=== PATIENT | female | born 1945 | race Caucasian/White ===

== ENCOUNTER 2016-10-26 15:03 | Outpatient (CLI) | payer MEDICARE | END 2016-10-26 15:04 | disposition home or self-care (01) | DX: J44.9 Chronic obstructive pulmonary disease, unspecified (principal); R89.9 Unspecified abnormal finding in specimens from other organs, systems and tissues; R63.0 Anorexia; R63.4 Abnormal weight loss; R53.83 Other fatigue; Z79.899 Other long term (current) drug therapy ==

== ENCOUNTER 2016-11-17 13:46 | Outpatient (CLI) | payer MEDICARE | END 2016-11-17 13:47 | disposition home or self-care (01) | DX: F31.9 Bipolar disorder, unspecified (principal) ==

== ENCOUNTER 2016-12-21 16:57 | Outpatient (CLI) | payer MEDICARE | END 2016-12-21 16:58 | disposition home or self-care (01) | DX: R10.2 Pelvic and perineal pain (principal); Z90.710 Acquired absence of both cervix and uterus ==

== ENCOUNTER 2017-11-10 13:11 | Outpatient (CLI) | payer MEDICARE ==
[2017-11-10 18:24] LABS: BASOPHILS # (AUTO) 0.1 10^3/uL (0.0-0.1); BASOPHILS % (AUTO) 0.6 %; EOSINOPHILS % (AUTO) 0.1 %; HGB - HEMOGLOBIN 14.1 g/dL (12.0-16.0); LYMPHOCYTES # (AUTO) 1.1 10^3/uL (1.5-3.5); LYMPHOCYTES % (AUTO) 7.9 %; MEAN CORPUSCULAR HEMOGLOBIN 29.3 pg (27.0-31.0); MEAN CORPUSCULAR HGB CONC 33.3 g/dL (32.0-36.0); MEAN PLATELET VOLUME 10.9 fL (7.9-10.8); MONOCYTES # (AUTO) 0.4 10^3/uL (0.0-1.0); MONOCYTES % (AUTO) 3.1 %; NEUTROPHILS # (AUTO) 12.3 10^3/uL (1.5-6.6); NEUTROPHILS % (AUTO) 88.3 %; PLT - PLATELET COUNT 241 10^3/uL (130-450); RED BLOOD COUNT 4.82 10^6/uL (4.20-5.40); RED CELL DISTRIBUTION WIDTH 13.9 % (12.0-15.0)
[2017-11-10 18:27] LABS: ALBUMIN 4.4 g/dL (3.2-5.5); ALBUMIN/GLOBULIN RATIO 1.7 (1.0-2.2); ALKALINE PHOSPHATASE 50 IU/L (42-121); ALT ALANINE AMINOTRANSFERASE 18 IU/L (10-60); AST ASPARTATE AMINOTRANSFERASE 25 IU/L (10-42); BUN - BLOOD UREA NITROGEN 16 mg/dL (6-20); CALCIUM 9.6 mg/dL (8.5-10.3); CARBON DIOXIDE - CO2 27 mmol/L (21-32); CHLORIDE 100 mmol/L (101-111); CHOL/HDL RATIO 2.6 (<4.4); CHOLESTEROL 182 mg/dL; CREATININE 0.7 mg/dL (0.4-1.0); GFR - MDRD 83 (>89); GLUCOSE 109 mg/dL (70-100); HDL CHOLESTEROL 69 mg/dL; LDL CHOLESTEROL,CALCULATED 94 mg/dL; LDL/HDL RATIO 1.4 (<4.4); SODIUM 137 mmol/L (135-145); VLDL CHOLESTEROL 19 mg/dL
[2017-11-10 18:44] LABS: VALPROIC ACID (DEPAKOTE) < 10.0 ug/mL
== END 2017-11-10 13:12 | disposition home or self-care (01) ==
LOC: LAB.F 13:11
PROVIDERS: ATTEND Family Medicine
DX: F31.9 Bipolar disorder, unspecified (principal); J44.9 Chronic obstructive pulmonary disease, unspecified; R63.4 Abnormal weight loss; R10.13 Epigastric pain; Z51.81 Encounter for therapeutic drug level monitoring; Z79.899 Other long term (current) drug therapy
CPT/HCPCS: 36415; 80053; 80061; 80164; 82306; 83721; 84443; 85025

== ENCOUNTER 2018-08-10 16:46 | Outpatient (CLI) | payer MEDICARE | END 2018-08-10 16:47 | disposition home or self-care (01) | LOC: EMS 16:46 | PROVIDERS: ATTEND Surgery | DX: R06.02 Shortness of breath (principal); Z53.20 Procedure and treatment not carried out because of patient's decision for unspecified reasons ==

== ENCOUNTER 2018-12-18 08:54 | Outpatient (CLI) | payer MEDICARE ==
[2018-12-18 10:41] LABS: BASOPHILS # (AUTO) 0.1 10^3/uL (0.0-0.1); BASOPHILS % (AUTO) 0.6 %; EOSINOPHILS # (AUTO) 0.2 10^3/uL (0.0-0.7); EOSINOPHILS % (AUTO) 1.9 %; HGB - HEMOGLOBIN 13.5 g/dL (12.0-16.0); LYMPHOCYTES # (AUTO) 3.9 10^3/uL (1.5-3.5); LYMPHOCYTES % (AUTO) 35.8 %; MEAN CORPUSCULAR HEMOGLOBIN 29.4 pg (27.0-31.0); MEAN CORPUSCULAR HGB CONC 33.4 g/dL (32.0-36.0); MEAN PLATELET VOLUME 10.7 fL (7.9-10.8); MONOCYTES # (AUTO) 1.1 10^3/uL (0.0-1.0); MONOCYTES % (AUTO) 9.9 %; NEUTROPHILS # (AUTO) 5.7 10^3/uL (1.5-6.6); NEUTROPHILS % (AUTO) 51.8 %; PLT - PLATELET COUNT 233 10^3/uL (130-450); RED BLOOD COUNT 4.61 10^6/uL (4.20-5.40); RED CELL DISTRIBUTION WIDTH 13.8 % (12.0-15.0)
[2018-12-18 10:44] LABS: HB2 TOTAL 14.1 g/dL; HEMOGLOBIN A1C 0.49 g/dL; HEMOGLOBIN A1C % 5.3 % (4.6-6.2)
[2018-12-18 10:54] LABS: ALBUMIN 3.9 g/dL (3.2-5.5); ALBUMIN/GLOBULIN RATIO 1.7 (1.0-2.2); ALKALINE PHOSPHATASE 49 IU/L (42-121); ALT ALANINE AMINOTRANSFERASE 18 IU/L (10-60); AST ASPARTATE AMINOTRANSFERASE 23 IU/L (10-42); BILIRUBIN,TOTAL 0.6 mg/dL (0.2-1.0); BUN - BLOOD UREA NITROGEN 16 mg/dL (6-20); CALCIUM 9.1 mg/dL (8.5-10.3); CARBON DIOXIDE - CO2 28 mmol/L (21-32); CHLORIDE 100 mmol/L (101-111); CHOLESTEROL 179 mg/dL; CREATININE 0.8 mg/dL (0.4-1.0); GFR - MDRD 71 (>89); GLUCOSE 97 mg/dL (70-100); HDL CHOLESTEROL 60 mg/dL; LDL CHOLESTEROL,CALCULATED 103 mg/dL; LDL/HDL RATIO 1.7 (<4.4); SODIUM 136 mmol/L (135-145); TOTAL PROTEIN 6.2 g/dL (6.7-8.2); VALPROIC ACID (DEPAKOTE) 102.4 ug/mL; VLDL CHOLESTEROL 16 mg/dL
== END 2018-12-18 08:55 | disposition home or self-care (01) ==
LOC: LAB.F 08:54
PROVIDERS: ATTEND Registered Nurse
DX: Z00.00 Encounter for general adult medical examination without abnormal findings (principal); F31.9 Bipolar disorder, unspecified
CPT/HCPCS: 36415; 80053; 80061; 80164; 83036; 83721; 84443; 85025

== ENCOUNTER 2019-05-06 15:42 | Outpatient (CLI) | payer MEDICARE | END 2019-05-06 15:43 | disposition critical access hospital (66) | LOC: EMS 15:42 | PROVIDERS: ATTEND Surgery | DX: M54.5 Low back pain (principal); R06.02 Shortness of breath | CPT/HCPCS: A0425; A0427 ==

== ENCOUNTER 2019-05-06 16:15 | Emergency (ER) | payer MEDICARE ==
[2019-05-06] MEDS ORDERED: KETOROLAC 30 MG/ML VIAL IVP STA (16:38)
[2019-05-06] MEDS ORDERED: CYCLOBENZAPRINE 10 MG TABLET PO STA (16:38)
--- NOTE | 2019-05-06 16:43 | ED Physician Documentation ---
PD HPI BACK PAIN - Stated complaint Stated Complaint: BACK PX - Chief complaint Chief Complaint: Back Pain - History obtained from History obtained from: Patient, EMS - History of Present Illness Timing - onset: How many days ago (2) Timing - duration: Days (2) Timing - details: Gradual onset Pain level max: 7 Pain level now: 5 Location: Lower, Right, Left Quality: Pain, Spasm Associated symptoms: No: Fever, Weakness, Numbness, Incontinent of urine, Unable to urinate, Hematuria, Incontinent of stool Improves with: Rest Worsened by: Movement, Lifting Contributing factors: Other (cleaning the shower) Similar symptoms before: Has not had sx before Recently seen: Not recently seen Review of Systems Ten Systems: 10 systems reviewed and negative Constitutional: denies: Fever, Chills Respiratory: denies: Cough GI: denies: Nausea, Vomiting, Diarrhea : denies: Dysuria, Incontinent, Hematuria Skin: denies: Rash Musculoskeletal: denies: Neck pain Neurologic: denies: Focal weakness, Numbness, Headache PD PAST MEDICAL HISTORY - Past Medical History Past Medical History: Yes Respiratory: COPD Endocrine/Autoimmune: HyPOthyroidism - Present Medications Home Medications: Ambulatory Orders Medication Instructions Recorded Confirmed Albuterol Sulf [Ventolin Hfa 1 - 2 puffs INH Q4HR PRN 05/06/19 05/06/19 Inhaler] Ciclesonide [Alvesco] 6.1 gm IH 05/06/19 Cyclobenzaprine [Flexeril] 10 mg PO TID PRN #20 tablet 05/06/19 Hydrocodone/Acetaminophen 1 - 2 each PO Q6H PRN #14 tablet 05/06/19 [Hydrocodon-Acetaminophen 5-325] Ipratropium/Albuterol [Duoneb] 3 ml INH Q6H 05/06/19 05/06/19 Levothyroxine [Synthroid] 50 mcg PO QDAC 05/06/19 05/06/19 Tiotropium Br/Olodaterol HCl 4 gm IH 05/06/19 [Stiolto Respimat Inhal [place]] - Allergies Allergies/Adverse Reactions: Allergies Allergy/AdvReac Type Severity Reaction Status Date / Time Barbiturates Allergy Unknown Verified 05/06/19 16:31 - Living Situation Living Situation: reports: With family Living Arrangement: reports: At home - Social History Does the pt have substance abuse?: No - Family History Family history: reports: Non contributory PD ED PE NORMAL - Vitals Vital signs reviewed: Yes - General General: Alert and oriented X 3, No acute distress, Well developed/nourished - HEENT HEENT: PERRL, Moist mucous membranes - Neck Neck: Supple, no meningeal sign - Cardiac Cardiac: RRR, Strong equal pulses - Respiratory Respiratory: No respiratory distress, Clear bilaterally - Abdomen Abdomen: Soft, Non tender, Non distended - Back Back: Other (Mild low lumbar tenderness to palpation. Mostly paraspinal. No step-off or deformity. Spasm present.) - Derm Derm: Warm and dry - Extremities Extremities: Other (Normal bilateral lower extremity patellar and ankle jerk reflexes. Normal great toe extension bilaterally. no saddle anesthesia) - Neuro Neuro: Alert and oriented X 3, No motor deficit, No sensory deficit - Psych Psych: Normal mood, Normal affect Results - Vitals Vitals: Vital Signs - 24 hr 05/06/19 05/06/19 05/06/19 16:15 16:31 18:21 Temperature 36.6 C Heart Rate 79 71 73 Respiratory 20 18 16 Rate Blood Pressure 141/74 H 141/97 H 139/86 H O2 Saturation 92 97 98 05/06/19 18:48 Temperature 36.5 C Heart Rate Respiratory Rate Blood Pressure O2 Saturation Oxygen O2 Source Nasal cannula - Rads (name of study) lumbar spine xray Radiology: Prelim report reviewed, EMP read contemporaneously, See rad report (No acute abnormality) PD MEDICAL DECISION MAKING - ED course Complexity details: reviewed results, re-evaluated patient, considered differential (No cauda equina, no spinal epidural abscess, no fracture, no aortic dissection or evidence of aneursym rupture), d/w patient, d/w family ED course: 73-year-old female presents to the emergency department what appears to be back spasm. Pain well controlled. Feels better. No acute findings on x-ray. No evidence of cauda equina or epidural abscess. No fractures. We will continue pain medications and muscle relaxants for home. Patient will follow-up with her doctor. Patient counseled regarding signs and symptoms for which I believe and urgent re-evaluation would be necessary. Patient with good understanding of and agreement to plan and is comfortable going home at this time This document was made in part using voice recognition software. While efforts are made to proofread this document, sound alike and grammatical errors may occur. Ambulating well Departure - Departure Disposition: 01 Home, Self Care Clinical Impression: Back pain Qualifiers: Back pain location: low back pain Chronicity: acute Back pain laterality: bilateral Sciatica presence: without sciatica Qualified Code(s): M54.5 - Low back pain Condition: Good Instructions: ED Spasm Back No Trauma Follow-Up: Hernán Hebert MD [Primary Care Provider] - Within 3 Days Prescriptions: Cyclobenzaprine [Flexeril] 10 mg PO TID PRN #20 tablet PRN Reason: Spasms Hydrocodone/Acetaminophen [Hydrocodon-Acetaminophen 5-325] 1 - 2 each PO Q6H PRN #14 tablet PRN Reason: pain Comments: Use the medications as prescribed. This should improve over the next few days. Continue to gently stretch her back. Return if you worsen. Do not drink alcohol or drive while on narcotic pain medicine. Note that many narcotic pain relievers also contain tylenol/acetaminophen. Please ensure that your total dose of acetaminophen from all sources does not exceed 3 grams (3000mg) per day. You may constipated on this medication, take a stool softener such as "Colace" twice a day while you are on it. Also recommend a tudi-rut-kagenjh laxative such as senna or MiraLAX any day that you do not have a bowel movement. If you received narcotic pain medication in the emergency department, do not drive or operate machinery for the next 24 hours. Discharge Date/Time: 05/06/19 18:48
--- NOTE | 2019-05-06 17:49 | XRAY Report ---
Reason: low back pain Procedure Date: 05/06/2019 Accession Number: [id number] / [id number] Procedure: XR - Lumbar Spine 2 View CPT Code: FULL RESULT: EXAM: LUMBOSACRAL SPINE RADIOGRAPHY EXAM DATE: 05/06/2019 05:14 PM. CLINICAL HISTORY: Low back pain. COMPARISONS: None. TECHNIQUE: 3 views. FINDINGS: Alignment: Normal. No spondylolisthesis or scoliosis. Bones: Five bld-tkf-faggchh lumbar vertebral bodies are present. Vertebral bodies appeared normal in height. No acute fracture. Disks: There is moderate disk height loss at L4-L5. There is mild to moderate disk height loss at L1-L2 and L2-L3. Facets: Satisfactory alignment. Sacroiliac Joints: Unremarkable. Soft Tissues: Normal. The visualized bowel gas pattern is normal. IMPRESSION: 1. Moderate disk height loss at L4-L5 with multilevel chronic degenerative disk disease. No fracture or subluxation. RADIA
[2019-05-06] MEDS ORDERED: HYDROcod/ACET 5/325 Prepack 4 PO STA (18:02)
[2019-05-06 18:23] VITALS: BP 139/86
== END 2019-05-06 18:48 | disposition home or self-care (01) ==
LOC: EDBD → ED 16:15
DX: M54.5 Low back pain (principal)
CPT/HCPCS: 72100; 96374; 99283; 99284; A9270

== ENCOUNTER 2021-01-31 09:44 | Outpatient (CLI) | payer MEDICARE ==
[2021-01-31 15:23] LABS: BASOPHILS # (AUTO) 0.1 10^3/uL (0.0-0.1); BASOPHILS % (AUTO) 0.9 %; EOSINOPHILS # (AUTO) 0.2 10^3/uL (0.0-0.7); EOSINOPHILS % (AUTO) 2.3 %; HCT - HEMATOCRIT 41.6 % (37.0-47.0); HGB - HEMOGLOBIN 13.7 g/dL (12.0-16.0); LYMPHOCYTES % (AUTO) 39.9 %; MEAN CORPUSCULAR HEMOGLOBIN 29.5 pg (27.0-31.0); MEAN CORPUSCULAR HGB CONC 32.9 g/dL (32.0-36.0); MEAN CORPUSCULAR VOLUME 89.5 fL (81.0-99.0); MEAN PLATELET VOLUME 12.9 fL (7.9-10.8); MONOCYTES # (AUTO) 0.8 10^3/uL (0.0-1.0); MONOCYTES % (AUTO) 10.1 %; NEUTROPHILS # (AUTO) 3.5 10^3/uL (1.5-6.6); NEUTROPHILS % (AUTO) 46.5 %; PLT - PLATELET COUNT 238 10^3/uL (130-450); RED BLOOD COUNT 4.65 10^6/uL (4.20-5.40); RED CELL DISTRIBUTION WIDTH 13.3 % (12.0-15.0); WHITE BLOOD COUNT 7.5 x10^3/uL (4.8-10.8)
[2021-01-31 15:56] LABS: ALBUMIN/GLOBULIN RATIO 1.6 (1.0-2.2); ALKALINE PHOSPHATASE 53 IU/L (42-121); ALT ALANINE AMINOTRANSFERASE 12 IU/L (10-60); AST ASPARTATE AMINOTRANSFERASE 18 IU/L (10-42); BILIRUBIN,TOTAL 0.9 mg/dL (0.2-1.0); BUN - BLOOD UREA NITROGEN 8 mg/dL (6-20); CALCIUM 9.4 mg/dL (8.5-10.3); CARBON DIOXIDE - CO2 24 mmol/L (21-32); CHLORIDE 98 mmol/L (101-111); CHOL/HDL RATIO 3.5 (<4.4); CHOLESTEROL 177 mg/dL; CREATININE 0.6 mg/dL (0.4-1.0); GFR - MDRD 98 (>89); GLUCOSE 98 mg/dL (70-100); HDL CHOLESTEROL 50 mg/dL; LDL CHOLESTEROL,CALCULATED 105 mg/dL; LDL/HDL RATIO 2.1 (<4.4); POTASSIUM 3.8 mmol/L (3.5-5.0); SODIUM 132 mmol/L (135-145); TOTAL PROTEIN 6.5 g/dL (6.7-8.2); TRIGLYCERIDES 108 mg/dL; VLDL CHOLESTEROL 22 mg/dL
[2021-01-31 16:06] LABS: THYROID STIMULATING HORMONE 4.03 uIU/mL (0.34-5.60)
== END 2021-01-31 09:45 | disposition home or self-care (01) ==
LOC: LAB.S 09:44
PROVIDERS: ATTEND Internal Medicine
DX: Z00.00 Encounter for general adult medical examination without abnormal findings (principal); J44.9 Chronic obstructive pulmonary disease, unspecified; E03.9 Hypothyroidism, unspecified
CPT/HCPCS: 36415; 80053; 80061; 83721; 84443; 85025

== ENCOUNTER 2022-08-04 07:00 | Outpatient (CLI) | payer MEDICARE ==
--- NOTE | 2022-08-04 17:27 | XRAY Report ---
PROCEDURE: Chest 2 View X-Ray INDICATIONS: COPD TECHNIQUE: 2 views of the chest were acquired. COMPARISON: None FINDINGS: Surgical changes and devices: None. Lungs and pleura: No pleural effusions or pneumothorax. The lungs are hyperinflated. There is a 2 cm irregular nodular opacity in the lateral right upper lobe. Lungs are otherwise clear. Minor bronchia l wall thickening in the perihilar regions. Mediastinum: Mediastinal contours are normal. Heart size is normal. Bones and chest wall: No suspicious bony abnormalities. Soft tissues appear unremarkable. IMPRESSION: 1. Changes of emphysema and COPD. 2. 2 cm right upper lobe nodule. Chest CT with contrast is recommended for further evaluation. Reviewed by: Gogo Rosado MD on 08/04/2022 5:26 PM PST Approved by: Gogo Rosado MD on 08/04/2022 5:26 PM PST Station ID: [id number]
== END 2022-08-04 07:01 | disposition home or self-care (01) ==
LOC: DI.S 07:00
PROVIDERS: ATTEND Emergency Medicine
DX: J43.9 Emphysema, unspecified (principal)

== ENCOUNTER 2022-08-25 14:22 | Outpatient (CLI) | payer MEDICARE ==
[2022-08-25 14:57] LABS: CREATININE 0.6 mg/dL (0.4-1.0)
[2022-08-25] MEDS ORDERED: iohexoL-300 100 ML VIAL IVP ONE (16:25)
--- NOTE | 2022-08-25 17:52 | CT Report ---
PROCEDURE: CHEST W INDICATIONS: LUNG NODULE CONTRAST:100mL Omni 300 TECHNIQUE: After the administration of intravenous contrast, 1 mm axial images were acquired from the pulmonary apices through the posterior costophrenic angles. Axial 5 mm soft tissue kernel reconstructions were performed as well as 8 mm axial MIP and coronal and sagittal 5 mm reformations. For radiation dose reduction, the following was used: automated exposure control, adjustment of mA and/or kV according to patient size. COMPARISON: Chest 2 views dated 08/04/2022. FINDINGS: Image quality: Excellent. Lungs and pleura: Large spiculated right upper lobe mass consistent with primary bronchogenic carcin leonila measuring 2.9 x 2.5 cm on image 68/4. There is retraction of the subjacent pleura to the mass, li bobby representing pleural surface involvement by neoplasm. No other pulmonary masses. At least modera te centrilobular emphysema. No acute air space opacities. No pleural effusions or pneumothorax. J Luis tral and peripheral airways are patent and normal in caliber. Mediastinum: Heart size is normal. No pericardial effusion. No mediastinal or hilar adenopathy by size criteria. There is a small right hilar lymph node which is not suspicious by size criteria. Tho racic aorta and central pulmonary arteries are normal in size. Esophagus is normal in caliber. No h iatal hernia. Bones and chest wall: No suspicious bony lesions. No vertebral body compression fractures. No axil kervin or supraclavicular adenopathy by size criteria. Thyroid is unremarkable.. Abdomen: Visualized upper abdominal solid organs appear normal. Upper abdominal bowel loops are nor mal in caliber. IMPRESSION: 1. 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 2. No evidence of metastatic disease in the chest. Comment: The lung mass would be amenable to CT-guided biopsy for diagnosis, with a relatively large r isk of pneumothorax. Also, would recommend PET/CT for staging of presence or absence of metastatic di sease. CLINICAL RECOMMENDATION STATEMENTS: In patients <35 years with an ITN detected on CT, MRI, or extrathyroidal ultrasound, the Committee re commends further evaluation with dedicated thyroid ultrasound if the nodule is "e1 cm and has no susp icious imaging features, and if the patient has normal life expectancy. In patients "e35 years with an ITN detected on CT, MRI, or extrathyroidal ultrasound, the Committee r ecommends further evaluation with dedicated thyroid ultrasound if the nodule is "e1.5 cm and has no s uspicious imaging features, and if the patient has normal life expectancy. (ACR, 2014) Reviewed by: Flo Hall MD on 08/25/2022 5:51 PM PST Approved by: Flo Hall MD on 08/25/2022 5:51 PM PST Station ID: [id number]
== END 2022-08-25 14:23 | disposition home or self-care (01) ==
LOC: LAB 14:22
PROVIDERS: ATTEND Nurse Practitioner
DX: C34.11 Malignant neoplasm of upper lobe, right bronchus or lung (principal); J43.2 Centrilobular emphysema
CPT/HCPCS: 36415; 82565

== ENCOUNTER 2022-11-04 08:48 | Outpatient (CLI) | payer MEDICARE | END 2022-11-04 23:59 | disposition left against medical advice (07) | LOC: EMS 08:48 | DX: R06.03 Acute respiratory distress (principal); R32 Unspecified urinary incontinence ==

== ENCOUNTER 2022-11-04 18:19 | Outpatient (CLI) | payer MEDICARE | END 2022-11-04 23:59 | disposition critical access hospital (66) | LOC: EMS 18:19 | DX: R06.03 Acute respiratory distress (principal) | CPT/HCPCS: A0425; A0427 ==

== ENCOUNTER 2022-11-04 18:49 | Inpatient (IN) | payer MEDICARE ==
--- NOTE | 2022-11-04 19:27 | ED Physician Documentation ---
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 She reportedly called EMS this morning and received a neb treatment but did not want transport at that time. Her breathing has become worse throughout the day which is unrelieved by her home breathing treatments or the fact that she is already on prednisone 20 mg. EMS was again called this evening and patient was given 1 g of IV magnesium as well as numerous DuoNeb treatments and 125 of IV Solu-Medrol. Per RN and RT at the bedside, her breathing has started to improve since she arrived to the emergency department. She reports having a productive cough of yellow sputum. Denies blood in her sputum. She denies known fevers. She does continue to smoke cigarettes.She is scheduled for her first radiation appointment in the upcoming weeks. She is not currently on chemotherapy. Review of Systems Constitutional: denies: Fever Cardiac: denies: Chest pain / pressure Respiratory: reports: Dyspnea, Cough GI: denies: Abdominal Pain, Vomiting Neurologic: denies: Headache PD PAST MEDICAL HISTORY - Past Medical History Respiratory: COPD Endocrine/Autoimmune: HyPOthyroidism - Past Surgical History General: Appendectomy - Present Medications Home Medications: Ambulatory Orders Medication Instructions Recorded Confirmed Albuterol Sulf [Ventolin Hfa 1 - 2 puffs INH Q4HR PRN 05/06/19 05/06/19 Inhaler] Ciclesonide [Alvesco] 6.1 gm IH BID 05/06/19 Cyclobenzaprine [Flexeril] 10 mg PO TID PRN #20 tablet 05/06/19 Hydrocodone/Acetaminophen 1 - 2 each PO Q6H PRN #14 tablet 05/06/19 [Hydrocodon-Acetaminophen 5-325] Ipratropium/Albuterol [Duoneb] 3 ml INH Q6H 05/06/19 05/06/19 Levothyroxine [Synthroid] 5 mcg PO QDAC 05/06/19 05/06/19 Tiotropium Br/Olodaterol HCl 4 gm IH 05/06/19 [Stiolto Respimat Inhal [place]] Alprazolam [Xanax] 0.25 mg PO ONCE 09/13/22 09/13/22 Clotrimazole Umer [Clotrimazole] 10 mg MM PRN PRN 09/13/22 09/13/22 Divalproex Sodium [Depakote] 500 mg PO BID 09/13/22 09/13/22 Fluticasone 44 Mcg [Flovent] 120 puffs INH PRN PRN 09/13/22 09/13/22 Tiotropium Br/Olodaterol HCl 2.5 gm IH BID 09/13/22 09/13/22 [Stiolto Respimat Inhal [place]] predniSONE [Prednisone 21-TAB dose 20 mg PO DAILY 7 Days #14 tab 11/01/22 pack] - Allergies Allergies/Adverse Reactions: Allergies Allergy/AdvReac Type Severity Reaction Status Date / Time Barbiturates Allergy Unknown Verified 05/06/19 16:31 - Social History Smoking Status: Current every day smoker Does the pt have substance abuse?: No PD ED PE NORMAL - General General: Alert and oriented X 3, Other (Tachypneic; frail appearing) - HEENT HEENT: Atraumatic - Neck Neck: Supple, no meningeal sign - Cardiac Cardiac: RRR - Respiratory Respiratory: Other (Tachypneic; diminished breath sounds/wheezing). No: No respiratory distress, Clear bilaterally - Abdomen Abdomen: Soft, Non tender - Extremities Extremities: No edema, No calf tenderness / cord - Neuro Neuro: Normal speech Results - Vitals Vitals: Vital Signs - 24 hr 11/04/22 11/04/22 11/04/22 18:58 19:24 19:30 Temperature 36.4 C L Heart Rate 104 H 105 H 105 H Respiratory 30 H 32 H 27 H Rate Blood Pressure 131/95 H 148/83 H 125/73 O2 Saturation 97 96 91 L If not protocol : Oxygen Flow, liters/minute 11/04/22 11/04/22 11/04/22 20:00 20:02 20:27 Temperature Heart Rate 104 H 107 H Respiratory 22 23 Rate Blood Pressure 125/78 111/73 O2 Saturation 88 L 90 L 92 If not protocol 2 : Oxygen Flow, liters/minute 11/04/22 11/04/22 11/04/22 20:30 20:35 21:00 Temperature Heart Rate 104 H 97 107 H Respiratory 28 H 26 H 32 H Rate Blood Pressure 123/64 130/83 H O2 Saturation 92 94 If not protocol 2 1 2 : Oxygen Flow, liters/minute 11/04/22 11/04/22 11/04/22 21:30 21:40 22:00 Temperature Heart Rate 103 H 100 106 H Respiratory 31 H 30 H 38 H Rate Blood Pressure 118/79 127/78 O2 Saturation 95 97 If not protocol 2 1 2 : Oxygen Flow, liters/minute 11/04/22 11/04/22 22:30 23:00 Temperature Heart Rate 109 H 104 H Respiratory 32 H 25 H Rate Blood Pressure 140/87 H 124/78 O2 Saturation 95 95 If not protocol 2 2 : Oxygen Flow, liters/minute Oxygen O2 Source Room air Oxygen Flow Rate 2 - Labs Labs: Laboratory Tests 11/04/22 11/04/22 11/04/22 19:40 19:40 19:40 WBC 16.0 H RBC 4.88 Hgb 14.8 Hct 44.1 MCV 90.4 MCH 30.3 MCHC 33.6 RDW 14.5 Plt Count 252 MPV 10.9 H Neut # (Auto) 12.5 H Lymph # (Auto) 2.0 Smith # (Auto) 1.0 Eos # (Auto) 0.2 Baso # (Auto) 0.1 Absolute Nucleated RBC 0.00 Nucleated RBC % 0.0 VBG pH VBG pCO2 VBG pO2 VBG HCO3 VBG Total CO2 VBG O2 Saturation VBG Base Excess Sodium 135 Potassium 3.6 Chloride 99 L Carbon Dioxide 28 Anion Gap 8.0 BUN 11 Creatinine 0.5 Estimated GFR (MDRD) 120 Glucose 132 H Calcium 8.5 Total Bilirubin 1.1 H AST 19 ALT 18 Alkaline Phosphatase 53 B-Natriuretic Peptide 97 Total Protein 6.3 L Albumin 3.6 Globulin 2.7 Albumin/Globulin Ratio 1.3 Nasal Adenovirus (PCR) Nasal B. parapertussis DNA (PCR) Nasal Coronavir 229E PCR Nasal Coronavir HKU1 PCR Nasal Coronavir NL63 PCR Nasal Coronavir OC43 PCR Nasal Enterovir/Rhinovir PCR Nasal Influenza B PCR Nasal Influenza A PCR Nasal Parainfluen 1 PCR Nasal Parainfluen 2 PCR Nasal Parainfluen 3 PCR Nasal Parainfluen 4 PCR Nasal RSV (PCR) Nasal B.pertussis DNA PCR Nasal C.pneumoniae (PCR) Tab Human Metapneumo PCR Nasal M.pneumoniae (PCR) Nasal SARS-CoV-2 (PCR) 11/04/22 11/04/22 19:40 20:25 WBC RBC Hgb Hct MCV MCH MCHC RDW Plt Count MPV Neut # (Auto) Lymph # (Auto) Smith # (Auto) Eos # (Auto) Baso # (Auto) Absolute Nucleated RBC Nucleated RBC % VBG pH 7.481 H VBG pCO2 38.4 L VBG pO2 73.0 H VBG HCO3 28.0 VBG Total CO2 29.2 H VBG O2 Saturation 95.5 H VBG Base Excess 4.4 H Sodium Potassium Chloride Carbon Dioxide Anion Gap BUN Creatinine Estimated GFR (MDRD) Glucose Calcium Total Bilirubin AST ALT Alkaline Phosphatase B-Natriuretic Peptide Total Protein Albumin Globulin Albumin/Globulin Ratio Nasal Adenovirus (PCR) NOT DETECTED Nasal B. parapertussis DNA (PCR) NOT DETECTED Nasal Coronavir 229E PCR NOT DETECTED Nasal Coronavir HKU1 PCR NOT DETECTED Nasal Coronavir NL63 PCR NOT DETECTED Nasal Coronavir OC43 PCR NOT DETECTED Nasal Enterovir/Rhinovir PCR NOT DETECTED Nasal Influenza B PCR NOT DETECTED Nasal Influenza A PCR NOT DETECTED Nasal Parainfluen 1 PCR NOT DETECTED Nasal Parainfluen 2 PCR NOT DETECTED Nasal Parainfluen 3 PCR NOT DETECTED Nasal Parainfluen 4 PCR NOT DETECTED Nasal RSV (PCR) NOT DETECTED Nasal B.pertussis DNA PCR NOT DETECTED Nasal C.pneumoniae (PCR) NOT DETECTED Tab Human Metapneumo PCR NOT DETECTED Nasal M.pneumoniae (PCR) NOT DETECTED Nasal SARS-CoV-2 (PCR) NOT DETECTED PD Medical Decision Making - ED course Complexity details: reviewed results, re-evaluated patient, d/w patient ED course: Patient is a 76-year-old female with a history of emphysema and lung cancer presenting for evaluation of shortness of breath. On Initial evaluation she is tachypneic with wheezing.She already received several nebs from EMS along with IV magnesium and IV Solu-Medrol. Labs were obtained including CBC, chemistry, respiratory panel And a chest x-ray. VBG was ordered to see if patient was acidotic and pH appears relatively normal.Patient was given 1 dose of IV Ativan to see if this would help with her increased work of breathing and it did appear to make her more calm.Labs are significant for leukocytosis of 16,000. Patient has been on prednisone which could account for this.EKG is a sinus rhythm. Chest x-ray is negative for consolidation or effusion. Patient was given additional neb treatments. She Did require supplemental oxygen to keep her levels above 88%.She remained quite tachypneic with minimal exertion.She has had recent URI symptoms her respiratory panel was obtained which is negative. She has had change in sputum production so was given a dose of azithromycin.Patient is not yet appropriate for discharge and tele hospitalist was consulted for admission. Departure - Departure Disposition: [address] [facility] DC/Xfer Clinical Impression: COPD with exacerbation, Hypoxia Condition: Fair Discharge Date/Time: 11/04/22 23:59
[2022-11-04] MEDS ORDERED: LORazepam 2 MG/ML VIAL IVP STA (19:29)
[2022-11-04 19:47] LABS: BASOPHILS # (AUTO) 0.1 10^3/uL (0.0-0.1); BASOPHILS % (AUTO) 0.5 %; EOSINOPHILS # (AUTO) 0.2 10^3/uL (0.0-0.7); EOSINOPHILS % (AUTO) 0.9 %; HCT - HEMATOCRIT 44.1 % (37.0-47.0); HGB - HEMOGLOBIN 14.8 g/dL (12.0-16.0); LYMPHOCYTES % (AUTO) 12.2 %; MEAN CORPUSCULAR HEMOGLOBIN 30.3 pg (27.0-31.0); MEAN CORPUSCULAR HGB CONC 33.6 g/dL (32.0-36.0); MEAN CORPUSCULAR VOLUME 90.4 fL (81.0-99.0); MEAN PLATELET VOLUME 10.9 fL (7.9-10.8); NEUTROPHILS # (AUTO) 12.5 10^3/uL (1.5-6.6); NEUTROPHILS % (AUTO) 77.8 %; PLT - PLATELET COUNT 252 10^3/uL (130-450); RED BLOOD COUNT 4.88 10^6/uL (4.20-5.40); RED CELL DISTRIBUTION WIDTH 14.5 % (12.0-15.0)
[2022-11-04 19:48] LABS: VBG PH 7.481 (7.31-7.41)
[2022-11-04 19:49] LABS: VBG BASE EXCESS 4.4 mmol/L (-2 - +2); VBG OXYGEN SATURATION 95.5 % (60-80); VBG PCO2 38.4 mmHg (41-51); VBG TOTAL CO2 29.2 mmol/L (24-29)
--- NOTE | 2022-11-04 19:58 | XRAY Report ---
PROCEDURE: Chest 1 View X-Ray INDICATIONS: SOA TECHNIQUE: One view of the chest was acquired. COMPARISON: 08/25/[address] FINDINGS: Surgical changes and devices: None. Lungs and pleura: Right upper lung nodule is better assessed on CT. No airspace consolidation or ple ural effusion. Emphysema. Mediastinum: Mediastinal contours appear normal. Heart size is normal. Bones and chest wall: No suspicious bony lesions. Overlying soft tissues appear unremarkable. IMPRESSION: No acute radiographic abnormality. Right upper lung nodule, better assessed on CT. Emphysema. Reviewed by: Romario Gutierrez MD on 11/04/2022 7:56 PM PDT Approved by: Romario Gutierrez MD on 11/04/2022 7:56 PM PDT Station ID: [id number]
[2022-11-04 19:59] LABS: ALBUMIN 3.6 g/dL (3.2-5.5); ALBUMIN/GLOBULIN RATIO 1.3 (1.0-2.2); BILIRUBIN,TOTAL 1.1 mg/dL (0.2-1.0); CALCIUM 8.5 mg/dL (8.5-10.3); CREATININE 0.5 mg/dL (0.4-1.0); POTASSIUM 3.6 mmol/L (3.5-5.0); TOTAL PROTEIN 6.3 g/dL (6.7-8.2)
[2022-11-04] MEDS ORDERED: IPRATROPIUM/ALBUTEROL 3 ML NEB INH STA (20:11)
[2022-11-04] MEDS ORDERED: ALBUTEROL NEB 2.5 MG/3 ML INH STA ×2 (20:19→21:01)
[2022-11-04] MEDS ORDERED: AZITHROMYCIN INJ 500 MG in SODIUM CHLORIDE 0.9% 250 ML IV STA (21:01)
[2022-11-04 21:46] LABS: B. PARAPERTUSSIS- RESP PCR PAN NOT DETECTED; B. PERTUSSIS- RESP PCR PANEL NOT DETECTED; C. PNEUMONIAE- RESP PCR PANEL NOT DETECTED; CORONAVIRUS 229E-RESP PCR NOT DETECTED; CORONAVIRUS HKU1-RESP PCR NOT DETECTED; CORONAVIRUS NL63-RESP PCR NOT DETECTED; CORONAVIRUS OC43-RESP PCR NOT DETECTED; HUMAN METAPNEUMOVIRUS NOT DETECTED; INFLUENZA A- RESP PCR PANEL NOT DETECTED; INFLUENZA B - RESP PCR PANEL NOT DETECTED; M. PNEUMONIAE- RESP PCR PANEL NOT DETECTED; PARAINFLUENZA VIRUS 1 NOT DETECTED; PARAINFLUENZA VIRUS 2 NOT DETECTED; PARAINFLUENZA VIRUS 3 NOT DETECTED; PARAINFLUENZA VIRUS 4 NOT DETECTED; RHINOVIRUS/ENTEROVIRUS NOT DETECTED; RSV- RESP PCR PANEL NOT DETECTED; SARS-CoV-2 -RESP PCR PANEL NOT DETECTED
--- NOTE | 2022-11-04 23:00 | HISTORY & PHYSICAL EXAMINATION ---
Chief Complaint - Chief Complaint Chief Complaint: Shortness of breath History of Present Illness - Admitted From Admitted From:: ER - History Obtained From Records Reviewed: Yes History obtained from: Patient, ER staff, records Exam Limitations: H&P was conducted via video remotely, using Access Cart. 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 Pt does not have a PCP or a Plodding Machine Operator. In September, she had increased shortness of breath and went to a walk-in clinic, where she was put on Prednisone and antibiotics. They found a nodule on CXR and she was referred to an Oncologist. She does not have enough lung capacity to handle surgery, so her treatment will be only radiation, starting next week. Pt has continued to have shortness of breath since September and has been continued on Prednisone 20 mg daily via the walk-in clinic and her Oncologist. She has also had a cough x 1 month with occasional white sputum. Today, she had a sudden onset of increased shortness of breath and work of breathing. No CP, F/C, N/V, swelling of ankles. Her steroid MDI and rescue MDI were not helping much. She is living in an out-dated manufactured home in the [facility] that she has not been well enough to take care of and it needs a lot of work. She thinks the dust from her home + spending time outside in the cold has contributed towards her symptoms. Pt called EMS this AM, received a neb treatment, but thought she could manage at home. She had increased shortness of breath throughout the day, as well as urinary and stool incontinence with cough, so called EMS back. EMS gave her 1 g of IV Magnesium, DuoNeb treatments and 125 of IV Solu-Medrol. Pt does continue to smoke cigarettes, about 10 cigarettes/day. In the ER, SpO2 88% RA, 96% 2L NC O2, 131/95, HR 104, RR 30, T 36.4C, WBC 16. CXR: RUL Nodule, COPD, NAD Pt was given Duonebs, Ativan, and Azithromycin in the ER. History - Past Medical History Respiratory: reports: COPD Endocrine/Autoimmune: reports: HyPOthyroidism MRSA Hx?: No Other Past Medical History: lung cancer - Past Surgical History General: reports: Appendectomy - POLST Patient has POLST: No Meds/Allgy - Home Medications Home Medications: Ambulatory Orders Medication Instructions Recorded Confirmed Albuterol Sulf [Ventolin Hfa 1 - 2 puffs INH Q4HR PRN 05/06/19 05/06/19 Inhaler] Ciclesonide [Alvesco] 6.1 gm IH BID 05/06/19 Cyclobenzaprine [Flexeril] 10 mg PO TID PRN #20 tablet 05/06/19 Hydrocodone/Acetaminophen 1 - 2 each PO Q6H PRN #14 tablet 05/06/19 [Hydrocodon-Acetaminophen 5-325] Ipratropium/Albuterol [Duoneb] 3 ml INH Q6H 05/06/19 05/06/19 Levothyroxine [Synthroid] 5 mcg PO QDAC 05/06/19 05/06/19 Tiotropium Br/Olodaterol HCl 4 gm IH 05/06/19 [Stiolto Respimat Inhal [place]] Alprazolam [Xanax] 0.25 mg PO ONCE 09/13/22 09/13/22 Clotrimazole Umer [Clotrimazole] 10 mg MM PRN PRN 09/13/22 09/13/22 Divalproex Sodium [Depakote] 500 mg PO BID 09/13/22 09/13/22 Fluticasone 44 Mcg [Flovent] 120 puffs INH PRN PRN 09/13/22 09/13/22 Tiotropium Br/Olodaterol HCl 2.5 gm IH BID 09/13/22 09/13/22 [Stiolto Respimat Inhal [place]] predniSONE [Prednisone 21-TAB dose 20 mg PO DAILY 7 Days #14 tab 11/01/22 pack] - Allergies Allergies/Adverse Reactions: Allergies Allergy/AdvReac Type Severity Reaction Status Date / Time Barbiturates Allergy Unknown Verified 05/06/19 16:31 Review of Systems - All Other Systems All Other Systems: reports: Reviewed and negative Exam - Vital Signs Reviewed Vital Signs: Yes Vital Signs: Vital Signs x48h Temp Pulse Resp BP Pulse Ox O2 Flow Rate 11/04/22 22:00 106 H 38 H 127/78 97 2 11/04/22 21:40 100 30 H 1 11/04/22 21:30 103 H 31 H 118/79 95 2 11/04/22 21:00 107 H 32 H 130/83 H 94 2 11/04/22 20:35 97 26 H 1 11/04/22 20:30 104 H 28 H 123/64 92 2 11/04/22 20:27 107 H 23 111/73 92 2 11/04/22 20:02 104 H 22 125/78 90 L 11/04/22 20:00 88 L 11/04/22 19:30 105 H 27 H 125/73 91 L 11/04/22 19:24 105 H 32 H 148/83 H 96 11/04/22 18:58 36.4 C L 104 H 30 H 131/95 H 97 - Physical Exam General Appearance: positive: Mild distress Eyes Bilateral: positive: EOMI, No scleral icterus Respiratory: positive: Other (Access cart stethoscope not working; per ER Provider: decreased BS throughout) Cardiovascular: positive: Other (Access cart stethoscope not working; per ER Provider: RRR, no murmurs) Abdomen: positive: Other (per ER Provider: non-distended, NT, Soft) Extremities: positive: Other (moves all extrem, no edema) Neurologic/Psychiatric: positive: Oriented x3, CN's nml (2-12), Mood/affect nml Conclusion/Plan - Problem List (1) COPD with exacerbation Conclusion/Plan: Acute Respiratory Failure with Hypoxia COPD Exacerbation Severe COPD, on Prednisone 20 mg PO daily x 1 month, not on home O2 Tobacco use Shortness of Breath, acute on chronic Tachypnea Leukocytosis -EMS gave 1 g of IV Magnesium, DuoNeb treatments and 125 of IV Solu-Medrol -SpO2 88% RA, 96% 2L NC O2, HR 104, RR 30, T 36.4C, WBC 16. -CXR: RUL Nodule, COPD, NAD -Pt was given Duonebs, Ativan, and Azithromycin in the ER. -continue O2 support -continue SoluMedrol, Duonebs, Azithromycin; add Rocephin -continue home medications: Stiolto -tobacco cessation counseling. -suspect that pt needs Home O2 -SW consult to help pt; she needs PCP, Plodding Machine Operator and possibly home O2 on discharge Stage I [T1 N0 MX] right upper lobe Squamous Cell lung cancer -mgmt per Oncologist and Radiation Oncologist -pt's lung capacity is too low for surgery -radiatiotx scheduled to start soon. Hypothyroidism -continue home medications: Levothyroxine VTE Prophylaxis: Lovenox Code Status: D/W pt. She wants CPR, but to be DNI. I cannot find an order for partial code status in EMR. Set it for Full Code with RN communication order that she does not want intubation. Not sure how to make this more clear in orders. (I know this is not preferable, but it is what pt wants). ~Faith Gsos MD Hospitalist - Lab Results Fish Bones: 11/04/22 19:40 11/04/22 19:40
[2022-11-04] MEDS ORDERED: CYCLOBENZAPRINE 10 MG TABLET PO PRN (23:20)
[2022-11-04] MEDS ORDERED: HYDROcod/ACET 5/325 Prepack 4 PO PRN (23:20)
[2022-11-04] MEDS ORDERED: CLOTRIMAZOLE 10 MG LOZENGE MM PRN (23:20)
[2022-11-04] MEDS ORDERED: ONDANSETRON ODT 4 MG TABLET TL PRN (23:23)
[2022-11-04] MEDS ORDERED: ACETAMINOPHEN 325 MG TABLET PO PRN (23:23)
[2022-11-04] MEDS ORDERED: ONDANSETRON 4 MG/2 ML VIAL IVP PRN (23:23)
[2022-11-04] MEDS ORDERED: SODIUM CHLORIDE FLUSH 0.9% 10 ML SYRINGE IVP PRN (23:23)
[2022-11-04] MEDS ORDERED: cefTRIAXone 2 GM in SODIUM CHLORIDE 0.9% MINIBAG 100 ML IV SCH (23:28)
[2022-11-04] MEDS ORDERED: ALBUTEROL NEB 2.5 MG/3 ML INH PRN (23:29)
[2022-11-04] MEDS ORDERED: hydrOXYzine PAMOATE 25 MG CAPSULE PO PRN (23:30)
[2022-11-05] MEDS: IPRATROPIUM/ALBUTEROL 3 ML NEB INH SCH ×3 (00:48→12:24)
[2022-11-05] MEDS ORDERED: HYDROcod/ACETAM 5/325 MG TABLET PO PRN (01:03)
[2022-11-05] MEDS ORDERED: cefTRIAXone 2 GM in SODIUM CHLORIDE 0.9% MINIBAG 100 ML IV SCH (01:30)
[2022-11-05] MEDS: SODIUM CHLORIDE FLUSH 0.9% 10 ML SYRINGE IVP SCH ×2 (01:35→09:01)
[2022-11-05] MEDS ORDERED: FORMOTEROL FUMARATE NEB 20 MCG/2 ML INH SCH (08:00)
[2022-11-05] MEDS ORDERED: LEVOTHYROXINE 25 MCG TABLET PO SCH (08:00)
[2022-11-05 08:43] VITALS: BP 111/68
[2022-11-05] MEDS ORDERED: DIVALPROEX DR 250 MG TABLET PO SCH (09:00)
[2022-11-05] MEDS ORDERED: FLUTICASONE NASAL SPRAY NAS SCH (09:00)
[2022-11-05] MEDS ORDERED: ENOXAPARIN 40 MG/0.4 ML SYRINGE SUBQ SCH (09:00)
[2022-11-05] MEDS ORDERED: AZITHROMYCIN INJ 500 MG in SODIUM CHLORIDE 0.9% 250 ML IV SCH (09:00)
--- NOTE | 2022-11-05 11:34 | PHARMACY PROGRESS NOTE ---
- Best Possible Medication History Admit Date and Time: 11/04/22 9971 Processed by: Pharmacy Medication History completed: Yes Patient Interview: Completed Secondary Source(s): Pharmacy records, Insurance records As the person ultimately responsible for medication therapy, providers are able to order a medication from an existing home medication list in [facility] via the "Reconcile Routine" prior to Confirmation of that medication by decision support analyst. Such practice is discouraged except when the physician, in their clinical judgment, deems that a medical need exists for a medication without regard to previous use.
[2022-11-05] MEDS ORDERED: CLOTRIMAZOLE 10 MG LOZENGE MM PRN (11:44)
[2022-11-05] MEDS ORDERED: predniSONE 20 MG TABLET PO SCH (12:00)
[2022-11-05] MEDS ORDERED: NICOTINE 14 MG PATCH TOP SCH (12:00)
[2022-11-05] MEDS: IPRATROPIUM 0.2 MG/ML NEB INH SCH ×2 (12:24→13:24)
[2022-11-05] MEDS ORDERED: LORATADINE 10 MG TABLET PO SCH (21:00)
--- NOTE | 2022-11-07 07:44 | DISCHARGE SUMMARY ---
Discharge Summary Admit Date: 11/04/22 Discharge Date: 11/05/22 Discharging Provider: Kaycee Hadley MD Primary Care Provider: KEVAN Jj Code Status: Do Not Attempt Resuscitation Condition at Discharge: Fair Discharge Disposition: 07 Against Medical Advice - DIAGNOSES Discharge Diagnoses with Status of Each Condition: 1. Acute respiratory failure with hypoxia 2. COPD with exacerbation 3. Tobacco user 4. Squamous cell carcinoma of the lung - HPI History of Present Illness: 76 yo F with h/o severe COPD on Prednisone not on home O2, tobacco use, stage I [T1 N0 MX] right upper lobe Squamous Cell lung cancer, and Hypothyroidism presented to the ER with c/o 1 day h/o increased shortness of breath. Pt does not have a PCP or a Dielectric Testing Machine Operator. In September, she had increased shortness of breath and went to a walk-in clinic, where she was put on Prednisone and antibiotics. They found a nodule on CXR and she was referred to an Oncologist. She does not have enough lung capacity to handle surgery, so her treatment will be only radiation, starting next week. Pt has continued to have shortness of breath since September and has been continued on Prednisone 20 mg daily via the walk-in clinic and her Oncologist. She has also had a cough x 1 month with occasional white sputum. Today, she had a sudden onset of increased shortness of breath and work of breathing. No CP, F/C, N/V, swelling of ankles. Her steroid MDI and rescue MDI were not helping much. She is living in an out-dated manufactured home in the [facility] that she has not been well enough to take care of and it needs a lot of work. She thinks the dust from her home + spending time outside in the cold has contributed towards her symptoms. Pt called EMS this AM, received a neb treatment, but thought she could manage at home. She had increase d shortness of breath throughout the day, as well as urinary and stool incontinence with cough, so called EMS back. EMS gave her 1 g of IV Magnesium, DuoNeb treatments and 125 of IV Solu-Medrol. Pt does continue to smoke cigarettes, about 10 cigarettes/day. In the ER, SpO2 88% RA, 96% 2L NC O2, 131/95, HR 104, RR 30, T 36.4C, WBC 16. CXR: RUL Nodule, COPD, NAD Pt was given Duonebs, Ativan, and Azithromycin in the ER. - Past Medical History Respiratory: reports: COPD Endocrine/Autoimmune: reports: HyPOthyroidism MRSA Hx?: No Other Past Medical History: lung cancer - Past Surgical History General: reports: Appendectomy - HOSPITAL COURSE Hospital Course: The patient stayed for less than 18 hours. She was admitted a COPD exacerbation in the face of a current diagnosis for lung cancer. She is about to start treatment. But she abruptly decided she did not want to stay anymore. It had to do with finances, foster dogs, and nicotine withdrawal. Even though I offered her nicotine patches, Ativan, and try to coax her to stay at least 1 more day, she just would not have any of it. At discharge she was tachypneic, short of breath. Sometimes tripoding and pursed lip breathing. Sometimes able to sit up and walk in the room. Temperature was 36.6. Heart rate 91. Blood pressure 111/68. She is requiring 2 L nasal cannula to saturate at 96%. Respiration 19. I did send her home on her usual medications. I did offer antibiotics but she just wanted to leave. - ALLERGIES Allergies/Adverse Reactions: Allergies Allergy/AdvReac Type Severity Reaction Status Date / Time Barbiturates Allergy Unknown Verified 05/06/19 16:31 - MEDICATIONS Home Medications: Ambulatory Orders Medication Instructions Recorded Confirmed Albuterol Sulf [Ventolin Hfa 1 - 2 puffs INH Q4HR PRN 05/06/19 11/05/22 Inhaler] Ciclesonide [Alvesco] 1 puffs IH BID 05/06/19 11/05/22 Ipratropium/Albuterol [Duoneb] 3 ml INH TID 05/06/19 11/05/22 Levothyroxine [Synthroid] 50 mcg PO QDAC 05/06/19 11/05/22 Divalproex Sodium [Depakote] 500 mg PO BID 09/13/22 11/05/22 Tiotropium Br/Olodaterol HCl 1 puffs IH BID 09/13/22 11/05/22 [Stiolto Respimat Inhal [place]] predniSONE [Prednisone 21-TAB dose 20 mg PO DAILY 7 Days #14 tab 11/01/22 11/05/22 pack] Clotrimazole Umer [Clotrimazole] 10 mg MM 5XD PRN 11/05/22 11/05/22 Fexofenadine HCl 180 mg PO QPM 11/05/22 11/05/22 - LABS Result Diagrams: 11/04/22 19:40 11/04/22 19:40
--- NOTE | 2022-11-07 08:00 | ADVANCE CARE PLANNING NOTE ---
Advance Care Planning - Planning Encounter Date: 11/05/22 Time: 09:00 Purpose: esstablish care goals Parties in Attendance: , patient, hospitalist Decisional Capacity of the Patient: She is alert, oriented. is at the bedside and states that she does make her own decisions - Diagnosis for Encounter (1) COPD with exacerbation Summary: Admitted for COPD with exacerbation. Has bipolar disorder. - Encounter Subjective/Patient's Story: She says that she lives with her . And she still smokes. She is very defensive about that and says "are you going to tell me to stop too?". She does not have a doctor because she really does not like doctors. So when she needs when she just goes to the walk-in clinic. She has been getting more more short of breath. And she went to the walk-in clinic in September where a chest x-ray showed her to have a lung nodule. The lung nodule is cancer. She continues to have shortness of breath, continues to have cough, with gradually decreasing ability to ambulate because of the shortness of breath. But she is not on home oxygen yet. She finally came back in again to the emergency room when she just could not breathe anymore. But she wants to make clear that she has issues that make it difficult for her to come to the hospital. 1 is financial. She has a share of cost and she quotes that at $350 a month. She just cannot afford that. So anything that clinic come out of this hospitalization she is worried about. She also has 2 foster dogs that she loves and thinks that they are more important than any of this stuff. And she wants to make sure she can take care of them. She is also going through tobacco withdrawal and really just needs to get home so she can smoke. I took all that into account but I wanted to ask her to make sure what her goals of care were in view of the fact that she is saying she wants to leave AMA for the above issues. As such I spent 30 minutes with her and her going over a POLST form. I wanted to make sure that her goals of care were being met. She does want treatment for lung cancer, she does want the options of coming back to the hospital when she needs it. She just knows that she does not want to be on life support. Does not want to be intubated. But she also does not want to stay here right now. She was very suspicious about signing the POLST form. She felt that in signing the POLST form she was signing away her rights for "something". I reassured her and her that this is strictly a goals of care conversation for me to document what she wants out of us and not to make her stay or leave. The decision to stay or leave was up to her. Objective/Medical Story: 76 yo F with h/o severe COPD on Prednisone not on home O2, tobacco use, stage I [T1 N0 MX] right upper lobe Squamous Cell lung cancer, and Hypothyroidism presented to the ER with c/o 1 day h/o increased shortness of breath. Pt does not have a PCP or a [employer] Consultant. In September, she had increased shortness of breath and went to a walk-in clinic, where she was put on Prednisone and antibiotics. They found a nodule on CXR and she was referred to an Oncologist. She does not have enough lung capacity to handle surgery, so her treatment will be only radiation, starting next week. Pt has continued to have shortness of breath since September and has been continued on Prednisone 20 mg daily via the walk-in clinic and her Oncologist. She has also had a cough x 1 month with occasional white sputum. Today, she had a sudden onset of increased shortness of breath and work of breathing. No CP, F/C, N/V, swelling of ankles. Her steroid MDI and rescue MDI were not helping much. She is living in an out-dated manufactured home in the [facility] that she has not been well enough to take care of and it needs a lot of work. She thinks the dust from her home + spending time outside in the cold has contributed towards her symptoms. Pt called EMS this AM, received a neb treatment, but thought she could manage at home. She had increased shortness of breath throughout the day, as well as urinary and stool incontinence with cough, so called EMS back. EMS gave her 1 g of IV Magnesium, DuoNeb treatments and 125 of IV Solu-Medrol. Pt does continue to smoke cigarettes, about 10 cigarettes/day. In the ER, SpO2 88% RA, 96% 2L NC O2, 131/95, HR 104, RR 30, T 36.4C, WBC 16. CXR: RUL Nodule, COPD, NAD Pt was given Duonebs, Ativan, and Azithromycin in the ER. History - Past Medical History Respiratory: reports: COPD Endocrine/Autoimmune: reports: HyPOthyroidism MRSA Hx?: No Other Past Medical History: lung cancer - Past Surgical History General: reports: Appendectomy Goals of Care: While she still wants treatment for her cancer, she just does not want to be in the hospital even if it is with COPD exacerbation and pneumonia. Plan: POLST form delineated. Filled out. Original given to her and a copy given to [facility] for scanning Code Status: Do Not Attempt Resuscitation Time spent on advance care plannin minutes
== END 2022-11-05 13:40 | disposition left against medical advice (07) | DRG 189 ==
LOC: EDUNIT# → ED 18:49 → MS3 23:23
PROVIDERS: ADMIT Internal Medicine; ATTEND Specialist
DX: J96.01 Acute respiratory failure with hypoxia (principal); R09.02 Hypoxemia; Z20.822 Contact with and (suspected) exposure to COVID-19; C34.90 Malignant neoplasm of unspecified part of unspecified bronchus or lung; F17.213 Nicotine dependence, cigarettes, with withdrawal; R00.0 Tachycardia, unspecified; C34.11 Malignant neoplasm of upper lobe, right bronchus or lung; F17.210 Nicotine dependence, cigarettes, uncomplicated; J43.9 Emphysema, unspecified; E03.9 Hypothyroidism, unspecified; Z53.29 Procedure and treatment not carried out because of patient's decision for other reasons; R15.9 Full incontinence of feces; R32 Unspecified urinary incontinence; Z79.52 Long term (current) use of systemic steroids; D72.829 Elevated white blood cell count, unspecified; F31.9 Bipolar disorder, unspecified
CPT/HCPCS: 36415; 71045; 80053; 82803; 83880; 85025; 85379; 87633; 93005; 94640; 96365; 96375; 99285; A9270; J1650; J2060; J7512

== ENCOUNTER 2023-04-13 13:21 | Outpatient (CLI) | payer MEDICARE ==
--- NOTE | 2023-04-13 15:02 | CT Report ---
PROCEDURE: CHEST WO INDICATIONS: LUNG CA TECHNIQUE: Noncontrast 1mm axial images were acquired from the pulmonary apices to the posterior costophrenic an gles. Axial 5 mm soft tissue kernel reconstructions were performed as well as 8 mm axial MIP and cor onal and sagittal 5 mm reformations. For radiation dose reduction, the following was used: automate d exposure control, adjustment of mA and/or kV according to patient size. COMPARISON: 08/25/2022 FINDINGS: Image quality: Good Lungs and pleura:Emphysema. Right upper lobe spiculated nodule is slightly decreased, measuring 1.9 x 1.8 cm, previously 2.9 x 2.5 cm. There is adjacent pleural tenting and thickening again seen. No new or enlarging nodules elsewhere. Scattered scarring and atelectasis. Micronodules/granulomas ag ain seen. Mediastinum, heart, and esophagus: Patulous nonspecific appearance of the esophagus. There are love ry and annular calcification of the heart. Overall normal heart size. No pathologic lymph nodes by si ze criteria on this limited noncontrast study. Chest wall and thyroid: Unremarkable Upper abdomen: Suspected renal cysts are present. No gross abnormality on these noncontrast images. T here are atherosclerotic calcifications. Bones: Degenerative changes, no acute or suspicious finding. IMPRESSION: Slightly decreased size of the spiculated right upper lobe lung nodule. Adjacent pleural thickening a gain seen. Reviewed by: Romario Gutierrez MD on 04/13/2023 3:01 PM PDT Approved by: Romario Gutierrez MD on 04/13/2023 3:01 PM PDT Station ID: [id number]
== END 2023-04-13 13:22 | disposition home or self-care (01) ==
LOC: DI 13:21
PROVIDERS: ATTEND Radiology Radiation Oncology
DX: C34.11 Malignant neoplasm of upper lobe, right bronchus or lung (principal)

== ENCOUNTER → 2023-08-15 | Outpatient (CLI) | payer MEDICARE | LOC: LAB.S 08:00 | PROVIDERS: ATTEND Emergency Medicine | DX: R06.02 Shortness of breath (principal) ==

== ENCOUNTER 2023-09-28 06:54 | Outpatient (CLI) | payer MEDICARE | END 2023-09-28 23:59 | disposition left against medical advice (07) | LOC: EMS 06:54 | DX: R06.02 Shortness of breath (principal) ==

== ENCOUNTER 2023-09-28 08:48 | Outpatient (CLI) | payer MEDICARE | END 2023-09-28 08:49 | disposition EMS.NT | LOC: EMS 08:48 | DX: Z03.89 Encounter for observation for other suspected diseases and conditions ruled out (principal) ==

== ENCOUNTER 2024-11-22 22:06 | Inpatient (IN) ==
[2024-11-22] MEDS ORDERED: ETOMIDATE 40 MG/20 ML VIAL IVP ONE (22:11)
[2024-11-22] MEDS ORDERED: SUCCINYLCHOLINE 200 MG/10 ML VIAL ONE (22:12)
[2024-11-22] MEDS: ETOMIDATE 40 MG/20 ML VIAL IVP STA (22:16)
[2024-11-22] MEDS: SUCCINYLCHOLINE 200 MG/10 ML VIAL IVP STA (22:17)
[2024-11-22] MEDS ORDERED: PROPOFOL 1000 MG/100 ML 1,000 MG/100 ML BOTTLE IV ONE (22:22)
[2024-11-22] MEDS: PROPOFOL 1000 MG/100 ML 1,000 MG/100 ML BOTTLE IV STA (22:28)
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
[2024-11-22 22:41] LABS: BASOPHILS # (AUTO) 0.1 10^3/uL (0.0-0.1); BASOPHILS % (AUTO) 0.4 %; EOSINOPHILS % (AUTO) 0.1 %; HCT - HEMATOCRIT 44.3 % (37.0-47.0); HGB - HEMOGLOBIN 14.5 g/dL (12.0-16.0); LYMPHOCYTES # (AUTO) 1.7 10^3/uL (1.5-3.5); LYMPHOCYTES % (AUTO) 9.2 %; MEAN CORPUSCULAR HEMOGLOBIN 29.8 pg (27.0-31.0); MEAN CORPUSCULAR HGB CONC 32.7 g/dL (32.0-36.0); MEAN CORPUSCULAR VOLUME 91.2 fL (81.0-99.0); MEAN PLATELET VOLUME 11.7 fL (7.9-10.8); MONOCYTES # (AUTO) 0.8 10^3/uL (0.0-1.0); MONOCYTES % (AUTO) 4.5 %; NEUTROPHILS # (AUTO) 15.4 10^3/uL (1.5-6.6); NEUTROPHILS % (AUTO) 84.7 %; PLT - PLATELET COUNT 230 10^3/uL (130-450); RED BLOOD COUNT 4.86 10^6/uL (4.20-5.40); RED CELL DISTRIBUTION WIDTH 13.2 % (12.0-15.0); WHITE BLOOD COUNT 18.2 x10^3/uL (4.8-10.8)
[2024-11-22 22:43] LABS: VBG BASE EXCESS 10.6 mmol/L (-2 - +2); VBG PO2 60.3 mmHg (25-47); VBG TOTAL CO2 36.5 mmol/L (24-29)
--- NOTE | 2024-11-22 22:51 | XRAY Report ---
PROCEDURE: XR Chest 1V INDICATIONS: soa resp destress TECHNIQUE: One view of the chest was acquired. COMPARISON: CT chest dated 07/16/2024 and 04/13/2023. FINDINGS: Surgical changes and devices: ET tube tip is approximately 3.2 cm above the candelario. NG tube tip is b elow the left hemidiaphragm and is in the expected location of stomach lumen.. Lungs and pleura: Ill-defined airspace opacity in right upper lung field is seen grossly unchanged fr om prior studies and is consistent with patient's clinical diagnosis of right upper lobe mass. No new area of airspace consolidations. No pleural effusion or pneumothorax. Mediastinum: Mediastinal contours appear normal. Heart size is normal. Bones and chest wall: No suspicious bony lesions. Overlying soft tissues appear unremarkable. IMPRESSION: 1. Ill-defined airspace opacity in right upper lung field consistent with patient's known right upper lobe mass. No definite focal infiltrate. No pleural effusion or pneumothorax. 2. ET tube and NG tube are in satisfactory position. Reviewed by: Hugo Wiley MD on 11/22/2024 10:50 PM PDT Approved by: Hugo Wiley MD on 11/22/2024 10:50 PM PDT Station ID: [id number]
[2024-11-22 22:52] LABS: ALBUMIN 3.6 g/dL (3.2-5.5); BILIRUBIN,TOTAL 0.5 mg/dL (0.2-1.0); CALCIUM 8.8 mg/dL (8.5-10.3); MAGNESIUM 1.9 mg/dL (1.7-2.3); POTASSIUM 3.7 mmol/L (3.5-4.5)
[2024-11-22] MEDS: fentaNYL 100 MCG/2 ML VIAL IVP STA (22:55)
[2024-11-22 22:58] LABS: ALBUMIN/GLOBULIN RATIO 1.5 (1.0-2.2); CREATININE 0.6 mg/dL (0.6-1.3)
[2024-11-22] MEDS: SODIUM CHLORIDE 0.9% 1,000 ML IV STA (23:03)
[2024-11-22 23:16] LABS: ABG BASE EXCESS 8.4 mmol/L (-2.0-3.0); ABG HCO3 32.3 mmol/L (22.0-26.0); ABG OXYGEN SATURATION 100 % (95-98); ABG PCO2 44 mmHg (34-45); ABG PH 7.47 (7.35-7.45); ABG PO2 497 mmHg (83-108); ABG TCO2 33.6 mmol/L (21.0-29.0); ALLEN TEST POSITIVE
[2024-11-22 23:17] LABS: ABG MODE OF VENTILATION ASSIST/CONTROL; ABG RESPIRATORY RATE 16 b/min
--- OUTSIDE RECORDS SUMMARY | 2024-11-22 23:17 | EXTERNAL MEDICAL SUMMARY RPT | Continuity of Care Document ---
Author Organization [facility] Address [address] [place] [id number] Phone Problems date description facility 2024-08-14 13:56 Malignant neoplasm o f upper lobe, right bronchus or lung [facility] 2024-08-14 13:56 Nicotine dependence, unspecifie d, uncomplicated [facility] 2024-08-14 13:56 Centrilobular emphysema [facility] 2024-08-14 13:56 Chronic obstructive pulmonary d isease, unspecified [facility] 2024-09-05 07:05 Hypothyroidism, unspecified i [employer] [facility] 2024-09-05 07:05 Chronic obstructive pulmonary d isease, unspecified [facility] 2024-09-05 07:14 Hypothyroidism, unspecified [facility] 2024-09-05 07:14 Chronic obstructive pulmonary d isease, unspecified [facility] 2024-09-24 09:59 Hypothyroidism, unspecified [facility] [employer] ([facility] 2024-09-24 09:59 Chronic obstructive pulmonary d isease, unspecified [facility] 2024-09-24 10:12 Hypothyroidism, unspecified i [employer] ([facility] 2024-09-24 10:12 Chronic obstructive pulmonary d isease, unspecified [facility] 2024-10-15 09:46 Hypothyroidism, unspecified i [employer] ([facility] 2024-10-15 09:46 Chronic obstructive pulmonary d isease, unspecified [facility] 2024-10-15 10:49 Malignant neoplasm o f upper lobe, right bronchus or lung [facility] 2024-10-15 10:49 Nicotine dependence, unspecifie d, uncomplicated [facility] 2024-10-15 10:49 Centrilobular emphysema [facility] 2024-10-15 10:49 Chronic obstructive pulmonary d isease, unspecified [facility] 2024-10-15 12:08 Hypothyroidism, unspecified i [employer] ([facility] 2024-10-15 12:08 Chronic obstructive pulmonary d isease, unspecified [employer] 2024-10-26 02:54 Malignant neoplasm o f upper lobe, right bronchus or lung [facility] 2024-10-26 02:54 Nicotine dependence, unspecifie d, uncomplicated [facility] 2024-10-26 02:54 Centrilobular emphysema [facility] 2024-10-26 02:54 Chronic obstructive pulmonary d isease, unspecified [employer] 2024-11-19 08:41 Hypothyroidism, unspecified [facility] 2024-11-19 08:41 Chronic obstructive pulmonary d isease, unspecified [employer] 2024-11-20 06:25 Hypothyroidism, unspecified i [employer] ([facility]) 2024-11-20 06:25 Chronic obstructive pulmonary d isease, unspecified [facility] Results/Labs test date facility value unit notes Result panel 1 NUCLEATED RED BLOOD CELLS AUTO 2024-11-22 22:33 [facility] 0.0 /100wbc (missing) EOSINOPHILS # (AUTO) 2024-11-22 22:33 [facility] 0.0 10 3/ul (missing) NRBC ABSOLUTE COUNT (AUTO) 2024-11-22 22:33 [facility] 0.00 x10 3/ul (missing) BASOPHILS # (AUTO) 2024-11-22 22:33 [facility] 0.1 10 3/ul (missing) BILIRUBIN,TOTAL 2024-11-22 22:33 [facility] 0.5 mg /dl As of February 2023 testing method has changed, this may include reference ranges. CREATININE 2024-11-22 22:33 [facility] 0.6 mg/dl As of February 2023 testing method has changed, this may include reference ranges. MONOCYTES # (AUTO) 2024-11-22 22:33 [facility] 0.8 10 3/ul (missing) ALBUMIN/GLOBULIN RATIO 2024-11-22 22:33 [facility] 1.5 (missing) (missing) LYMPHOCYTES # (AUTO) 2024-11-22 22:33 [facility] 1.7 10 3/ul (missing) MAGNESIUM 2024-11-22 22:33 [facility] 1.9 mg/dl Slightly Hemolyzed: Results may be affected. As of February 2023 testing method has changed, this may include reference ranges. VBG BASE EXCESS 2024-11-22 22:33 [facility] 10.6 mm ol/l (missing) GLUCOSE 2024-11-22 22:33 [facility] 106 mg/dl As of February 2023 testing method has changed, this may include reference ranges. MEAN PLATELET VOLUME 2024-11-22 22:33 [facility] 11.7 fl (missing) BUN - BLOOD UREA NITROGEN 2024-11-22 22:33 [facility] 12 mg/dl As of Feb testing method has changed, this may include reference ranges. RED CELL DISTRIBUTION WIDTH 2024-11-22 22:33 [facility] 13.2 % (missing) SODIUM 2024-11-22:33 [facility] 134 mmol/l As of February 2023 testing method has changed, this may include reference ranges. HGB - HEMOGLOBIN 2024-11-22 22:33 [facility] 14.5 g /dl (missing) NEUTROPHILS # (AUTO) 2024-11-22 22:33 [facility] 15.4 10 3/ul (missing) WHITE BLOOD COUNT 2024-11-22 22:33 [facility] 18.2 x10 3/ul (missing) AST ASPARTATE AMINOTRANSFERASE 2024-11-22 22:33 [facility] 19 iu/l Sligh tly Hemolyzed: Results may be affected. As of February 2023 testing method has changed, this may include reference ranges. GLOBULIN 2024-11-22 22:33 [facility] 2.4 g/dl (missing) PLT - PLATELET COUNT 2024-11-22 22:33 [facility] 230 10 3/ul (missing) MEAN CORPUSCULAR HEMOGLOBIN 2024-11-22 22:33 [facility] 29.8 pg (missing) ALBUMIN 2024-11-22 22:33 [facility] 3.6 g/dl As of February 2023 testing method has changed, this may include reference ranges. POTASSIUM 2024-11-22:33 [facility] 3.7 mmol/l Slightly Hemolyzed: Results may be affected. As of February 2023 testing method has changed, this may include reference ranges. CARBON DIOXIDE - CO2 2024-11-22 22:33 [facility] 31 mmol/l As of February 2023 testing method has changed, this may include reference ranges. MEAN CORPUSCULAR HGB CONC 2024-11-22 22:33 [facility] 32.7 g/dl (missing) VBG HCO3 2024-11-22 22:33 [facility] 34.9 mmol/l (missing) VBG TOTAL CO2 2024-11-22 22:33 [facility] 36.5 mmol /l (missing) RED BLOOD COUNT 2024-11-22 22:33 [facility] 4.86 10 6/ul (missing) HCT - HEMATOCRIT 2024-11-22 22:33 [facility] 44.3 % (missing) ALKALINE PHOSPHATASE 2024-11-22 22:33 [facility] 46 iu/l As of February 2023 testing method has changed, this may include reference ranges. VBG PCO2 2024-11-22 22:33 [facility] 51.0 mmhg (missing) TOTAL PROTEIN 2024-11-22 22:33 [facility] 6.0 g/dl As of February 2023 testing method has changed, this may include reference ranges. VBG PO2 2024-11-22 22:33 [facility] 60.3 mmhg (missing) ANION GAP 2024-11-22 22:33 [facility] 7.0 (missing ) (missing) VBG PH 2024-11-22 22:33 [facility] 7.440 (missing ) (missing) ALT ALANINE AMINOTRANSFERASE 2024-11-22 22:33 [facility] 8 iu/l As of February 2023 testing method has changed, this may include reference ranges. CALCIUM 2024-11-22 22:33 [facility] 8.8 mg/dl As of February 2023 testing method has changed, this may include reference ranges. VBG OXYGEN SATURATION 2024-11-22 22:33 [facility] 88.0 % (missing) MEAN CORPUSCULAR VOLUME 2024-11-22 22:33 [facility] 91.2 fl (missing) CHLORIDE 2024-11-22 22:33 [facility] 96 mmol/l As of February 2023 testing method has changed, this may include reference ranges. GFR - MDRD 2024-11-22 22:33 [facility] 97 (gurwinder lopez) Social History date description facility
[2024-11-22 23:36] LABS: TROPONIN I HIGH SENSITIVITY 17.1 ng/L (2.3-14.8)
[2024-11-22] MEDS ORDERED: iohexoL-300 100 ML VIAL ONE (23:41)
[2024-11-22] MEDS: MIDAZOLAM DRIP 50 MG/50 ML 50 MG/50 ML BAG IV SCH (23:48)
[2024-11-23] MEDS: iohexoL-300 100 ML VIAL IVP ONE (00:34)
[2024-11-23] MEDS: cefTRIAXone 1 GM VIAL IVP STA (00:38)
[2024-11-23] MEDS: AZITHROMYCIN INJ 500 MG in SODIUM CHLORIDE 0.9% 250 ML IV STA (00:39)
--- NOTE | 2024-11-23 00:53 | CT Report ---
PROCEDURE: CT Head WO INDICATIONS: AMS TECHNIQUE: Noncontrast 4.5 mm thick angled axial sections acquired from the foramen magnum to the vertex. For r adiation dose reduction, the following was used: automated exposure control, adjustment of mA and/or kV according to patient size. COMPARISON: None FINDINGS: Image quality: Excellent. CSF spaces: Basal cisterns are patent. No extra-axial fluid collections. The ventricles are symmet alan in size and shape. Brain: No intracranial bleeds or masses. There is cerebral volume loss for age, with resultant vent ricular and sulcal prominence. There are periventricular and deep white matter chronic small vessel ischemic changes. There is intracranial internal carotid artery atherosclerosis. Skull and face: Calvarium and visualized facial bones appear intact, without suspicious lesions. Sinuses: Visualized sinuses and mastoids are clear. IMPRESSION: No acute intracranial pathology. Reviewed by: Hugo Wiley MD on 11/23/2024 12:51 AM PDT Approved by: Hugo Wiley MD on 11/23/2024 12:51 AM PDT Station ID: [id number]
--- NOTE | 2024-11-23 01:00 | CT Report ---
PROCEDURE: CT Angio Chest INDICATIONS: Rule out PE CONTRAST: 100cc [id number] TECHNIQUE: After the administration of intravenous contrast, 2 mm axial images were acquired from the pulmonary apices to the posterior costophrenic angles during the arterial phase. In addition, 1 mm lung kernel and 5 mm soft tissue kernel reconstructions were performed. 3-dimensional coronal oblique maximum int ensity projection (MIP) reformats, 8 mm axial MIP, and 5 mm coronal and sagittal MPR reformats were t hen performed through the thorax. For radiation dose reduction, the following was used: automated exp osure control, adjustment of mA and/or kV according to patient size. COMPARISON: At bedtime dated 07/16/2024 and 04/13/2023.. FINDINGS: Image quality: Excellent. Large vessels: No filling defects within the opacified pulmonary arteries, accounting for motion and contrast timing. No evidence of acute aortic syndrome or aortic aneurysm. Lungs and pleura: Moderate centrilobular emphysema. Masslike consolidation with spiculated margin in right upper lobe is seen now measures up to 1.9 x 1.7 cm in size series 11 image 71, previously measu res 1.8 x 1.6 cm in size. Associated adjacent airspace consolidation in right upper lobe is also seen . No new suspicious pulmonary nodule or mass is noted. Dependent atelectasis in posterior aspect of b ilateral lower lobes are seen. Mediastinum: Heart size is normal. No pericardial effusion. No large vessel abnormality. No mediastin al adenopathy by size criteria. Patient is intubated, ET tube tip is above the candelario. NG tube tip i s in the stomach. Chest wall and lower neck: Thyroid is unremarkable. No axillary or supraclavicular adenopathy by size . Bones: No aggressive osseous abnormality. Upper Abdomen: Please correlate with CT of abdomen and pelvis study from the same day. IMPRESSION: 1. No pulmonary embolus. No thoracic aortic aneurysm or gross dissection. 2. Masslike consolidation with spiculated margin seen in right upper lobe with a central solid compon ent not significantly changed in size compared to previous study. No new suspicious pulmonary nodule. Moderate centrilobular emphysema. No pleural effusion or pneumothorax. 3. No gross mediastinal or hilar lymphadenopathy. Reviewed by: Hugo Wiley MD on 11/23/2024 12:59 AM PDT Approved by: Hugo Wiley MD on 11/23/2024 12:59 AM PDT Station ID: [id number]
--- NOTE | 2024-11-23 01:03 | CT Report ---
PROCEDURE: CT Abdomen/Pelvis W INDICATIONS: AMS CONTRAST: 100cc [id number] TECHNIQUE: After the administration of intravenous contrast, a CT scan of the abdomen and pelvis was performed. Images were recorded and evaluated at appropriate window settings. Reformats: coronal and sagittal. F or radiation dose reduction, the following was used: automated exposure control, adjustment of mA and /or kV according to patient size. COMPARISON: None. FINDINGS: Image quality: Diagnostic. Lower chest: Please refer to CT angiogram of chest findings. Liver: No solid mass. Gallbladder: No radiopaque stones or wall thickening. Biliary tree: No intrahepatic or extrahepatic dilation, accounting for age. Spleen: No splenomegaly. Pancreas: No pancreatic ductal dilation. Adrenals: No adrenal nodule. Kidneys and ureters: No hydronephrosis. Right renal cortical thinning is seen suggestive of scarring secondary to prior injury/infection. No renal cystic lesion which requires follow up. No solid mass. Stomach, bowel and peritoneum: No gastric or small bowel dilation. No abnormal wall thickening. No pa thologic free fluid. Colonic diverticulosis without CT evidence of acute diverticulitis. No peritonea l free air. No abscess collection. Lymph nodes: No central or retroperitoneal adenopathy. Vessels: No infrarenal aortic aneurysm. Patent portal vein. PELVIS Reproductive organs: Unremarkable. Bladder: No abnormal wall thickening. Pelvic lymph nodes: No pelvic adenopathy by size criteria. Bones: No aggressive osseous abnormality. Other: No significant ventral or inguinal hernia. IMPRESSION: 1. No acute inflammatory process is seen in abdomen or pelvis. No free fluid of free air. Colonic div erticulosis without CT evidence of acute diverticulitis. 2. Nonobstructing renal stones or hydronephrosis. Right renal cortical thinning suggestive of prior i nfection/injury. Reviewed by: Hugo Wiley MD on 11/23/2024 1:01 AM PDT Approved by: Hugo Wiley MD on 11/23/2024 1:01 AM PDT Station ID: [id number]
[2024-11-23] MEDS ORDERED: ALBUTEROL NEB 2.5 MG/3 ML INH ONE (01:39)
[2024-11-23] MEDS: ALBUTEROL NEB 2.5 MG/3 ML INH STA (01:45)
[2024-11-23 02:21] LABS: B. PARAPERTUSSIS- RESP PCR PAN NOT DETECTED; B. PERTUSSIS- RESP PCR PANEL NOT DETECTED; C. PNEUMONIAE- RESP PCR PANEL NOT DETECTED; CORONAVIRUS 229E-RESP PCR NOT DETECTED; CORONAVIRUS HKU1-RESP PCR NOT DETECTED; CORONAVIRUS NL63-RESP PCR NOT DETECTED; CORONAVIRUS OC43-RESP PCR NOT DETECTED; HUMAN METAPNEUMOVIRUS NOT DETECTED; INFLUENZA A- RESP PCR PANEL NOT DETECTED; INFLUENZA B - RESP PCR PANEL NOT DETECTED; M. PNEUMONIAE- RESP PCR PANEL NOT DETECTED; PARAINFLUENZA VIRUS 1 DETECTED; PARAINFLUENZA VIRUS 2 NOT DETECTED; PARAINFLUENZA VIRUS 4 NOT DETECTED; RHINOVIRUS/ENTEROVIRUS NOT DETECTED; RSV- RESP PCR PANEL NOT DETECTED; SARS-CoV-2 -RESP PCR PANEL NOT DETECTED
[2024-11-23] MEDS ORDERED: ONDANSETRON 4 MG/2 ML VIAL IVP PRN (03:14)
--- OUTSIDE RECORDS SUMMARY | 2024-11-23 03:24 | EXTERNAL MEDICAL SUMMARY RPT | Continuity of Care Document ---
Author Organization [facility] Address [address] [place] [id number] Phone Problems date description facility 2024-08-14 13:56 Malignant neoplasm o f upper lobe, right bronchus or lung [facility] 2024-08-14 13:56 Nicotine dependence, unspecifie d, uncomplicated [facility] 2024-08-14 13:56 Centrilobular emphysema [facility] 2024-08-14 13:56 Chronic obstructive pulmonary d isease, unspecified [facility] 2024-09-05 07:05 Hypothyroidism, unspecified i [facility] 2024-09-05 07:05 Chronic obstructive pulmonary d isease, unspecified [facility] 2024-09-05 07:14 Hypothyroidism, unspecified [facility] 2024-09-05 07:14 Chronic obstructive pulmonary d isease, unspecified [facility] 2024-09-24 09:59 Hypothyroidism, unspecified [facility] 2024-09-24 09:59 Chronic obstructive pulmonary d isease, unspecified [facility] 2024-09-24 10:12 Hypothyroidism, unspecified [facility] 2024-09-24 10:12 Chronic obstructive pulmonary d isease, unspecified [facility] 2024-10-15 09:46 Hypothyroidism, unspecified [facility] [employer] 2024-10-15 09:46 Chronic obstructive pulmonary d isease, unspecified [facility] 2024-10-15 10:49 Malignant neoplasm o f upper lobe, right bronchus or lung [facility] 2024-10-15 10:49 Nicotine dependence, unspecifie d, uncomplicated [facility] 2024-10-15 10:49 Centrilobular emphysema [facility] 2024-10-15 10:49 Chronic obstructive pulmonary d isease, unspecified [facility] 2024-10-15 12:08 Hypothyroidism, unspecified i [facility] 2024-10-15 12:08 Chronic obstructive pulmonary d isease, unspecified [facility] 2024-10-26 02:54 Malignant neoplasm o f upper lobe, [facility] bronchus [facility] 2024-10-26 02:54 Nicotine dependence, unspecifie d, uncomplicated [facility] 2024-10-26 02:54 [facility]rilobular emphysema [facility] 2024-10-26 02:54 Chronic obstructive pulmonary d isease, unspecified [employer] 2024-11-19 08:41 Hypothyroidism, unspecified [facility] 2024-11-19 08:41 Chronic obstructive pulmonary d isease, unspecified [employer] 2024-11-20 06:25 Hypothyroidism, unspecified [facility] [employer] 2024-11-20 06:25 Chronic obstructive pulmonary d isease, unspecified [facility] Results/Labs test date facility value unit notes Result panel 1 NUCLEATED RED BLOOD CELLS AUTO 2024-11-22 22:33 [facility] 0.0 /100wbc (missing) EOSINOPHILS # (AUTO) 2024-11-22 22:33 [facility] 0.0 10 3/ul (missing) NRBC ABSOLUTE COUNT (AUTO) 2024-11-22 22:33 [facility] 0.00 x10 3/ul (missing) BASOPHILS # (AUTO) 2024-11-22 22:33 [facility] 0.1 10 3/ul (missing) BILIRUBIN,TOTAL 2024-11-22 22:33 [facility] 0.5 mg/dl As of February 2023 testing method has changed, this may include reference ranges. CREATININE 2024-11-22 22:33 [facility] 0.6 mg/dl As of February 2023 testing method has changed, this may include reference ranges. MONOCYTES # (AUTO) 2024-11-22 22:33 [facility] 0.8 10 3/ul (missing) ALBUMIN/GLOBULIN RATIO 2024-11-22 22:33 [facility] 1.5 (missing) (missing) LYMPHOCYTES # (AUTO) 2024-11-22 22:33 [facility] 1.7 10 3/ul (missing) MAGNESIUM 2024-11-22 22:33 [facility] 1.9 mg/dl Slightly Hemolyzed: Results may be affected. As of February 2023 testing method has changed, this may include reference ranges. VBG BASE EXCESS 2024-11-22 22:33 [facility] 10.6 mmol/l (missing) GLUCOSE 2024-11-22 22:33 [facility] 106 mg/dl As of February 2023 testing method has changed, this may include reference ranges. MEAN PLATELET VOLUME 2024-11-22 22:33 [facility] 11.7 fl (missing) BNP - B-NATRIURETIC PEPTIDE 2024-11-22 22:33 [facility] 113 pg/ml (missing) BUN - BLOOD UREA NITROGEN 2024-11-22 22:33 [facility] 12 mg/dl As of February 2023 testing method has changed, this may include reference ranges. RED CELL DISTRIBUTION WIDTH 2024-11-22 22:33 [facility] 13.2 % (missing) SODIUM 2024-11-22 22:33 [facility] 134 mmol/l As of February 2023 testing method has changed, this may include reference ranges. HGB - HEMOGLOBIN 2024-11-22 22:33 [facility] 14.5 g/dl (missing) NEUTROPHILS # (AUTO) 2024-11-22 22:33 [facility] 15.4 10 3/ul (missing) TROPONIN I HIGH SENSITIVITY 2024-11-22 22:33 [facility] 17.1 ng/l Critical result [facility] 17.1 pg/mL called to and read back by EBEN SwansonVISION TEACHER) at 22-Nov-2024 23:36 by amaris. A HIGH SENSITIVITY TROPONIN result of >= 14.9 ng/L for females is considered POSITIVE. A HIGH SENSITIVITY TROPONIN result of >= 19.8 ng/L for males is considered POSITIVE. A HIGH SENSITIVITY TROPONIN result of >= 17.9 ng/L for unspecified is considered POSITIVE. WHITE BLOOD COUNT 2024-11-22 22:33 [facility] 18.2 x10 3/ul (missing) AST ASPARTATE AMINOTRANSFERASE 2024-11-22 22:33 [facility] 19 iu/l Slightly Hemolyzed: Results may be affected. As of February 2023 testing method has changed, this may include reference ranges. GLOBULIN 2024-11-22 22:33 [facility] 2.4 g/dl (missing) PLT - PLATELET COUNT 2024-11-22 22:33 [facility] 230 10 3/ul (missing) MEAN CORPUSCULAR HEMOGLOBIN 2024-11-22 22:33 [facility] 29.8 pg (missing) ALBUMIN 2024-11-22 22:33 [facility] 3.6 g/dl As of February 2023 testing method has changed, this may include reference ranges. POTASSIUM 2024-11-22:33 [facility] 3.7 mmol/l Slightly Hemolyzed: Results may be affected. As of February 2023 testing method has changed, this may include reference ranges. CARBON DIOXIDE - CO2 2024-11-22 22:33 [facility] 31 mmol/l As of February 2023 testing method has changed, this may include reference ranges. MEAN CORPUSCULAR HGB CONC 2024-11-22 22:33 [facility] 32.7 g/dl (missing) VBG HCO3 2024-11-22 22:33 [facility] 34.9 mmol/l (missing) VBG TOTAL CO2 2024-11-22 22:33 [facility] 36.5 mmol/l (missing) RED BLOOD COUNT 2024-11-22 22:33 [facility] 4.86 10 6/ul (missing) HCT - HEMATOCRIT 2024-11-22 22:33 [facility] 44.3 % (missing) ALKALINE PHOSPHATASE 2024-11-22 22:33 [facility] 46 iu/l As of February 2023 testing method has changed, this may include reference ranges. VBG PCO2 2024-11-22 22:33 [facility] 51.0 mmhg (missing) TOTAL PROTEIN 2024-11-22 22:33 [facility] 6.0 g/dl As of February 2023 testing method has changed, this may include reference ranges. VBG PO2 2024-11-22 22:33 [facility] 60.3 mmhg (missing) ANION GAP 2024-11-22 22:33 [facility] 7.0 (missing) (missing) VBG PH 2024-11-22 22:33 [facility] 7.440 (missing) (missing) ALT ALANINE AMINOTRANSFERASE 2024-11-22 22:33 [facility] 8 iu/l As of February 2023 testing method has changed, this may include reference ranges. CALCIUM 2024-11-22 22:33 [facility] 8.8 mg/dl As of February 2023 testing method has changed, this may include reference ranges. VBG OXYGEN SATURATION 2024-11-22 22:33 [facility] 88.0 % (missing) MEAN CORPUSCULAR VOLUME 2024-11-22 22:33 [facility] 91.2 fl (missing) CHLORIDE 2024-11-22 22:33 [facility] 96 mmol/l As of February 2023 testing method has changed, this may include reference ranges. GFR - MDRD 2024-11-22 22:33 [facility] 97 (missing) Social History date description facility
[2024-11-23 04:30] LABS: BASOPHILS % (AUTO) 0.2 %; EOSINOPHILS % (AUTO) 0.2 %; HCT - HEMATOCRIT 44.3 % (37.0-47.0); LYMPHOCYTES # (AUTO) 0.3 10^3/uL (1.5-3.5); LYMPHOCYTES % (AUTO) 2.9 %; MEAN CORPUSCULAR HEMOGLOBIN 29.3 pg (27.0-31.0); MEAN CORPUSCULAR HGB CONC 31.6 g/dL (32.0-36.0); MEAN CORPUSCULAR VOLUME 92.7 fL (81.0-99.0); MEAN PLATELET VOLUME 11.8 fL (7.9-10.8); MONOCYTES # (AUTO) 0.5 10^3/uL (0.0-1.0); MONOCYTES % (AUTO) 4.6 %; NEUTROPHILS # (AUTO) 10.2 10^3/uL (1.5-6.6); NEUTROPHILS % (AUTO) 89.8 %; PLT - PLATELET COUNT 229 10^3/uL (130-450); RED BLOOD COUNT 4.78 10^6/uL (4.20-5.40); RED CELL DISTRIBUTION WIDTH 13.2 % (12.0-15.0); WHITE BLOOD COUNT 11.3 x10^3/uL (4.8-10.8)
[2024-11-23 04:40] LABS: CALCIUM, IONIZED 1.13 mmol/L (1.09-1.30); VBG PH 7.341 (7.31-7.41)
[2024-11-23 04:47] LABS: MAGNESIUM 1.8 mg/dL (1.7-2.3); PHOSPHORUS 2.1 mg/dL (2.5-5.0)
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
[2024-11-23 04:48] LABS: CALCIUM 8.7 mg/dL (8.5-10.3); CREATININE 0.7 mg/dL (0.6-1.3); POTASSIUM 3.5 mmol/L (3.5-4.5)
[2024-11-23] MEDS: methylPREDNISolone SUCCINATE 40 MG/ML VIAL IVP SCH ×2 (05:22→23:43)
[2024-11-23] MEDS: MAGNESIUM SULFATE 2 GRAM 2 GM/50 ML BAG IV ONE (06:18)
[2024-11-23] MEDS: LEVOTHYROXINE 25 MCG TABLET PO SCH (06:39)
[2024-11-23] MEDS: ALBUTEROL NEB 2.5 MG/3 ML INH SCH (07:09)
[2024-11-23] MEDS: IPRATROPIUM 0.2 MG/ML NEB INH SCH (07:09)
[2024-11-23] MEDS: POTASSIUM PHOSPHATE 15 MMOL in SODIUM CHLORIDE 0.9% 250 ML IV ONE (07:51)
[2024-11-23] MEDS: DIVALPROEX DR 250 MG TABLET PO SCH (08:20)
[2024-11-23] MEDS: HEPARIN 5,000 UNIT/ML VIAL SUBQ SCH (08:20)
[2024-11-23] MEDS: SODIUM CHLORIDE FLUSH 0.9% 10 ML SYRINGE IVP SCH (08:22)
[2024-11-23] MEDS ORDERED: NEUTRA-PHOS 250 MG TABLET FT SCH (10:00)
[2024-11-23] MEDS: DEXMEDETOMIDINE 400 MCG/100 ML 100 ML IV SCH (10:05)
--- NOTE | 2024-11-23 14:30 | PROVIDER PROGRESS NOTE ---
Current Medications Current Medications Current Medications: Current Medications Generic Name Dose Route Start Last Admin Trade Name Nathanq PRN Reason Stop Dose Admin Albuterol 2.5 mg 11/23/24 06:00 11/23/24 13:50 Albuterol Neb 2.5 Mg/3 Ml INH 2.5 mg Q6H LORRAINE Administration Divalproex Sodium 500 mg 11/23/24 09:00 11/23/24 08:[address] 250 Mg Tablet PO 500 mg BID LORRAINE Administration Heparin Sodium (Porcine) 5,000 unit 11/23/24 09:00 11/23/24 08:20 Heparin 5,000 Unit/Ml Vial SUBQ 5,000 unit BID LORRAINE Administration Propofol 1,000 mg in 100 mls @ 3.432 mls/hr 11/22/24 22:49 11/23/24 06:23 Diprivan IV 11/24/24 03:57 0 mcg/kg/min TITR STA 0 mls/hr Titration Protocol 10 MCG/KG/MIN Midazolam HCl 50 mg in 50 mls @ 2.288 mls/hr 11/22/24 23:45 11/23/24 09:31 Versed Drip 50 Mg/50 Ml IV 0 mg/kg/hr .[id number] LORRAINE 0 mls/hr Titration Protocol 0.04 MG/KG/HR Azithromycin 500 mg/ Sodium 250 mls @ 250 mls/hr 11/24/24 09:00 Chloride IV 11/25/24 09:59 DAILY LORRAINE Dexmedetomidine/Sodium Chloride 100 mls @ 2.875 mls/hr 11/23/24 10:00 11/23/24 11:36 Precedex Premix IV 0 mcg/kg/hr .[id number] LORRAINE 0 mls/hr Titration Protocol 0.2 MCG/KG/HR Ipratropium [place] 0.5 mg 11/23/24 06:00 11/23/24 13:50 Ipratropium 0.2 Mg/Ml Neb INH 0.5 mg Q6HR LORRAINE Administration Levothyroxine Sodium 50 mcg 11/23/24 07:30 11/23/24 06:39 Levothyroxine 25 Mcg Tablet PO 50 mcg 0730 LORRAINE Administration Methylprednisolone 40 mg 11/23/24 06:00 11/23/24 12:27 Methylprednisolone Succinate 40 Mg/Ml Vial IVP 40 mg Q6HR LORRAINE Administration Ondansetron HCl 4 mg 11/23/24 03:14 Ondansetron 4 Mg/2 Ml Vial IVP Q6HR PRN Nausea / Vomiting Sodium Chloride 10 ml 11/23/24 09:00 11/23/24 12:27 Sodium Chloride Flush 0.9% 10 Ml Syringe IVP 10 ml 0100,0900,1700 LORRAINE Administration Sodium Chloride 10 ml 11/23/24 03:09 Sodium Chloride Flush 0.9% 10 Ml Syringe IVP PRN PRN NEEDED PER PROVIDER ORDERS Objective Vital Signs/Intake & Output Vital Signs: Vital Signs Temp Pulse Pulse Resp BP Pulse Ox 11/23/24 14:00 85 10 L 151/79 H 100 11/23/24 13:52 94 11/23/24 13:00 86 12 145/85 H 98 11/23/24 12:00 36.6 C 88 14 120/73 99 11/23/24 11:00 94 16 128/81 97 Intake & Output: Intake & Output 11/20/24 11/21/24 11/22/24 11/23/24 23:59 23:59 23:59 23:59 Intake Total 1007 / 1007 639 / 639 Output Total 264 / 264 Balance 1007 / 1007 375 / 375 Weight (kg) 57.2 kg 57.5 kg Lab Results 11/23/24 04:15 11/23/24 04:15 Other Labs: Lab Results x24hrs 11/23/24 11/23/24 11/23/24 Range/Units 04:15 03:45 01:22 WBC 11.3 H (4.8-10.8) x10^3/uL RBC 4.78 (4.20-5.40) 10^6/uL Hgb 14.0 (12.0-16.0) g/dL Hct 44.3 (37.0-47.0) % MCV 92.7 (81.0-99.0) fL MCH 29.3 (27.0-31.0) pg MCHC 31.6 L (32.0-36.0) g/dL RDW 13.2 (12.0-15.0) % Plt Count 229 (130-450) 10^3/uL MPV 11.8 H (7.9-10.8) fL Neut # (Auto) 10.2 H (1.5-6.6) 10^3/uL Lymph # (Auto) 0.3 L (1.5-3.5) 10^3/uL Hubbard # (Auto) 0.5 (0.0-1.0) 10^3/uL Eos # (Auto) 0.0 (0.0-0.7) 10^3/uL Baso # (Auto) 0.0 (0.0-0.1) 10^3/uL Absolute Nucleated RBC 0.00 x10^3/uL Nucleated RBC % 0.0 /100WBC Bld Gas Analysis Time Sample Site ABG pH (7.35-7.45) ABG pCO2 (34-45) mmHg ABG pO2 (83-108) mmHg ABG HCO3 (22.0-26.0) mmol/L ABG Total CO2 (21.0-29.0) mmol/L ABG O2 Saturation (95-98) % ABG Base Excess (-2.0-3.0) mmol/L Dilip Test VBG pH 7.341 (7.31-7.41) VBG pCO2 (41-51) mmHg VBG pO2 (25-47) mmHg VBG HCO3 (23-28) mmol/L VBG Total CO2 (24-29) mmol/L VBG O2 Saturation (60-80) % VBG Base Excess (-2 - +2) mmol/L Ionized Calcium 1.13 (1.09-1.30) mmol/L Respiration Rate b/min O2 Delivery Device Vent Mode FiO2 Tidal Volume mL PEEP cmH2O Sodium 138 (135-145) mmol/L Potassium 3.5 (3.5-4.5) mmol/L Chloride 98 L (101-111) mmol/L Carbon Dioxide 28 (21-32) mmol/L Anion Gap 12.0 (6-13) BUN 14 (6-20) mg/dL Creatinine 0.7 (0.6-1.3) mg/dL Estimated GFR (MDRD) 81 L (>89) Glucose 158 H (74-104) mg/dL Lactic Acid (0.5-2.2) mmol/L Calcium 8.7 (8.5-10.3) mg/dL Phosphorus 2.1 L (2.5-5.0) mg/dL Magnesium 1.8 (1.7-2.3) mg/dL Total Bilirubin (0.2-1.0) mg/dL AST (10-42) IU/L ALT (10-60) IU/L Alkaline Phosphatase (42-121) IU/L Troponin I High Sens (2.3-14.8) ng/L B-Natriuretic Peptide (5-100) pg/mL Total Protein (6.4-8.9) g/dL Albumin (3.2-5.5) g/dL Globulin (2.1-4.2) g/dL Albumin/Globulin Ratio (1.0-2.2) Nasal Adenovirus (PCR) NOT DETECTED Nasal B. parapertussis DNA (PCR) NOT DETECTED Nasal Coronavir 229E PCR NOT DETECTED Nasal Coronavir HKU1 PCR NOT DETECTED Nasal Coronavir NL63 PCR NOT DETECTED Nasal Coronavir OC43 PCR NOT DETECTED Nasal Enterovir/Rhinovir PCR NOT DETECTED Nasal Influenza B PCR NOT DETECTED Nasal Influenza A PCR NOT DETECTED Nasal Parainfluen 1 PCR DETECTED A Nasal Parainfluen 2 PCR NOT DETECTED Nasal Parainfluen 3 PCR NOT DETECTED Nasal Parainfluen 4 PCR NOT DETECTED Nasal RSV (PCR) NOT DETECTED Nasal Screen MRSA (PCR) NEGATIVE (NEGATIVE) Nasal B.pertussis DNA PCR NOT DETECTED Nasal C.pneumoniae (PCR) NOT DETECTED Tab Human Metapneumo PCR NOT DETECTED Nasal M.pneumoniae (PCR) NOT DETECTED Nasal SARS-CoV-2 (PCR) NOT DETECTED 11/23/24 11/22/24 11/22/24 Range/Units 00:40 23:25 23:00 WBC (4.8-10.8) x10^3/uL RBC (4.20-5.40) 10^6/uL Hgb (12.0-16.0) g/dL Hct (37.0-47.0) % MCV (81.0-99.0) fL MCH (27.0-31.0) pg MCHC (32.0-36.0) g/dL RDW (12.0-15.0) % Plt Count (130-450) 10^3/uL MPV (7.9-10.8) fL Neut # (Auto) (1.5-6.6) 10^3/uL Lymph # (Auto) (1.5-3.5) 10^3/uL Hubbard # (Auto) (0.0-1.0) 10^3/uL Eos # (Auto) (0.0-0.7) 10^3/uL Baso # (Auto) (0.0-0.1) 10^3/uL Absolute Nucleated RBC x10^3/uL Nucleated RBC % /100WBC Bld Gas Analysis Time 2305 Sample Site RIGHT RADIAL ABG pH 7.47 H (7.35-7.45) ABG pCO2 44 (34-45) mmHg ABG pO2 497 H (83-108) mmHg ABG HCO3 32.3 H (22.0-26.0) mmol/L ABG Total CO2 33.6 H (21.0-29.0) mmol/L ABG O2 Saturation 100 H (95-98) % ABG Base Excess 8.4 H (-2.0-3.0) mmol/L Dilip Test POSITIVE VBG pH (7.31-7.41) VBG pCO2 (41-51) mmHg VBG pO2 (25-47) mmHg VBG HCO3 (23-28) mmol/L VBG Total CO2 (24-29) mmol/L VBG O2 Saturation (60-80) % VBG Base Excess (-2 - +2) mmol/L Ionized Calcium (1.09-1.30) mmol/L Respiration Rate 16 b/min O2 Delivery Device VENTILATOR Vent Mode ASSIST/CONTROL FiO2 100.00 Tidal Volume 400 mL PEEP 5 cmH2O Sodium (135-145) mmol/L Potassium (3.5-4.5) mmol/L Chloride (101-111) mmol/L Carbon Dioxide (21-32) mmol/L Anion Gap (6-13) BUN (6-20) mg/dL Creatinine (0.6-1.3) mg/dL Estimated GFR (MDRD) (>89) Glucose (74-104) mg/dL Lactic Acid 1.9 (0.5-2.2) mmol/L Calcium (8.5-10.3) mg/dL Phosphorus (2.5-5.0) mg/dL Magnesium (1.7-2.3) mg/dL Total Bilirubin (0.2-1.0) mg/dL AST (10-42) IU/L ALT (10-60) IU/L Alkaline Phosphatase (42-121) IU/L Troponin I High Sens 24.8 H* (2.3-14.8) ng/L B-Natriuretic Peptide (5-100) pg/mL Total Protein (6.4-8.9) g/dL Albumin (3.2-5.5) g/dL Globulin (2.1-4.2) g/dL Albumin/Globulin Ratio (1.0-2.2) Nasal Adenovirus (PCR) Nasal B. parapertussis DNA (PCR) Nasal Coronavir 229E PCR Nasal Coronavir HKU1 PCR Nasal Coronavir NL63 PCR Nasal Coronavir OC43 PCR Nasal Enterovir/Rhinovir PCR Nasal Influenza B PCR Nasal Influenza A PCR Nasal Parainfluen 1 PCR Nasal Parainfluen 2 PCR Nasal Parainfluen 3 PCR Nasal Parainfluen 4 PCR Nasal RSV (PCR) Nasal Screen MRSA (PCR) (NEGATIVE) Nasal B.pertussis DNA PCR Nasal C.pneumoniae (PCR) Tab Human Metapneumo PCR Nasal M.pneumoniae (PCR) Nasal SARS-CoV-2 (PCR) 11/22/24 Range/Units 22:33 WBC 18.2 H (4.8-10.8) x10^3/uL RBC 4.86 (4.20-5.40) 10^6/uL Hgb 14.5 (12.0-16.0) g/dL Hct 44.3 (37.0-47.0) % MCV 91.2 (81.0-99.0) fL MCH 29.8 (27.0-31.0) pg MCHC 32.7 (32.0-36.0) g/dL RDW 13.2 (12.0-15.0) % Plt Count 230 (130-450) 10^3/uL MPV 11.7 H (7.9-10.8) fL Neut # (Auto) 15.4 H (1.5-6.6) 10^3/uL Lymph # (Auto) 1.7 (1.5-3.5) 10^3/uL Hubbard # (Auto) 0.8 (0.0-1.0) 10^3/uL Eos # (Auto) 0.0 (0.0-0.7) 10^3/uL Baso # (Auto) 0.1 (0.0-0.1) 10^3/uL Absolute Nucleated RBC 0.00 x10^3/uL Nucleated RBC % 0.0 /100WBC Bld Gas Analysis Time Sample Site ABG pH (7.35-7.45) ABG pCO2 (34-45) mmHg ABG pO2 (83-108) mmHg ABG HCO3 (22.0-26.0) mmol/L ABG Total CO2 (21.0-29.0) mmol/L ABG O2 Saturation (95-98) % ABG Base Excess (-2.0-3.0) mmol/L Dilip Test VBG pH 7.440 H (7.31-7.41) VBG pCO2 51.0 (41-51) mmHg VBG pO2 60.3 H (25-47) mmHg VBG HCO3 34.9 H (23-28) mmol/L VBG Total CO2 36.5 H (24-29) mmol/L VBG O2 Saturation 88.0 H (60-80) % VBG Base Excess 10.6 H (-2 - +2) mmol/L Ionized Calcium (1.09-1.30) mmol/L Respiration Rate b/min O2 Delivery Device Vent Mode FiO2 Tidal Volume mL PEEP cmH2O Sodium 134 L (135-145) mmol/L Potassium 3.7 (3.5-4.5) mmol/L Chloride 96 L (101-111) mmol/L Carbon Dioxide 31 (21-32) mmol/L Anion Gap 7.0 (6-13) BUN 12 (6-20) mg/dL Creatinine 0.6 (0.6-1.3) mg/dL Estimated GFR (MDRD) 97 (>89) Glucose 106 H (74-104) mg/dL Lactic Acid (0.5-2.2) mmol/L Calcium 8.8 (8.5-10.3) mg/dL Phosphorus (2.5-5.0) mg/dL Magnesium 1.9 (1.7-2.3) mg/dL Total Bilirubin 0.5 (0.2-1.0) mg/dL AST 19 (10-42) IU/L ALT 8 L (10-60) IU/L Alkaline Phosphatase 46 (42-121) IU/L Troponin I High Sens 17.1 H* (2.3-14.8) ng/L B-Natriuretic Peptide 113 H (5-100) pg/mL Total Protein 6.0 L (6.4-8.9) g/dL Albumin 3.6 (3.2-5.5) g/dL Globulin 2.4 (2.1-4.2) g/dL Albumin/Globulin Ratio 1.5 (1.0-2.2) Nasal Adenovirus (PCR) Nasal B. parapertussis DNA (PCR) Nasal Coronavir 229E PCR Nasal Coronavir HKU1 PCR Nasal Coronavir NL63 PCR Nasal Coronavir OC43 PCR Nasal Enterovir/Rhinovir PCR Nasal Influenza B PCR Nasal Influenza A PCR Nasal Parainfluen 1 PCR Nasal Parainfluen 2 PCR Nasal Parainfluen 3 PCR Nasal Parainfluen 4 PCR Nasal RSV (PCR) Nasal Screen MRSA (PCR) (NEGATIVE) Nasal B.pertussis DNA PCR Nasal C.pneumoniae (PCR) Tab Human Metapneumo PCR Nasal M.pneumoniae (PCR) Nasal SARS-CoV-2 (PCR) Sepsis Event Note (H) Evaluation Current Stage of Sepsis: Sepsis Possible source of Sepsis: positive Pulmonary Sepsis Criteria Sepsis Criteria: Suspected or Documented, Recorded Heart Rate greater than 90 bpm, Recorded Respiratory Rate greater than 20 and WBC count greater than 12,000 or less than 4000 Assessment/Plan Problem List (1) COPD (chronic obstructive pulmonary disease): Impression: Pt seen and examined today. Chart reviewed. 78 yo F with pmhx of COPD, RUL small cell lung Ca (dx approx 1 yr ago, s/p 5 doses of radiation), GERD, bipolar d/o presenting with SOB, hypoxia to 80s, agitation, confusion. Intubated for airway protection in the ED. Today she remains intubated and sedated. Minimal vent settings- FiO2 30% and sat high 90s. Lungs CTAB, RRR, S1S2, no edema. Labs and imaging reviewed. Na 138, wbc 18-> 13.3. phos 2.1 resp viral panel- paraflu - treat COPD exacerbation caused by paraflu- scheduled nebs, solumedrol 40 iv q 6, azithromycin x 3 d - weaning sedatives- give precedex prn during sedative wean if needed given agitation - mivf - suspect AMS due to infection/sepsis, hypoxia, bipolar. Obtain utox. - updated Dillan Richey by phone today and he agrees with plan. He notes he has also had URI symptoms in recent days and is improving. He cannot provide much history regarding pt's recent condition. Pt is not on home O2. He states she is sometimes agitated due to frustration with medical problems. He states she is compliant with psych meds and does not use etoh or other drugs. remainder per H&P Full code
[2024-11-23 14:51] LABS: MAGNESIUM 2.2 mg/dL (1.7-2.3); PHOSPHORUS 3.9 mg/dL (2.5-5.0); POTASSIUM 4.2 mmol/L (3.5-4.5)
[2024-11-23] MEDS: DEXTROSE 5%-LACTATED RINGERS 1,000 ML IV SCH (15:31)
--- NOTE | 2024-11-23 15:37 | PHARMACY PROGRESS NOTE ---
Best Possible Medication History Admit Date and Time: 11/23/24 0309 Home Medications Medication Instructions Recorded Confirmed Type ciclesonide 160 mcg/actuation 1 puff IH BID 05/06/19 11/23/24 History aerosol inhaler (Alvesco) divalproex 500 mg tablet,delayed 500 mg PO BID 09/13/22 11/23/24 History release (Depakote) ipratropium 0.5 mg-albuterol 3 mg See Rx Instructions .Route 06/18/24 11/23/24 Rx (2.5 mg base)/3 mL nebulization .COMPLEX #270 mL soln cyanocobalamin (vitamin B-12) 1,000 mcg PO QDAY 06/26/24 11/23/24 History 1,000 mcg capsule cyclobenzaprine 10 mg tablet 10 mg PO TID PRN muscle spasm 06/26/24 11/23/24 History levothyroxine 50 mcg tablet 50 mcg PO QDAY 06/26/24 11/23/24 History nebulizer and compressor 06/26/24 06/26/24 History omeprazole 20 mg capsule,delayed 20 mg PO QDAY 06/26/24 11/23/24 History release tiotropium 2.5 mcg-olodaterol 2.5 2 puff inhalation QDAY 06/26/24 11/23/24 History mcg/actuation mist for inhalation (Stiolto Respimat) albuterol sulfate 90 mcg/actuation See Rx Instructions .Route 07/20/24 11/23/24 Rx aerosol inhaler .COMPLEX #13.4 grams fluticasone propionate 50 1 spray intranasal BID PRN nasal 09/03/24 11/23/24 Rx mcg/actuation nasal congestion #48 grams spray,suspension fexofenadine PO DIRECTED 10/26/24 History sodium chloride [Saline Solution] 10/26/24 History duloxetine 30 mg capsule,delayed 30 mg PO QDAY 11/23/24 11/23/24 History release prednisone 5 mg tablet 15 mg PO DAILY 11/23/24 11/23/24 History Processed by: Pharmacy Medications reviewed in ED?: No Medication History completed: Yes Patient Interview: Pt unable to participate Secondary Source(s): Insurance records and Previous admit records [facility] Statement: As the person ultimately responsible for medication therapy, providers are able to order a medication from an existing home medication list in [facility] via the "Reconcile Routine" prior to Confirmation of that medication by high school learning support teacher. Such practice is discouraged except when the physician, in their clinical judgment, deems that a medical need exists for a medication without regard to previous use.
[2024-11-23 16:46] LABS: ABG BASE EXCESS 8.5 mmol/L (-2.0-3.0); ABG HCO3 32.1 mmol/L (22.0-26.0); ABG OXYGEN SATURATION 97 % (95-98); ABG PCO2 42 mmHg (34-45); ABG PH 7.49 (7.35-7.45); ABG PO2 82 mmHg (83-108); ABG TCO2 33.4 mmol/L (21.0-29.0)
[2024-11-23 16:47] LABS: ALLEN TEST POSITIVE
[2024-11-23] MEDS: SODIUM CHLORIDE FLUSH 0.9% 10 ML SYRINGE IVP PRN (18:24)
[2024-11-23] MEDS: ALBUTEROL NEB 2.5 MG/3 ML INH ONE (20:22)
[2024-11-23 20:31] LABS: ABG HCO3 31.2 mmol/L (22.0-26.0); ABG OXYGEN SATURATION 99 % (95-98); ABG PCO2 44 mmHg (34-45); ABG PH 7.45 (7.35-7.45); ABG PO2 161 mmHg (83-108); ABG TCO2 32.5 mmol/L (21.0-29.0); ALLEN TEST POSITIVE
[2024-11-23 20:32] LABS: ABG RESPIRATORY RATE 18 b/min
--- NOTE | 2024-11-23 20:53 | XRAY Report ---
PROCEDURE: XR Chest 1V INDICATIONS: hypoxia TECHNIQUE: One view of the chest was acquired. COMPARISON: 11/22/2024 FINDINGS AND IMPRESSION: Right upper lobe mass again seen. Increased left lung base opacity and possible small effusion, possi kaylen infectious. Surveillance imaging is recommended for these findings. Normal heart size. Degenerative osseous changes. Reviewed by: Romario Gutierrez MD on 11/23/2024 8:51 PM PDT Approved by: Romario Gutierrez MD on 11/23/2024 8:51 PM PDT Station ID: [id number]
[2024-11-23] MEDS: cefTRIAXone 1 GM in SODIUM CHLORIDE 0.9% MINIBAG 100 ML IV SCH (21:05)
[2024-11-23] MEDS: DEXMEDETOMIDINE 400 MCG/100 ML 100 ML IV PRN (21:06)
[2024-11-23] MEDS: guaiFENesin 600 MG TABLET PO SCH (21:18)
[2024-11-23] MEDS: IPRATROPIUM/ALBUTEROL 3 ML NEB INH SCH (22:42)
[2024-11-24 04:31] LABS: BASOPHILS % (AUTO) 0.1 %; HCT - HEMATOCRIT 37.2 % (37.0-47.0); HGB - HEMOGLOBIN 12.1 g/dL (12.0-16.0); LYMPHOCYTES # (AUTO) 0.5 10^3/uL (1.5-3.5); LYMPHOCYTES % (AUTO) 3.1 %; MEAN CORPUSCULAR HEMOGLOBIN 29.7 pg (27.0-31.0); MEAN CORPUSCULAR HGB CONC 32.5 g/dL (32.0-36.0); MEAN CORPUSCULAR VOLUME 91.4 fL (81.0-99.0); MEAN PLATELET VOLUME 12.3 fL (7.9-10.8); MONOCYTES # (AUTO) 0.6 10^3/uL (0.0-1.0); MONOCYTES % (AUTO) 3.8 %; NEUTROPHILS % (AUTO) 92.1 %; PLT - PLATELET COUNT 211 10^3/uL (130-450); RED BLOOD COUNT 4.07 10^6/uL (4.20-5.40); RED CELL DISTRIBUTION WIDTH 13.3 % (12.0-15.0); WHITE BLOOD COUNT 16.2 x10^3/uL (4.8-10.8)
[2024-11-24 04:46] LABS: CALCIUM 8.3 mg/dL (8.5-10.3); CREATININE 0.5 mg/dL (0.6-1.3); MAGNESIUM 2.1 mg/dL (1.7-2.3); PHOSPHORUS 3.1 mg/dL (2.5-5.0); POTASSIUM 3.9 mmol/L (3.5-4.5)
[2024-11-24 04:50] LABS: VBG PH 7.559 (7.31-7.41)
[2024-11-24 04:51] LABS: CALCIUM, IONIZED 1.17 mmol/L (1.09-1.30)
[2024-11-24 04:52] LABS: VBG BASE EXCESS 9.6 mmol/L (-2 - +2); VBG PCO2 39.6 mmHg (41-51); VBG PO2 131.8 mmHg (25-47); VBG TOTAL CO2 33.9 mmol/L (24-29)
[2024-11-24 04:58] LABS: THYROID STIMULATING HORMONE 0.5 uIU/mL (0.34-5.60)
[2024-11-24] MEDS: POTASSIUM CHLORIDE 20 MEQ TABLET PO ONE (09:19)
[2024-11-24] MEDS: AZITHROMYCIN INJ 500 MG in SODIUM CHLORIDE 0.9% 250 ML IV SCH (09:20)
[2024-11-24] MEDS: DULoxetine 30 MG CAPSULE PO SCH (09:24)
[2024-11-24] MEDS: IPRATROPIUM/ALBUTEROL 3 ML NEB INH SCH (10:28)
[2024-11-24] MEDS: FLUTICASONE NASAL SPRAY NAS SCH (12:31)
[2024-11-24 17:23] LABS: VBG BASE EXCESS 8.7 mmol/L (-2 - +2); VBG PCO2 46.2 mmHg (41-51); VBG PH 7.455 (7.31-7.41); VBG PO2 74.4 mmHg (25-47); VBG TOTAL CO2 34.2 mmol/L (24-29)
--- NOTE | 2024-11-24 19:26 | PROVIDER PROGRESS NOTE ---
Subjective Prog Note Date Prog Note Date: 11/24/24 Prog Note Time: 15:00 Subjective Pt reports feeling: Improved Subjective: Pt remained on BiPAP overnight. This am weaned to NC. She is awake and communicative. Reports severe SOB, cough, not able to cough up much sputum. No CP. Tolerating some po intake. Current Medications Current Medications Current Medications: Current Medications Generic Name Dose Route Start Last Admin Trade Name Freq PRN Reason Stop Dose Admin Acetaminophen 650 mg 11/24/24 09:15 Acetaminophen 325 Mg Tablet PO Q4HR PRN Pain or Fever > 38C (100.4F) Albuterol 2.5 mg 11/23/24 21:23 Albuterol Neb 2.5 Mg/3 Ml INH RTQ4H PRN Wheezing Albuterol/Ipratropium 3 ml 11/24/24 11:00 11/24/24 19:11 Ipratropium/Albuterol 3 Ml Neb INH 3 ml RTQ4H LORRAINE Administration Divalproex Sodium 500 mg 11/23/24 09:00 11/24/24 09:[address] 250 Mg Tablet PO 500 mg BID LORRAINE Administration Duloxetine HCl 30 mg 11/24/24 09:00 11/24/24 09:24 Duloxetine 30 Mg Capsule PO 30 mg DAILY LORRAINE Administration Fluticasone Propionate 1 sprays 11/24/24 12:00 11/24/24 12:31 Fluticasone Nasal [place] CHRISTIANA 1 sprays DAILY LORRAINE Administration Guaifenesin 1,200 mg 11/23/24 21:00 11/24/24 09:19 Guaifenesin 600 Mg Tablet PO 1,200 mg BID LORRAINE Administration Heparin Sodium (Porcine) 5,000 unit 11/23/24 09:00 11/24/24 09:36 Heparin 5,000 Unit/Ml Vial SUBQ 5,000 unit BID LORRAINE Administration Midazolam HCl 50 mg in 50 mls @ 2.288 mls/hr 11/22/24 23:45 11/24/24 17:52 Versed Drip 50 Mg/50 Ml IV Not Given .[id number] LORRAINE Protocol 0.04 MG/KG/HR Azithromycin 500 mg/ Sodium 250 mls @ 250 mls/hr 11/24/24 09:00 11/24/24 11:18 Chloride IV 11/25/24 09:59 Infused DAILY LORRAINE Infusion Dextrose/Lactated Ringer's 1,000 mls @ 75 mls/hr 11/23/24 15:00 11/24/24 17:49 D5lr IV 75 mls/hr .[id number] LORRAINE Administration Ceftriaxone Sodium 1 gm/ 100 mls @ 200 mls/hr 11/23/24 20:30 11/24/24 09:45 Sodium Chloride IV Infused DAILY LORRAINE Infusion Dexmedetomidine/Sodium Chloride 100 mls @ 2.875 mls/hr 11/23/24 20:38 11/24/24 13:55 Precedex Premix IV 0.2 mcg/kg/hr .[id number] PRN 2.88 mls/hr Agitation Titration Protocol 0.2 MCG/KG/HR Ipratropium Simpson 0.5 mg 11/23/24 21:23 Ipratropium 0.2 Mg/Ml Neb INH RTQ6H PRN Shortness of Air/Wheezing Levothyroxine Sodium 50 mcg 11/23/24 07:30 11/24/24 06:32 Levothyroxine 25 Mcg Tablet PO 50 mcg 0730 LORRAINE Administration Methylprednisolone 60 mg 11/24/24 00:00 11/24/24 17:51 Methylprednisolone Succinate 40 Mg/Ml Vial IVP 60 mg Q6H LORRAINE Administration Ondansetron HCl 4 mg 11/23/24 03:14 Ondansetron 4 Mg/2 Ml Vial IVP Q6HR PRN Nausea / Vomiting Sodium Chloride 10 ml 11/23/24 09:00 11/24/24 16:54 Sodium Chloride Flush 0.9% 10 Ml Syringe IVP 10 ml 0100,0900,1700 LORRAINE Administration Sodium Chloride 10 ml 11/23/24 03:09 11/23/24 18:24 Sodium Chloride Flush 0.9% 10 Ml Syringe IVP 10 ml PRN PRN Administration NEEDED PER PROVIDER ORDERS Tramadol HCl 25 mg 11/24/24 09:15 Tramadol 50 Mg Tablet PO Q6HR PRN Moderate Pain (Level 4-6) Objective Vital Signs/Intake & Output Reviewed Vital Signs: Yes Vital Signs: Vital Signs x48h Temp Pulse Pulse Resp BP Pulse Ox O2 Flow Rate 11/24/24 19:00 85 26 H 156/89 H 92 11/24/24 18:00 85 28 H 168/94 H 92 11/24/24 17:00 88 27 H 158/91 H 90 L 11/24/24 16:05 164/98 H 11/24/24 16:00 36.9 C 90 21 166/98 H 99 50 11/24/24 15:00 93 29 H 148/85 H 98 50 11/24/24 14:55 45 11/24/24 14:31 91 26 H 11/24/24 14:00 45 11/24/24 14:00 36.6 C 88 29 H 157/91 H 98 50 11/24/24 13:00 90 29 H 142/91 H 98 50 11/24/24 12:00 36.7 C 89 29 H 123/77 100 50 Intake & Output: Intake & Output 11/21/24 11/22/24 11/23/24 11/24/24 23:59 23:59 23:59 23:59 Intake Total 1007 / 1007 1118 / 1118 2625 / 2625 Output Total 423 / 423 863 / 863 Balance 1007 / 1007 695 / 695 1762 / 1762 Weight (kg) 57.2 kg 57.5 kg 58.5 kg Objective Comments/Other: elderly woman lying in bed, NAD, sclera anicteric, MMM Lungs: very poor air entry, scattered bilateral crackles and wheezes, weak cough. Tachypnea high 20, faster after coughing fits. Episodes of increased WOB, improved with HFNC. RRR, S1S2, no edema abd soft, NT, ND, BS+ alert, oriented x 3, follows commands, strength 5/5 UE and LE justice Lab Results 11/24/24 04:22 11/24/24 04:22 Other Labs: Lab Results x24hrs 11/24/24 11/24/24 11/23/24 Range/Units 17:16 04:22 20:15 WBC 16.2 H (4.8-10.8) x10^3/uL RBC 4.07 L (4.20-5.40) 10^6/uL Hgb 12.1 (12.0-16.0) g/dL Hct 37.2 (37.0-47.0) % MCV 91.4 (81.0-99.0) fL MCH 29.7 (27.0-31.0) pg MCHC 32.5 (32.0-36.0) g/dL RDW 13.3 (12.0-15.0) % Plt Count 211 (130-450) 10^3/uL MPV 12.3 H (7.9-10.8) fL Neut # (Auto) 15.0 H (1.5-6.6) 10^3/uL Lymph # (Auto) 0.5 L (1.5-3.5) 10^3/uL [place] # (Auto) 0.6 (0.0-1.0) 10^3/uL Eos # (Auto) 0.0 (0.0-0.7) 10^3/uL Baso # (Auto) 0.0 (0.0-0.1) 10^3/uL Absolute Nucleated RBC 0.00 x10^3/uL Nucleated RBC % 0.0 /100WBC Bld Gas Analysis Time 2019 Sample Site RIGHT RADIAL ABG pH 7.45 (7.35-7.45) ABG pCO2 44 (34-45) mmHg ABG pO2 161 H (83-108) mmHg ABG HCO3 31.2 H (22.0-26.0) mmol/L ABG Total CO2 32.5 H (21.0-29.0) mmol/L ABG O2 Saturation 99 H (95-98) % ABG Base Excess 7.0 H (-2.0-3.0) mmol/L Dilip Test POSITIVE VBG pH 7.455 H 7.559 H (7.31-7.41) VBG pCO2 46.2 39.6 L (41-51) mmHg VBG pO2 74.4 H 131.8 H (25-47) mmHg VBG HCO3 32.8 H 32.6 H (23-28) mmol/L VBG Total CO2 34.2 H 33.9 H (24-29) mmol/L VBG O2 Saturation 94.0 H 100.0 H (60-80) % VBG Base Excess 8.7 H 9.6 H (-2 - +2) mmol/L Ionized Calcium 1.17 (1.09-1.30) mmol/L Respiration Rate 18 b/min O2 Delivery Device BiPAP FiO2 40.00 Tidal Volume 450 mL EPAP 5 cmH2O IPAP 16 cmH2O Sodium 134 L (135-145) mmol/L Potassium 3.9 (3.5-4.5) mmol/L Chloride 99 L (101-111) mmol/L Carbon Dioxide 30 (21-32) mmol/L Anion Gap 5.0 L (6-13) BUN 16 (6-20) mg/dL Creatinine 0.5 L (0.6-1.3) mg/dL Estimated GFR (MDRD) 120 (>89) Glucose 161 H (74-104) mg/dL Calcium 8.3 L (8.5-10.3) mg/dL Phosphorus 3.1 (2.5-5.0) mg/dL Magnesium 2.1 (1.7-2.3) mg/dL TSH 0.50 (0.34-5.60) uIU/mL Sepsis Event Note (H) Evaluation Current Stage of Sepsis: Sepsis Possible source of Sepsis: positive Pulmonary Sepsis Criteria Sepsis Criteria: Suspected or Documented, Recorded Heart Rate greater than 90 bpm, Recorded Respiratory Rate greater than 20 and WBC count greater than 12,000 or less than 4000 Assessment/Plan Problem List (1) COPD (chronic obstructive pulmonary disease): Impression: 78 yo F with pmhx of COPD, RUL small cell lung Ca (dx approx 1 yr ago, s/p 5 doses of radiation), GERD, bipolar d/o presenting with SOB, hypoxia to 80s, agitation, confusion. Intubated for airway protection in the ED. 1. COPD exacerbation, acute hypoxic respiratory failure, parainfluenza infection, bacterial pneumonia: s/p extubation in afternoon 11/23/24. O2 sat is good- high 90s on 1-2 L NC, drops to 90% on RA. Lung remain very tight and intermittent increased WOB, tachypnea. CXR with increased L basilar opacity- will treat for CAP. Weaned to RA this afternoon no change in respiratory status. Oxygenation is good. Her problem is ventilation. - scheduled nebs q 4 hr, solumedrol 40 iv q 6, - CTX, azithro - goal sat 88-94%, not higher - if increased WOB, try BiPAP. Will place on BiPAP overnight if tolerates - continue low dose precedex for anxiety until respiratory status improves 2. toxic/metabolic encephalopathy: due to hypoxia, infection, bipolar d/o. Improved. Calm now. - f/u utox - monitor 3. myocardial injury: mild trop elevation on arrival likely demand ischemia from respiratory failure. No CP. - monitor 4. hypophosphatemia: - replete prn 5. RUL small cell lung Ca: s/p radiation treatment 1 yr ago. - monitor dvt ppx: [facility] Dispo plan and GOC: Lives at home with . Pulm: Dr. Zaldivar in [place] Rad-onc: Williams RODAS? Leela Jay in [place] Continue GOC and Code status discussion. Updated at bedside.
[2024-11-24] MEDS: traMADol 50 MG TABLET PO PRN (19:39)
[2024-11-25] MEDS: ALBUTEROL NEB 2.5 MG/3 ML INH PRN (00:08)
[2024-11-25] MEDS: IPRATROPIUM 0.2 MG/ML NEB INH PRN (00:08)
[2024-11-25] MEDS: MORPHINE 2 MG/ML CARPUJECT IVP ONE (01:13)
[2024-11-25 04:33] LABS: BASOPHILS % (AUTO) 0.1 %; EOSINOPHILS % (AUTO) 0.1 %; HCT - HEMATOCRIT 38.8 % (37.0-47.0); HGB - HEMOGLOBIN 12.6 g/dL (12.0-16.0); LYMPHOCYTES # (AUTO) 0.3 10^3/uL (1.5-3.5); LYMPHOCYTES % (AUTO) 2.3 %; MEAN CORPUSCULAR HEMOGLOBIN 29.3 pg (27.0-31.0); MEAN CORPUSCULAR HGB CONC 32.5 g/dL (32.0-36.0); MEAN CORPUSCULAR VOLUME 90.2 fL (81.0-99.0); MEAN PLATELET VOLUME 12.1 fL (7.9-10.8); MONOCYTES # (AUTO) 0.4 10^3/uL (0.0-1.0); MONOCYTES % (AUTO) 2.8 %; NEUTROPHILS # (AUTO) 13.7 10^3/uL (1.5-6.6); PLT - PLATELET COUNT 223 10^3/uL (130-450); WHITE BLOOD COUNT 14.6 x10^3/uL (4.8-10.8)
[2024-11-25 04:35] LABS: VBG BASE EXCESS 7.9 mmol/L (-2 - +2); VBG PCO2 42.4 mmHg (41-51); VBG PH 7.477 (7.31-7.41); VBG PO2 127.6 mmHg (25-47); VBG TOTAL CO2 32.9 mmol/L (24-29)
[2024-11-25 04:48] LABS: CALCIUM 8.3 mg/dL (8.5-10.3); CREATININE 0.4 mg/dL (0.6-1.3); PHOSPHORUS 3.1 mg/dL (2.5-5.0); POTASSIUM 4.4 mmol/L (3.5-4.5)
[2024-11-25] MEDS: PANTOPRAZOLE 40 MG TABLET PO SCH (08:24)
[2024-11-25] MEDS: MORPHINE 10 MG/ML VIAL IVP ONE (10:53)
[2024-11-25] MEDS ORDERED: ROCURONIUM 50 MG/5 ML VIAL ONE (12:00)
[2024-11-25] MEDS ORDERED: MIDAZOLAM 2 MG/2 ML VIAL ONE (12:00)
[2024-11-25] MEDS ORDERED: PROPOFOL 200 MG/20 ML VIAL IVP ONE (12:01)
[2024-11-25] MEDS: ROCURONIUM 50 MG/5 ML VIAL IVP ONE (12:05)
[2024-11-25] MEDS: MIDAZOLAM 2 MG/2 ML VIAL IVP ONE (12:05)
--- NOTE | 2024-11-25 12:11 | XRAY Report ---
PROCEDURE: XR Post ET Tube 1V CXR INDICATIONS: SOA, tachypneic, wheezing TECHNIQUE: One view of the chest was acquired. COMPARISON: 11/23/2024 FINDINGS: Surgical changes and devices: None. Lungs and pleura: No pleural effusions or pneumothorax. No consolidation. Right apical scarring wit h associated mass, unchanged. Mediastinum: Mediastinal contours appear normal. Heart size is normal. Bones and chest wall: No suspicious bony lesions. Overlying soft tissues appear unremarkable. IMPRESSION: No enteric tube is present. No acute cardiopulmonary process. Right apical mass. Reviewed by: Dillan Goldstein MD on 11/25/2024 11:10 AM SKY Approved by: Dillan Goldstein MD on 11/25/2024 11:10 AM SKY Station ID: [id number]
[2024-11-25] MEDS ORDERED: iohexoL-300 100 ML VIAL ONE (12:24)
[2024-11-25] MEDS: PROPOFOL 1000 MG/100 ML 1,000 MG/100 ML BOTTLE IV SCH (12:25)
[2024-11-25] MEDS ORDERED: NOREPINEPHRINE/0.9 % NS 8 MG/250 ML BAG IV ONE (12:26)
--- NOTE | 2024-11-25 12:27 | XRAY Report ---
PROCEDURE: XR Chest for Line Placement INDICATIONS: Intubation placement TECHNIQUE: One view of the chest was acquired. COMPARISON: None. FINDINGS: Surgical changes and devices: Enteric tube with side port projecting over the gastric bubble. ET tub e lies 3.9 cm from the candelario. Lungs and pleura: Unchanged appearance of the lungs with right apical mass and scarring. Mediastinum: Mediastinal contours appear normal. Heart size is normal. Bones and chest wall: No suspicious bony lesions. Overlying soft tissues appear unremarkable. IMPRESSION: Appropriate positioning of support devices. Stable right apical mass. Reviewed by: Dillan Goldstein MD on 11/25/2024 11:25 AM SKY Approved by: Dillan Goldstein MD on 11/25/2024 11:25 AM SKY Station ID: [id number]
[2024-11-25] MEDS: LACTATED RINGERS 500 ML IV ONE (12:33)
[2024-11-25] MEDS: NOREPINEPHRINE/0.9 % NS 8 MG/250 ML BAG IV SCH (12:34)
--- NOTE | 2024-11-25 12:36 | ANESTHESIA PROCEDURE NOTE ---
Anesthesia Intubation Template Intubation Blade: positive Glidescope Tube: Size-enter number (7.0) and Cuffed Route: Oral Placement Confirmation: End tidal CO2, Direct visualization, Bilateral breath sounds and Other (pcxr) Complications: No complications
[2024-11-25 13:45] LABS: VBG BASE EXCESS 4.9 mmol/L (-2 - +2); VBG PCO2 43.5 mmHg (41-51); VBG PH 7.433 (7.31-7.41); VBG PO2 126.5 mmHg (25-47); VBG TOTAL CO2 30.7 mmol/L (24-29)
[2024-11-25] MEDS ORDERED: ATROPINE ABBOJECT 1 MG/10 ML SYRINGE IVP PRN ×2 (13:47→14:20)
[2024-11-25] MEDS: HYDROmorphone 0.5 MG/0.5 ML SYRINGE IVP PRN (13:53)
--- NOTE | 2024-11-25 14:00 | CT Report ---
PROCEDURE: CT Angio Chest INDICATIONS: COPD, intubated, hypoxia, r/o PE CONTRAST: omni 300, 80 TECHNIQUE: After the administration of intravenous contrast, 2 mm axial images were acquired from the pulmonary apices to the posterior costophrenic angles during the arterial phase. In addition, 1 mm lung kernel and 5 mm soft tissue kernel reconstructions were performed. 3-dimensional coronal oblique maximum int ensity projection (MIP) reformats, 8 mm axial MIP, and 5 mm coronal and sagittal MPR reformats were t hen performed through the thorax. For radiation dose reduction, the following was used: automated exp osure control, adjustment of mA and/or kV according to patient size. COMPARISON: Radiograph November 25, 2024, CT chest July 16, 2024 FINDINGS: Image quality: Excellent. Enteric tube is appropriately positioned from the thoracic inlet. Enteric tube with side-port within the gastric bubble Large vessels: No filling defects within the opacified pulmonary arteries, accounting for motion and contrast timing. No evidence of acute aortic syndrome or aortic aneurysm. Lungs and pleura: Spiculated nodule within the right upper lobe extending to the pleura similar to co mparison measuring 2 x 1.5 cm with adjacent satellite spiculated nodules. The thyroid nodules along t he inferior margin have slightly more substance and increased conspicuity from comparison. There is v olume loss and retraction. No pleural effusions. No pneumothorax. Mediastinum: Heart size is normal. No pericardial effusion. No large vessel abnormality. No mediastin al adenopathy by size criteria. Coronary artery calcifications. Chest wall and lower neck: Thyroid is unremarkable. No axillary or supraclavicular adenopathy by size . Bones: No aggressive osseous abnormality. Upper Abdomen: Unremarkable. IMPRESSION: No pulmonary embolus. Stable appearance of right upper lobe spiculated nodule. Slight increased prominence of the satellite nodules along the inferior margin. Support devices as above Reviewed by: Dillan Goldstein MD on 11/25/2024 12:59 PM SKY Approved by: Dillan Goldstein MD on 11/25/2024 12:59 PM [email or web address] Station ID: [id number]
[2024-11-25] MEDS: MIDAZOLAM DRIP 50 MG/50 ML 50 MG/50 ML BAG IV SCH (14:11)
--- NOTE | 2024-11-25 14:44 | PROVIDER PROGRESS NOTE ---
Subjective Prog Note Date Prog Note Date: 11/25/24 Prog Note Time: 14:24 Subjective Subjective: Pt used bipap overnight. Anxious this am when bipap was removed. She then remained calm on RA for approx 3 hrs without significant respiratory distress- RR < 30, no increased WOB. Precedex drip was weaned off. Around 45 min later, pt developed acute on set respiratory distress with use of accessory muscles, hypoxia to mid 80s, SOB. Denied CP. She was reintubated by anesthesia for work of breathing. at bedside provided consent for intubation. 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 Upon speaking with this afternoon, he stated pt had made wishes knows to other family members she would not want to be on life support for an extended period of time, and she would not want aggressive or invasive measures in the event of a cardiac arrest. He changed her code status to DNR (ok to intubate). Current Medications Current Medications Current Medications: Current Medications Generic Name Dose Route Start Last Admin Trade Name Freq PRN Reason Stop Dose Admin Acetaminophen 650 mg 11/24/24 09:15 Acetaminophen 325 Mg Tablet PO Q4HR PRN Pain or Fever > 38C (100.4F) Albuterol 2.5 mg 11/23/24 21:23 11/25/24 13:29 Albuterol Neb 2.5 Mg/3 Ml INH 2.5 mg RTQ4H PRN Administration Wheezing Albuterol/Ipratropium 3 ml 11/24/24 11:00 11/25/24 11:36 Ipratropium/Albuterol 3 Ml Neb INH 3 ml RTQ4H LORRAINE Administration Atropine Sulfate 1 mg 11/25/24 14:20 Atropine Abboject 1 Mg/10 Ml Syringe IVP 11/27/24 14:19 ONCE PRN bradycardia Divalproex Sodium 500 mg 11/23/24 09:00 11/25/24 08:[address] 250 Mg Tablet PO 500 mg BID LORRAINE Administration Fluticasone Propionate 1 sprays 11/24/24 12:00 11/25/24 08:24 Fluticasone Nasal [place] CHRISTIANA 1 sprays DAILY LORRAINE Administration Guaifenesin 1,200 mg 11/23/24 21:00 11/25/24 08:24 Guaifenesin 600 Mg Tablet PO 1,200 mg BID LORRAINE Administration Heparin Sodium (Porcine) 5,000 unit 11/23/24 09:00 11/25/24 08:24 Heparin 5,000 Unit/Ml Vial SUBQ 5,000 unit BID LORRAINE Administration Hydromorphone HCl 0.5 mg 11/25/24 12:58 11/25/24 13:53 Hydromorphone 0.5 Mg/0.5 Ml Syringe IVP 0.5 mg Q4H PRN Administration Severe Pain (Level 7-10) Dextrose/Lactated Ringer's 1,000 mls @ 75 mls/hr 11/23/24 15:00 11/25/24 13:10 D5lr IV 75 mls/hr .[id number] LORRAINE Infusion Ceftriaxone Sodium 1 gm/ 100 mls @ 200 mls/hr 11/23/24 20:30 11/25/24 08:46 Sodium Chloride IV Infused DAILY LORRAINE Infusion Dexmedetomidine/Sodium Chloride 100 mls @ 2.875 mls/hr 11/23/24 20:38 11/25/24 13:54 Precedex Premix IV 0.03 mcg/kg/hr .[id number] PRN 0.4 mls/hr Agitation Administration Protocol 0.2 MCG/KG/HR Midazolam HCl 50 mg in 50 mls @ 2.44 mls/hr 11/25/24 13:00 11/25/24 14:11 Versed Drip 50 Mg/50 Ml IV Not Given .[id number] LORRAINE Protocol 0.04 MG/KG/HR Propofol 1,000 mg in 100 mls @ 3.66 mls/hr 11/25/24 13:00 11/25/24 12:25 Diprivan IV 10 mcg/kg/min .[id number] LORRAINE 3.66 mls/hr Administration Protocol 10 MCG/KG/MIN Norepinephrine/Sodium Chloride 8 mg in 250 mls @ 15 mls/hr 11/25/24 13:00 11/25/24 12:50 Levophed 8 Mg/250-0.9% Nacl IV 0 mcg/min .[id number] LORRAINE 0 mls/hr Titration Protocol 8 MCG/MIN Ipratropium [place] 0.5 mg 11/23/24 21:23 11/25/24 00:08 Ipratropium 0.2 Mg/Ml Neb INH 0.5 mg RTQ6H PRN Administration Shortness of Air/Wheezing Levothyroxine Sodium 50 mcg 11/23/24 07:30 11/25/24 06:41 Levothyroxine 25 Mcg Tablet PO 50 mcg 0730 LORRAINE Administration Lorazepam 0.5 mg 11/25/24 15:00 Lorazepam 2 Mg/Ml Vial IVP Q4H LORRAINE Methylprednisolone 60 mg 11/24/24 00:00 11/25/24 11:33 Methylprednisolone Succinate 40 Mg/Ml Vial IVP 60 mg Q6H LORRAINE Administration Ondansetron HCl 4 mg 11/23/24 03:14 Ondansetron 4 Mg/2 Ml Vial IVP Q6HR PRN Nausea / Vomiting Pantoprazole Sodium 40 mg 11/26/24 07:00 Pantoprazole 40 Mg Vial IVP QDAC LORRAINE Sodium Chloride 10 ml 11/23/24 09:00 11/25/24 08:25 Sodium Chloride Flush 0.9% 10 Ml Syringe IVP 10 ml 0100,0900,1700 LORRAINE Administration Sodium Chloride 10 ml 11/23/24 03:09 11/23/24 18:24 Sodium Chloride Flush 0.9% 10 Ml Syringe IVP 10 ml PRN PRN Administration NEEDED PER PROVIDER ORDERS Tramadol HCl 25 mg 11/24/24 09:15 11/25/24 10:10 Tramadol 50 Mg Tablet PO 25 mg Q6HR PRN Administration Moderate Pain (Level 4-6) Objective Vital Signs/Intake & Output Reviewed Vital Signs: Yes Vital Signs: Vital Signs x48h Temp Pulse Pulse Resp BP Pulse Ox O2 Flow Rate 11/25/24 14:00 84 18 137/71 H 97 11/25/24 13:29 88 16 11/25/24 13:01 100 11/25/24 13:00 94 16 100/59 L 98 11/25/24 12:00 36.9 C 136 H 34 H 208/130 H 92 4 11/25/24 11:37 92 28 H 11/25/24 11:00 88 21 113/69 94 11/25/24 10:00 91 23 108/64 94 11/25/24 09:00 77 23 137/83 H 96 11/25/24 08:47 1 11/25/24 08:00 35.9 C L 71 22 127/76 95 11/25/24 07:07 64 20 11/25/24 07:07 66 11/25/24 07:00 1 11/25/24 07:00 64 21 156/90 H 96 Intake & Output: Intake & Output 11/22/24 11/23/24 11/24/24 11/25/24 23:59 23:59 23:59 23:59 Intake Total 1007 / 1007 1118 / 1118 2741 / 2741 2447 / 2447 Output Total 423 / 423 1031 / 1031 411 / 411 Balance 1007 / 1007 695 / 695 1710 / 1710 2035 / 2035 Weight (kg) 57.2 kg 57.5 kg 58.5 kg 61 kg Objective Comments/Other: elderly woman lying in bed, NAD, sclera anicteric, MMM Lungs: poor air entry, scattered bilateral crackles and wheezes, weak cough. re-exam prior to intubation: severe wheeze bilat, very poor air entry, accessory muscle use, RRR, S1S2, no edema abd soft, NT, ND, BS+ alert, follows commands, strength 5/5 UE and LE justice Lab Results 11/25/24 04:22 11/25/24 04:22 Other Labs: Lab Results x24hrs 11/25/24 11/25/24 11/24/24 Range/Units 13:06 04:22 17:16 WBC 14.6 H (4.8-10.8) x10^3/uL RBC 4.30 (4.20-5.40) 10^6/uL Hgb 12.6 (12.0-16.0) g/dL Hct 38.8 (37.0-47.0) % MCV 90.2 (81.0-99.0) fL MCH 29.3 (27.0-31.0) pg MCHC 32.5 (32.0-36.0) g/dL RDW 13.0 (12.0-15.0) % Plt Count 223 (130-450) 10^3/uL MPV 12.1 H (7.9-10.8) fL Neut # (Auto) 13.7 H (1.5-6.6) 10^3/uL Lymph # (Auto) 0.3 L (1.5-3.5) 10^3/uL Hand # (Auto) 0.4 (0.0-1.0) 10^3/uL Eos # (Auto) 0.0 (0.0-0.7) 10^3/uL Baso # (Auto) 0.0 (0.0-0.1) 10^3/uL Absolute Nucleated RBC 0.00 x10^3/uL Nucleated RBC % 0.0 /100WBC VBG pH 7.433 H 7.477 H 7.455 H (7.31-7.41) VBG pCO2 43.5 42.4 46.2 (41-51) mmHg VBG pO2 126.5 H 127.6 H 74.4 H (25-47) mmHg VBG HCO3 29.4 H 31.6 H 32.8 H (23-28) mmol/L VBG Total CO2 30.7 H 32.9 H 34.2 H (24-29) mmol/L VBG O2 Saturation 100.0 H 99.0 H 94.0 H (60-80) % VBG Base Excess 4.9 H 7.9 H 8.7 H (-2 - +2) mmol/L Sodium 134 L (135-145) mmol/L Potassium 4.4 (3.5-4.5) mmol/L Chloride 99 L (101-111) mmol/L Carbon Dioxide 31 (21-32) mmol/L Anion Gap 4.0 L (6-13) BUN 15 (6-20) mg/dL Creatinine 0.4 L (0.6-1.3) mg/dL Estimated GFR (MDRD) 155 (>89) Glucose 163 H (74-104) mg/dL Calcium 8.3 L (8.5-10.3) mg/dL Phosphorus 3.1 (2.5-5.0) mg/dL Magnesium 2.0 (1.7-2.3) mg/dL Troponin I High Sens 13.3 (2.3-14.8) ng/L Sepsis Event Note (H) Evaluation Current Stage of Sepsis: Sepsis Possible source of Sepsis: positive Pulmonary Sepsis Criteria Sepsis Criteria: Suspected or Documented, Recorded Heart Rate greater than 90 bpm, Recorded Respiratory Rate greater than 20 and WBC count greater than 12,000 or less than 4000 Assessment/Plan Problem List (1) COPD (chronic obstructive pulmonary disease): Impression: 78 yo F with pmhx of COPD, RUL small cell lung Ca (dx approx 1 yr ago, s/p 5 doses of radiation), GERD, bipolar d/o presenting with SOB, hypoxia to 80s, agitation, confusion. Intubated for airway protection in the ED. 1. COPD exacerbation, acute hypoxic respiratory failure, parainfluenza infection, r/o bacterial pneumonia: Pt was intubated on admission 11/22/24, extubated in afternoon 11/23/24. Remained on intermittent BiPAP, HFNC, several hours on RA yesterday. Episode of acutely worse respiratory distress today- ddx includes severe bronchospasm in setting of paraflu infection and cancer, PE (ruled out on CTA). No evidence for cardiac event. Trop 13. She is getting high dose iv steroids, antibiotics, scheduled nebs q 4 hrs. No signs of bacterial pneumonia on CT. Comfortable now on vent with low FiO2 requirement (25%). - scheduled nebs q 4 hr, solumedrol 40 iv q 6, - CTX, azithro - goal sat 88-94%, - propofol, lorazepam 0.5 mg iv q 4 hrs, precedex for sedation - dilaudid prn pain - pt does not have advanced COPD- not on home O2, CT without severe emphysema. 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 2. hypotension, bradycardia: pt hypotensive for short time after intubation, likely due to sedatives. She required norepinephrine for a short time and then BP stabilized. She had episode of bradycardia to 40 which also recovered with norepinephrine. She was partially awake and fighting the vent a bit during this period, so suspect it was a vasovagal event. Discussed sedatives with anesthesiology. - atropine prn for HR < 40 - norepinephrine drip prn to keep MAP > 65 3. toxic/metabolic encephalopathy: due to hypoxia, infection, bipolar d/o. - monitor - attempt to limit benzos and opioids 4. hypophosphatemia: normalized after supplements. - monitor, replete prn 5. RUL small cell lung Ca: s/p radiation treatment 1 yr ago. - monitor dvt ppx: [facility] iv ppi for GI ppx OG tube- tube feeds if she remains intubated justice for critical illness Dispo plan and GOC: Lives at home with . Pulm: Dr. Zaldivar in [place] Rad-onc: Williams RODAS? Leela Jay in [place] DNR (ok to intubated)- discussed GOC with
[2024-11-25] MEDS: LORazepam 2 MG/ML VIAL IVP SCH (15:24)
[2024-11-25] MEDS: FORMOTEROL FUMARATE NEB 20 MCG/2 ML INH SCH (19:34)
[2024-11-26 04:55] LABS: BASOPHILS % (AUTO) 0.2 %; HCT - HEMATOCRIT 40.5 % (37.0-47.0); HGB - HEMOGLOBIN 13.2 g/dL (12.0-16.0); LYMPHOCYTES # (AUTO) 0.3 10^3/uL (1.5-3.5); LYMPHOCYTES % (AUTO) 2.8 %; MEAN CORPUSCULAR HEMOGLOBIN 29.2 pg (27.0-31.0); MEAN CORPUSCULAR HGB CONC 32.6 g/dL (32.0-36.0); MEAN CORPUSCULAR VOLUME 89.6 fL (81.0-99.0); MEAN PLATELET VOLUME 11.9 fL (7.9-10.8); MONOCYTES # (AUTO) 0.6 10^3/uL (0.0-1.0); NEUTROPHILS # (AUTO) 10.7 10^3/uL (1.5-6.6); NEUTROPHILS % (AUTO) 90.2 %; PLT - PLATELET COUNT 245 10^3/uL (130-450); RED BLOOD COUNT 4.52 10^6/uL (4.20-5.40); RED CELL DISTRIBUTION WIDTH 13.2 % (12.0-15.0); WHITE BLOOD COUNT 11.8 x10^3/uL (4.8-10.8)
[2024-11-26 05:14] LABS: VBG BASE EXCESS 13.3 mmol/L (-2 - +2); VBG PCO2 37.9 mmHg (41-51); VBG PH 7.575 (7.31-7.41); VBG PO2 140.8 mmHg (25-47); VBG TOTAL CO2 36.6 mmol/L (24-29)
[2024-11-26 05:18] LABS: PHOSPHORUS 2.4 mg/dL (2.5-5.0)
[2024-11-26 05:39] LABS: CALCIUM 8.3 mg/dL (8.5-10.3); CREATININE 0.5 mg/dL (0.6-1.3); POTASSIUM 4.3 mmol/L (3.5-4.5)
[2024-11-26] MEDS: NEUTRA-PHOS 250 MG TABLET PO SCH (06:13)
[2024-11-26] MEDS: PANTOPRAZOLE 40 MG VIAL IVP SCH (06:36)
[2024-11-26 07:16] LABS: ABG BASE EXCESS 11.3 mmol/L (-2.0-3.0); ABG OXYGEN SATURATION 99 % (95-98); ABG PCO2 41 mmHg (34-45); ABG PH 7.53 (7.35-7.45); ABG PO2 105 mmHg (83-108); ABG TCO2 35.5 mmol/L (21.0-29.0)
[2024-11-26 07:17] LABS: ABG HCO3 34.2 mmol/L (22.0-26.0); ABG MODE OF VENTILATION SIMV; ABG RESPIRATORY RATE 16 b/min; ALLEN TEST POSITIVE
[2024-11-26] MEDS: POTASSIUM PHOSPHATE 15 MMOL in SODIUM CHLORIDE 0.9% 250 ML IV ONE (14:19)
[2024-11-26] MEDS: IPRATROPIUM/ALBUTEROL 3 ML NEB INH SCH (14:56)
--- NOTE | 2024-11-26 16:32 | PROVIDER PROGRESS NOTE ---
Subjective Prog Note Date Prog Note Date: 11/26/24 Prog Note Time: 16:30 Subjective Subjective: intubated, sedated. Stable overnight on low vent settings. No further episodes of bradycardia or hypotension. Current Medications Current Medications Current Medications: Current Medications Generic Name Dose Route Start Last Admin Trade Name Freq PRN Reason Stop Dose Admin Acetaminophen 650 mg 11/24/24 09:15 Acetaminophen 325 Mg Tablet PO Q4HR PRN Pain or Fever > 38C (100.4F) Albuterol 2.5 mg 11/23/24 21:23 11/25/24 13:29 Albuterol Neb 2.5 Mg/3 Ml INH 2.5 mg RTQ4H PRN Administration Wheezing Albuterol/Ipratropium 3 ml 11/26/24 15:00 11/26/24 14:56 Ipratropium/Albuterol 3 Ml Neb INH 3 ml RTQ4H LORRAINE Administration Atropine Sulfate 1 mg 11/25/24 14:20 Atropine Abboject 1 Mg/10 Ml Syringe IVP 11/27/24 14:19 ONCE PRN bradycardia Fluticasone Propionate 1 sprays 11/24/24 12:00 11/26/24 09:50 Fluticasone Nasal [place] CHRISTIANA 1 sprays DAILY LORRAINE Administration Formoterol Fumarate 20 mcg 11/25/24 19:00 11/26/24 07:42 Formoterol Fumarate Neb 20 Mcg/2 Ml INH 20 mcg RTBID LORRAINE Administration Guaifenesin 400 mg 11/26/24 21:00 Guaifenesin 100 Mg/5 Ml Udc PO Q4HR LORRAINE Heparin Sodium (Porcine) 5,000 unit 11/23/24 09:00 11/26/24 09:20 Heparin 5,000 Unit/Ml Vial SUBQ 5,000 unit BID LORRAINE Administration Hydromorphone HCl 0.5 mg 11/25/24 12:58 11/25/24 13:53 Hydromorphone 0.5 Mg/0.5 Ml Syringe IVP 0.5 mg Q4H PRN Administration Severe Pain (Level 7-10) Ceftriaxone Sodium 1 gm/ 100 mls @ 200 mls/hr 11/23/24 20:30 11/26/24 09:21 Sodium Chloride IV 200 mls/hr DAILY LORRAINE Administration Dexmedetomidine/Sodium Chloride 100 mls @ 2.875 mls/hr 11/23/24 20:38 11/26/24 06:23 Precedex Premix IV 0.4 mcg/kg/hr .[id number] PRN 5.75 mls/hr Agitation Administration Protocol 0.2 MCG/KG/HR Propofol 1,000 mg in 100 mls @ 3.66 mls/hr 11/25/24 13:00 11/26/24 06:22 Diprivan IV 15 mcg/kg/min .[id number] LORRAINE 5.49 mls/hr Administration Protocol 10 MCG/KG/MIN Potassium Phosphate 15 mmol/ 255 mls @ 42.5 mls/hr 11/26/24 11:40 11/26/24 14:19 Sodium Chloride IV 11/26/24 17:39 42.5 mls/hr ONCE ONE Administration Ipratropium [place] 0.5 mg 11/23/24 21:23 11/25/24 00:08 Ipratropium 0.2 Mg/Ml Neb INH 0.5 mg RTQ6H PRN Administration Shortness of Air/Wheezing Levothyroxine Sodium 50 mcg 11/23/24 07:30 11/26/24 06:36 Levothyroxine 25 Mcg Tablet PO 50 mcg 0730 LORRAINE Administration Lorazepam 0.5 mg 11/25/24 15:00 11/26/24 14:20 Lorazepam 2 Mg/Ml Vial IVP 0.5 mg Q4H LORRAINE Administration Methylprednisolone 60 mg 11/24/24 00:00 11/26/24 11:52 Methylprednisolone Succinate 40 Mg/Ml Vial IVP 60 mg Q6H LORRAINE Administration Ondansetron HCl 4 mg 11/23/24 03:14 Ondansetron 4 Mg/2 Ml Vial IVP Q6HR PRN Nausea / Vomiting Pantoprazole Sodium 40 mg 11/26/24 07:00 11/26/24 06:36 Pantoprazole 40 Mg Vial IVP 40 mg QDAC LORRAINE Administration Sodium Chloride 10 ml 11/23/24 09:00 11/26/24 14:20 Sodium Chloride Flush 0.9% 10 Ml Syringe IVP 10 ml 0100,0900,1700 LORRAINE Administration Sodium Chloride 10 ml 11/23/24 03:09 11/23/24 18:24 Sodium Chloride Flush 0.9% 10 Ml Syringe IVP 10 ml PRN PRN Administration NEEDED PER PROVIDER ORDERS Tramadol HCl 25 mg 11/24/24 09:15 11/25/24 10:10 Tramadol 50 Mg Tablet PO 25 mg Q6HR PRN Administration Moderate Pain (Level 4-6) Valproic Acid 250 mg 11/26/24 21:00 Valproate 250 Mg/5 Ml Solution Udc PO QID LORRAINE Objective Vital Signs/Intake & Output Reviewed Vital Signs: Yes Vital Signs: Vital Signs x48h Temp Pulse Pulse Resp BP Pulse Ox 11/26/24 16:00 36.8 C 62 14 145/77 H 98 11/26/24 15:00 69 14 120/74 100 11/26/24 15:00 64 11/26/24 14:58 67 14 11/26/24 14:00 64 14 127/74 98 11/26/24 13:00 69 14 121/70 98 11/26/24 12:00 74 12 108/69 98 11/26/24 11:00 77 14 136/79 H 98 11/26/24 10:13 72 11/26/24 10:13 76 14 11/26/24 10:00 72 14 145/74 H 98 11/26/24 09:00 76 12 130/82 98 Intake & Output: Intake & Output 11/23/24 11/24/24 11/25/24 11/26/24 23:59 23:59 23:59 23:59 Intake Total 1118 / 1118 2741 / 2741 3255 / 3255 1150 / 1150 Output Total 423 / 423 1031 / 1031 866 / 866 572 / 572 Balance 695 / 695 1710 / 1710 2389 / 2389 578 / 578 Weight (kg) 57.5 kg 58.5 kg 61 kg 61 kg Objective Comments/Other: elderly woman lying in bed, NAD, sclera anicteric, MMM Lungs: diminished air entry at bases, scattered bilateral crackles and wheezes, improved RRR, S1S2, no edema abd soft, NT, ND, BS+ sedated, slight eye opening to voice, calm, comfortable appearing justice Lab Results 11/26/24 04:49 11/26/24 04:49 Other Labs: Lab Results x24hrs 11/26/24 11/26/24 Range/Units 07:00 04:49 WBC 11.8 H (4.8-10.8) x10^3/uL RBC 4.52 (4.20-5.40) 10^6/uL Hgb 13.2 (12.0-16.0) g/dL Hct 40.5 (37.0-47.0) % MCV 89.6 (81.0-99.0) fL MCH 29.2 (27.0-31.0) pg MCHC 32.6 (32.0-36.0) g/dL RDW 13.2 (12.0-15.0) % Plt Count 245 (130-450) 10^3/uL MPV 11.9 H (7.9-10.8) fL Neut # (Auto) 10.7 H (1.5-6.6) 10^3/uL Lymph # (Auto) 0.3 L (1.5-3.5) 10^3/uL [place] # (Auto) 0.6 (0.0-1.0) 10^3/uL Eos # (Auto) 0.0 (0.0-0.7) 10^3/uL Baso # (Auto) 0.0 (0.0-0.1) 10^3/uL Absolute Nucleated RBC 0.00 x10^3/uL Nucleated RBC % 0.0 /100WBC Bld Gas Analysis Time 0710 Sample Site LEFT RADIAL ABG pH 7.53 H (7.35-7.45) ABG pCO2 41 (34-45) mmHg ABG pO2 105 (83-108) mmHg ABG HCO3 34.2 H (22.0-26.0) mmol/L ABG Total CO2 35.5 H (21.0-29.0) mmol/L ABG O2 Saturation 99 H (95-98) % ABG Base Excess 11.3 H (-2.0-3.0) mmol/L Dilip Test POSITIVE VBG pH 7.575 H (7.31-7.41) VBG pCO2 37.9 L (41-51) mmHg VBG pO2 140.8 H (25-47) mmHg VBG HCO3 35.4 H (23-28) mmol/L VBG Total CO2 36.6 H (24-29) mmol/L VBG O2 Saturation 100.0 H (60-80) % VBG Base Excess 13.3 H (-2 - +2) mmol/L Respiration Rate 16 b/min O2 Delivery Device VENTILATOR Vent Mode SIMV FiO2 25.00 Tidal Volume 350 mL PEEP 5 cmH2O Pressure Support Vent 16 cmH2O Sodium 133 L (135-145) mmol/L Potassium 4.3 (3.5-4.5) mmol/L Chloride 99 L (101-111) mmol/L Carbon Dioxide 27 (21-32) mmol/L Anion Gap 7.0 (6-13) BUN 15 (6-20) mg/dL Creatinine 0.5 L (0.6-1.3) mg/dL Estimated GFR (MDRD) 120 (>89) Glucose 178 H (74-104) mg/dL Calcium 8.3 L (8.5-10.3) mg/dL Phosphorus 2.4 L (2.5-5.0) mg/dL Magnesium 2.0 (1.7-2.3) mg/dL Sepsis Event Note (H) Evaluation Current Stage of Sepsis: Sepsis Possible source of Sepsis: positive Pulmonary Sepsis Criteria Sepsis Criteria: Suspected or Documented, Recorded Heart Rate greater than 90 bpm, Recorded Respiratory Rate greater than 20 and WBC count greater than 12,000 or less than 4000 Assessment/Plan Problem List (1) COPD (chronic obstructive pulmonary disease): Impression: 78 yo F with pmhx of COPD, RUL small cell lung Ca (dx approx 1 yr ago, s/p 5 doses of radiation), GERD, bipolar d/o presenting with SOB, hypoxia to 80s, agitation, confusion. Intubated for airway protection in the ED. 1. COPD exacerbation, acute hypoxic respiratory failure, parainfluenza infection, r/o bacterial pneumonia: Pt was intubated on admission 11/22/24, extubated in afternoon 11/23/24. Episode of acutely worse respiratory distress 11/25/24 and reintubated. Discussed case with her pulmonlogist Dr. Alfonzo Zaldivar ([place]) and he noted pt has severe COPD. She has been on chronic prednisone 15 mg q day since at least February 2024 and is on aggressive inhaler therapy. Not on home O2. She has misses several appts with Dr. Zaldivar and has no PFTs on file. Given severity of underlying lung disease, her course of prolonged dyspnea, bronchospasm, increased WOB is expected with parainfluenza infection. 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 Or myopathy from chronic steroid use leading to poor respiratory muscle effort. - scheduled nebs q 4 hr, solumedrol 40 iv q 6, - CTX x 5 days. Finished azithromycin course. - goal sat 88-94%, - propofol, lorazepam 0.5 mg iv q 4 hrs, precedex for sedation - dilaudid prn pain 2. hypotension, bradycardia: pt hypotensive for short time after intubation, likely due to sedatives. She required norepinephrine for a short time and then BP stabilized. She had episode of bradycardia to 40 which also recovered with norepinephrine. She was partially awake and fighting the vent a bit during this period, so suspect it was a vasovagal event. No further events overnight and has been off norepinephrine for > 12 hrs. - d/c norepi and monitor 3. toxic/metabolic encephalopathy: due to hypoxia, infection, bipolar d/o. - monitor - attempt to limit benzos and opioids 4. hypophosphatemia: - monitor, replete prn 5. RUL small cell lung Ca: s/p radiation treatment 1 yr ago. - monitor dvt ppx: SQH iv ppi for GI ppx OG tube- start tube feeds. Appreciate nutrition input. justice for critical illness Dispo plan and GOC: Lives at home with . Pulm: Dr. Zaldivar in [place] Rad-onc: Williams RODAS? Leela Jay in [place] DNR (ok to intubated)
[2024-11-26] MEDS ORDERED: LACTATED RINGERS 1,000 ML ONE (20:05)
[2024-11-26] MEDS: LACTATED RINGERS 500 ML IV ONE (20:13)
[2024-11-26] MEDS: guaiFENesin 100 MG/5 ML UDC PO SCH (20:40)
[2024-11-26] MEDS: VALPROATE 250 MG/5 ML SOLUTION UDC PO SCH (20:42)
[2024-11-27 04:57] LABS: VBG BASE EXCESS 9.5 mmol/L (-2 - +2); VBG PCO2 41.8 mmHg (41-51); VBG PO2 101.5 mmHg (25-47); VBG TOTAL CO2 34.2 mmol/L (24-29)
[2024-11-27 04:58] LABS: BASOPHILS % (AUTO) 0.3 %; HCT - HEMATOCRIT 38.3 % (37.0-47.0); HGB - HEMOGLOBIN 12.6 g/dL (12.0-16.0); LYMPHOCYTES # (AUTO) 0.2 10^3/uL (1.5-3.5); LYMPHOCYTES % (AUTO) 1.5 %; MEAN CORPUSCULAR HEMOGLOBIN 29.2 pg (27.0-31.0); MEAN CORPUSCULAR HGB CONC 32.9 g/dL (32.0-36.0); MEAN CORPUSCULAR VOLUME 88.7 fL (81.0-99.0); MEAN PLATELET VOLUME 12.5 fL (7.9-10.8); MONOCYTES # (AUTO) 0.8 10^3/uL (0.0-1.0); MONOCYTES % (AUTO) 5.4 %; NEUTROPHILS # (AUTO) 13.9 10^3/uL (1.5-6.6); NRBC ABSOLUTE COUNT (AUTO) 0.02 x10^3/uL; NUCLEATED RED BLOOD CELLS AUTO 0.1 /100WBC; PLT - PLATELET COUNT 264 10^3/uL (130-450); RED BLOOD COUNT 4.32 10^6/uL (4.20-5.40); RED CELL DISTRIBUTION WIDTH 13.4 % (12.0-15.0); WHITE BLOOD COUNT 15.5 x10^3/uL (4.8-10.8)
[2024-11-27 05:10] LABS: ALBUMIN 2.8 g/dL (3.2-5.5); ALBUMIN/GLOBULIN RATIO 1.6 (1.0-2.2); BILIRUBIN,TOTAL 0.4 mg/dL (0.2-1.0); CALCIUM 8.3 mg/dL (8.5-10.3); CREATININE 0.5 mg/dL (0.6-1.3); TOTAL PROTEIN 4.5 g/dL (6.4-8.9)
[2024-11-27 05:25] LABS: MAGNESIUM 2.1 mg/dL (1.7-2.3); PHOSPHORUS 3.2 mg/dL (2.5-5.0)
[2024-11-27] MEDS: NOREPINEPHRINE/0.9 % NS 8 MG/250 ML BAG IV SCH (06:38)
--- NOTE | 2024-11-27 09:01 | XRAY Report ---
PROCEDURE: XR Chest 1V INDICATIONS: intubated, COPD TECHNIQUE: One view of the chest was acquired. COMPARISON: 11/25/2024. FINDINGS: Surgical changes and devices: ET tube tip is at the level of candelario. NG tube tip is below the left h emidiaphragm and is in the expected location of stomach lumen. Lungs and pleura: No pleural effusions or pneumothorax. Ill-defined airspace opacity in right upper lung field is seen. Mediastinum: Mediastinal contours appear normal. Heart size is normal. Bones and chest wall: No suspicious bony lesions. Overlying soft tissues appear unremarkable. IMPRESSION: Right upper lobe scarring/atelectasis versus small infiltrate not significantly changed from previous study. No new airspace opacities. No pleural effusion or pneumothorax. Reviewed by: Hugo Mendes MD on 11/27/2024 8:59 AM PDT Approved by: Hugo Mendes MD on 11/27/2024 8:59 AM PDT Station ID: [id number]
--- NOTE | 2024-11-27 09:32 | PROVIDER PROGRESS NOTE ---
Subjective Subjective Subjective: Patient appears calm this morning. She is intubated and sedated. We wean the sedation, and trialed the SBT. When awake, she gets very anxious and agitated, which resulted in tachypnea and difficulty breathing. Started her back on Precedex at a low dose, and she is tolerating the wean a little bit better. Will likely wean to exercise today, and then trial another spontaneous breathing trial tomorrow morning, in hopes of extubation. I spoke with her at bedside about her overall goals of care. He states that she was diagnosed with lung cancer about a year ago. She received 5 days of radiation, and was told that the masses had shrunk in size. She never received chemotherapy. She has not followed up with her oncologist in a few months. She has 1 adult daughter that lives in [place]. The and the daughter spoke about the patient's overall goals of care, know that she would not have wanted anything aggressive. She is a DO NOT RESUSCITATE. The patient is still actively smoking, but does not require home oxygen at home at baseline. Current Medications Current Medications Current Medications: Current Medications Generic Name Dose Route Start Last Admin Trade Name Freq PRN Reason Stop Dose Admin Acetaminophen 650 mg 11/24/24 09:15 Acetaminophen 325 Mg Tablet PO Q4HR PRN Pain or Fever > 38C (100.4F) Albuterol 2.5 mg 11/23/24 21:23 11/25/24 13:29 Albuterol Neb 2.5 Mg/3 Ml INH 2.5 mg RTQ4H PRN Administration Wheezing Albuterol/Ipratropium 3 ml 11/26/24 15:00 11/27/24 07:02 Ipratropium/Albuterol 3 Ml Neb INH 3 ml RTQ4H LORRAINE Administration Fluticasone Propionate 1 sprays 11/24/24 12:00 11/27/24 07:58 Fluticasone Nasal [place] CHRISTIANA Not Given DAILY LORRAINE Formoterol Fumarate 20 mcg 11/25/24 19:00 11/27/24 07:02 Formoterol Fumarate Neb 20 Mcg/2 Ml INH 20 mcg RTBID LORRAINE Administration Guaifenesin 400 mg 11/26/24 21:00 11/27/24 05:00 Guaifenesin 100 Mg/5 Ml Udc PO Not Given Q4HR LORRAINE Heparin Sodium (Porcine) 5,000 unit 11/23/24 09:00 11/27/24 08:04 Heparin 5,000 Unit/Ml Vial SUBQ 5,000 unit BID LORRAINE Administration Hydromorphone HCl 0.5 mg 11/25/24 12:58 11/25/24 13:53 Hydromorphone 0.5 Mg/0.5 Ml Syringe IVP 0.5 mg Q4H PRN Administration Severe Pain (Level 7-10) Ceftriaxone Sodium 1 gm/ 100 mls @ 200 mls/hr 11/23/24 20:30 11/27/24 08:03 Sodium Chloride IV 200 mls/hr DAILY LORRAINE Administration Dexmedetomidine/Sodium Chloride 100 mls @ 2.875 mls/hr 11/23/24 20:38 11/27/24 06:33 Precedex Premix IV 0.2 mcg/kg/hr .[id number] PRN 2.88 mls/hr Agitation Titration Protocol 0.2 MCG/KG/HR Propofol 1,000 mg in 100 mls @ 3.66 mls/hr 11/25/24 13:00 11/27/24 00:24 Diprivan IV 20 mcg/kg/min .[id number] LORRAINE 7.32 mls/hr Titration Protocol 10 MCG/KG/MIN Norepinephrine/Sodium Chloride 8 mg in 250 mls @ 15 mls/hr 11/26/24 20:00 11/27/24 06:38 Levophed 8 Mg/250-0.9% Nacl IV Not Given .[id number] LORRAINE Protocol 8 MCG/MIN Ipratropium [place] 0.5 mg 11/23/24 21:23 11/25/24 00:08 Ipratropium 0.2 Mg/Ml Neb INH 0.5 mg RTQ6H PRN Administration Shortness of Air/Wheezing Levothyroxine Sodium 50 mcg 11/23/24 07:30 11/27/24 06:33 Levothyroxine 25 Mcg Tablet PO 50 mcg 0730 LORRAINE Administration Lorazepam 0.5 mg 11/25/24 15:00 11/27/24 07:06 Lorazepam 2 Mg/Ml Vial IVP 0.5 mg Q4H LORRAINE Administration Methylprednisolone 60 mg 11/24/24 00:00 11/27/24 06:33 Methylprednisolone Succinate 40 Mg/Ml Vial IVP 60 mg Q6H LORRAINE Administration Ondansetron HCl 4 mg 11/23/24 03:14 Ondansetron 4 Mg/2 Ml Vial IVP Q6HR PRN Nausea / Vomiting Pantoprazole Sodium 40 mg 11/26/24 07:00 11/27/24 06:33 Pantoprazole 40 Mg Vial IVP 40 mg QDAC LORRAINE Administration Sodium Chloride 10 ml 11/23/24 09:00 11/27/24 08:04 Sodium Chloride Flush 0.9% 10 Ml Syringe IVP 10 ml 0100,0900,1700 LORRAINE Administration Sodium Chloride 10 ml 11/23/24 03:09 11/27/24 07:06 Sodium Chloride Flush 0.9% 10 Ml Syringe IVP 10 ml PRN PRN Administration NEEDED PER PROVIDER ORDERS Tramadol HCl 25 mg 11/24/24 09:15 11/25/24 10:10 Tramadol 50 Mg Tablet PO 25 mg Q6HR PRN Administration Moderate Pain (Level 4-6) Valproic Acid 250 mg 11/26/24 21:00 11/27/24 08:03 Valproate 250 Mg/5 Ml Solution Udc PO 250 mg QID LORRAINE Administration Objective Vital Signs/Intake & Output Reviewed Vital Signs: Yes Vital Signs: Vital Signs x48h Temp Pulse Pulse Resp BP Pulse Ox 11/27/24 09:13 90 11/27/24 08:00 98.8 F 89 16 97/64 96 11/27/24 07:18 94 14 11/27/24 07:02 97 11/27/24 07:00 96 24 126/78 94 11/27/24 06:00 98.2 F 91 17 112/73 96 11/27/24 05:48 95 11/27/24 05:00 94 19 125/72 96 11/27/24 04:33 94 11/27/24 04:00 96 19 115/70 96 11/27/24 03:00 111 H 27 H 101/65 96 11/27/24 02:30 105 H 11/27/24 02:15 110/63 11/27/24 02:00 102 H 20 131/67 H 94 Intake & Output: Intake & Output 11/24/24 11/25/24 11/26/24 11/27/24 23:59 23:59 23:59 23:59 Intake Total 2741 / 2741 3255 / 3255 3557 / 3557 885 / 885 Output Total 1031 / 1031 866 / 866 943 / 943 497 / 497 Balance 1710 / 1710 2389 / 2389 2614 / 2614 388 / 388 Weight (kg) 58.5 kg 61 kg 61 kg 62.5 kg Objective General Appearance: positive No acute distress and Other (Intubated, sedated); negative Alert Eyes Bilateral: positive Normal inspection, PERRL and EOMI ENT: positive ENT inspection nml, Pharynx nml and No signs of dehydration Neck: positive Nml inspection, Thyroid nml and No JVD Respiratory: positive Chest non-tender and Other (Patient is intubated, on minimal settings. Diminished air entry bilaterally, minimal expiratory wheezing. No crackles or rales heard.) Cardiovascular: positive Regular rate & rhythm and No murmur; negative Tachycardia or Bradycardia Abdomen: positive Non-tender and No organomegaly; negative Guarding, Rebound, Hepatomegaly, Splenomegaly or Mass Back: positive Nml inspection; negative CVA tenderness (R) or CVA tenderness (L) Skin: positive Color nml, No rash, Warm and Dry Extremities: positive Non-tender, Full ROM and No pedal edema Neurologic/Psychiatric: positive Other (Sedated, awakens to voice when on sedation holiday) Lab Results 11/27/24 04:47 11/27/24 04:47 Other Labs: Lab Results x24hrs 11/27/24 11/27/24 11/26/24 Range/Units 04:47 00:04 18:21 WBC 15.5 H (4.8-10.8) x10^3/uL RBC 4.32 (4.20-5.40) 10^6/uL Hgb 12.6 (12.0-16.0) g/dL Hct 38.3 (37.0-47.0) % MCV 88.7 (81.0-99.0) fL MCH 29.2 (27.0-31.0) pg MCHC 32.9 (32.0-36.0) g/dL RDW 13.4 (12.0-15.0) % Plt Count 264 (130-450) 10^3/uL MPV 12.5 H (7.9-10.8) fL Neut # (Auto) 13.9 H (1.5-6.6) 10^3/uL Lymph # (Auto) 0.2 L (1.5-3.5) 10^3/uL [place] # (Auto) 0.8 (0.0-1.0) 10^3/uL Eos # (Auto) 0.0 (0.0-0.7) 10^3/uL Baso # (Auto) 0.0 (0.0-0.1) 10^3/uL Absolute Nucleated RBC 0.02 x10^3/uL Nucleated RBC % 0.1 /100WBC VBG pH 7.500 H (7.31-7.41) VBG pCO2 41.8 (41-51) mmHg VBG pO2 101.5 H (25-47) mmHg VBG HCO3 32.9 H (23-28) mmol/L VBG Total CO2 34.2 H (24-29) mmol/L VBG O2 Saturation 99.0 H (60-80) % VBG Base Excess 9.5 H (-2 - +2) mmol/L Sodium 136 (135-145) mmol/L Potassium 4.0 (3.5-4.5) mmol/L Chloride 100 L (101-111) mmol/L Carbon Dioxide 31 (21-32) mmol/L Anion Gap 5.0 L (6-13) BUN 21 H (6-20) mg/dL Creatinine 0.5 L (0.6-1.3) mg/dL Estimated GFR (MDRD) 120 (>89) Glucose 170 H (74-104) mg/dL POC Whole Bld Glucose 155 161 (70-100) mg/dL Calcium 8.3 L (8.5-10.3) mg/dL Phosphorus 3.2 (2.5-5.0) mg/dL Magnesium 2.1 (1.7-2.3) mg/dL Total Bilirubin 0.4 (0.2-1.0) mg/dL AST 21 (10-42) IU/L ALT 32 (10-60) IU/L Alkaline Phosphatase 50 (42-121) IU/L Total Protein 4.5 L (6.4-8.9) g/dL Albumin 2.8 L (3.2-5.5) g/dL Globulin 1.7 L (2.1-4.2) g/dL Albumin/Globulin Ratio 1.6 (1.0-2.2) Prealbumin 30 (17-34) mg/dL Diagnostic Imaging Diagnostic Imaging Results: positive Final report reviewed Sepsis Event Note (H) Evaluation Current Stage of Sepsis: Sepsis Possible source of Sepsis: positive Pulmonary Sepsis Criteria Sepsis Criteria: Suspected or Documented, Recorded Heart Rate greater than 90 bpm, Recorded Respiratory Rate greater than 20 and WBC count greater than 12,000 or less than 4000 Assessment/Plan Problem List (1) Acute hypoxic respiratory failure: Impression: Patient presented with fatigue, weakness, as well as tachypnea. Respiratory viral panel positive for parainfluenza. CTA done showed no pulmonary embolus, stable appearance of right upper lobe spiculated nodules as well as slightly increased prominence of satellite nodules along inferior margin. No pneumothorax, pleural effusions, or consolidations were seen. Patient was intubated on admission 11/22, extubated in the afternoon of 11/23, and then subsequently reintubated on 11/25. Today patient has poor air entry, and some mild wheezing noted. She remains intubated and sedated. We did trial a SBT this morning, but patient became tachypneic and agitated. Will trial again tomorrow morning, 11/28. Will leave the Precedex on for the next trial. Continue scheduled DuoNebs every 4 hours, Solu-Medrol 40 mg every 6 hours. Continue ceftriaxone for possible superimposed community-acquired pneumonia, today is day [address] Alfonzo Zaldivar, her soliciting freight agent was spoken with, and he notes that patient has severe COPD, and is on chronic prednisone therapy daily. (2) COPD (chronic obstructive pulmonary disease): Impression: See above. Qualifiers: COPD type: unspecified COPD Qualified Code(s): J44.9 - Chronic obstructive pulmonary disease, unspecified (3) Bipolar 1 disorder: Impression: Continue valproic acid. (4) Nicotine dependence: Impression: Patient continues to actively smoke daily. Continue nicotine patch. Will consult cessation when appropriate. Qualifiers: Nicotine product type: unspecified Substance use status: uncomplicated Qualified Code(s): F17.200 - Nicotine dependence, unspecified, uncomplicated (5) Hypothyroidism: Impression: Continue levothyroxine 50 mcg daily. Qualifiers: Hypothyroidism type: unspecified Qualified Code(s): E03.9 - Hypothyroidism, unspecified (6) GERD (gastroesophageal reflux disease): Impression: Continue Protonix. Qualifiers: Esophagitis presence: esophagitis presence not specified Qualified Code(s): K21.9 - Gastro-esophageal reflux disease without esophagitis (7) Small cell lung cancer, right upper lobe: Impression: Patient small cell lung cancer of the right upper lobe and received radiation treatment about a year ago. Has not followed up with oncologist since.
[2024-11-27] MEDS: IPRATROPIUM/ALBUTEROL 3 ML NEB INH SCH ×2 (14:03→19:04)
[2024-11-27] MEDS: LORazepam 2 MG/ML VIAL IVP SCH (22:39)
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
[2024-11-28] MEDS: METOCLOPRAMIDE 10 MG/2 ML VIAL IVP PRN (02:56)
[2024-11-28 04:28] LABS: HCT - HEMATOCRIT 39.4 % (37.0-47.0); HGB - HEMOGLOBIN 12.8 g/dL (12.0-16.0); MEAN CORPUSCULAR HGB CONC 32.5 g/dL (32.0-36.0); MEAN CORPUSCULAR VOLUME 89.3 fL (81.0-99.0); MEAN PLATELET VOLUME 12.4 fL (7.9-10.8); RED BLOOD COUNT 4.41 10^6/uL (4.20-5.40); RED CELL DISTRIBUTION WIDTH 13.2 % (12.0-15.0); WHITE BLOOD COUNT 15.5 x10^3/uL (4.8-10.8)
[2024-11-28 04:31] LABS: MAGNESIUM 2.3 mg/dL (1.7-2.3)
[2024-11-28 04:36] LABS: CALCIUM 8.1 mg/dL (8.5-10.3); CREATININE 0.5 mg/dL (0.6-1.3); PHOSPHORUS 3.6 mg/dL (2.5-5.0); POTASSIUM 4.6 mmol/L (3.5-4.5)
[2024-11-28 04:46] LABS: CALCIUM, IONIZED 1.12 mmol/L (1.09-1.30)
[2024-11-28] MEDS: IPRATROPIUM/ALBUTEROL 3 ML NEB INH SCH (06:34)
[2024-11-28] MEDS: MORPHINE 2 MG/ML CARPUJECT IVP ONE (11:56)
--- NOTE | 2024-11-28 12:07 | PROVIDER PROGRESS NOTE ---
Subjective Subjective Subjective: This morning, patient was placed on a spontaneous breathing trial. She did relatively well, her RSBI was less than 105. Decision was made to extubate the patient. After extubation, patient became tachypneic, and had increased work of breathing. She was placed on BiPAP. She was still on Precedex drip, but was very adamant that she did not want to be reintubated. was at bedside, and he does state that this is in concordance with her goals of care. Had a long discussion with about her overall goals of care. We talked about what the next episode look like. This included reintubation now for the third time, possible transfer for evaluation for tracheostomy, as well as ventilator dependence. She has a long history of COPD, and was on chronic prednisone therapy prior to admission. She is still currently smoking. We also talked about hospice care/comfort care, really would shift the goals of care from aggressive medical treatment to comfort based care and make sure she was not feeling any pain, or anxiety, or work of breathing. I also reviewed the last advance care planning note that we have on file in 2022 which stated that the patient did not want to be intubated in the first place. The decided on making the patient comfort care. We did have the hospice team come by and speak with them. Likely the patient will pass in the hospital. Current Medications Current Medications Current Medications: Current Medications Generic Name Dose Route Start Last Admin Trade Name Freq PRN Reason Stop Dose Admin Acetaminophen 650 mg 11/24/24 09:15 Acetaminophen 325 Mg Tablet PO Q4HR PRN Pain or Fever > 38C (100.4F) Albuterol 2.5 mg 11/23/24 21:23 11/25/24 13:29 Albuterol Neb 2.5 Mg/3 Ml INH 2.5 mg RTQ4H PRN Administration Wheezing Albuterol/Ipratropium 3 ml 11/27/24 19:00 11/28/24 11:08 Ipratropium/Albuterol 3 Ml Neb INH 3 ml RTQ4H LORRAINE Administration Albuterol/Ipratropium 3 ml 11/27/24 23:00 11/28/24 06:34 Ipratropium/Albuterol 3 Ml Neb INH Not Given 0300,2300 LORRAINE Fluticasone Propionate 1 sprays 11/24/24 12:00 11/28/24 09:15 Fluticasone Nasal [place] CHRISTIANA 1 sprays DAILY LORRAINE Administration Formoterol Fumarate 20 mcg 11/25/24 19:00 11/28/24 07:38 Formoterol Fumarate Neb 20 Mcg/2 Ml INH 20 mcg RTBID LORRAINE Administration Guaifenesin 400 mg 11/26/24 21:00 11/28/24 09:18 Guaifenesin 100 Mg/5 Ml Udc PO Not Given Q4HR LORRAINE Heparin Sodium (Porcine) 5,000 unit 11/23/24 09:00 11/28/24 09:15 Heparin 5,000 Unit/Ml Vial SUBQ 5,000 unit BID LORRAINE Administration Hydromorphone HCl 0.5 mg 11/25/24 12:58 11/25/24 13:53 Hydromorphone 0.5 Mg/0.5 Ml Syringe IVP 0.5 mg Q4H PRN Administration Severe Pain (Level 7-10) Dexmedetomidine/Sodium Chloride 100 mls @ 2.875 mls/hr 11/23/24 20:38 11/28/24 09:18 Precedex Premix IV 0.3 mcg/kg/hr .[id number] PRN 4.31 mls/hr Agitation Titration Protocol 0.2 MCG/KG/HR Propofol 1,000 mg in 100 mls @ 3.66 mls/hr 11/25/24 13:00 11/27/24 10:50 Diprivan IV 0 mcg/kg/min .[id number] LORRAINE 0 mls/hr Titration Protocol 10 MCG/KG/MIN Ipratropium [place] 0.5 mg 11/23/24 21:23 11/25/24 00:08 Ipratropium 0.2 Mg/Ml Neb INH 0.5 mg RTQ6H PRN Administration Shortness of Air/Wheezing Levothyroxine Sodium 50 mcg 11/23/24 07:30 11/28/24 06:46 Levothyroxine 25 Mcg Tablet PO 50 mcg 0730 LORRAINE Administration Lorazepam 0.5 mg 11/27/24 22:00 11/28/24 06:17 Lorazepam 2 Mg/Ml Vial IVP Not Given Q8HR LORRAINE Methylprednisolone 60 mg 11/24/24 00:00 11/28/24 05:59 Methylprednisolone Succinate 40 Mg/Ml Vial IVP 60 mg Q6H LORRAINE Administration Metoclopramide HCl 5 mg 11/28/24 01:03 11/28/24 02:56 Metoclopramide 10 Mg/2 Ml Vial IVP 5 mg Q8H PRN Administration Nausea / Vomiting Ondansetron HCl 4 mg 11/23/24 03:14 Ondansetron 4 Mg/2 Ml Vial IVP Q6HR PRN Nausea / Vomiting Pantoprazole Sodium 40 mg 11/26/24 07:00 11/28/24 06:46 Pantoprazole 40 Mg Vial IVP 40 mg QDAC LORRAINE Administration Sodium Chloride 10 ml 11/23/24 09:00 11/28/24 09:16 Sodium Chloride Flush 0.9% 10 Ml Syringe IVP 10 ml 0100,0900,1700 LORRAINE Administration Sodium Chloride 10 ml 11/23/24 03:09 11/28/24 06:50 Sodium Chloride Flush 0.9% 10 Ml Syringe IVP 10 ml PRN PRN Administration NEEDED PER PROVIDER ORDERS Tramadol HCl 25 mg 11/24/24 09:15 11/25/24 10:10 Tramadol 50 Mg Tablet PO 25 mg Q6HR PRN Administration Moderate Pain (Level 4-6) Valproic Acid 250 mg 11/26/24 21:00 11/28/24 09:15 Valproate 250 Mg/5 Ml Solution Udc PO 250 mg QID LORRAINE Administration Objective Vital Signs/Intake & Output Reviewed Vital Signs: Yes Vital Signs: Vital Signs x48h Temp Pulse Pulse Resp BP Pulse Ox O2 Flow Rate 11/28/24 11:26 81 11/28/24 11:10 5 11/28/24 11:10 76 25 H 5 11/28/24 11:00 98.2 F 69 19 115/70 95 11/28/24 10:43 70 11/28/24 10:00 80 27 H 135/68 H 92 11/28/24 09:00 68 22 119/67 95 11/28/24 08:29 67 11/28/24 08:00 98.1 F 64 14 119/65 96 11/28/24 07:39 63 11/28/24 07:39 63 14 11/28/24 07:00 64 15 147/75 H 95 11/28/24 06:00 71 18 131/67 H 96 11/28/24 05:39 64 11/28/24 05:00 66 16 156/77 H 96 Intake & Output: Intake & Output 11/25/24 11/26/24 11/27/24 11/28/24 23:59 23:59 23:59 23:59 Intake Total 3255 / 3255 3557 / 3557 2019 668 / 668 Output Total 866 / 866 943 / 943 1265 / 1265 1151 / 1151 Balance 2389 / 2389 2614 / 2614 755 / 755 -483 / -483 Weight (kg) 61 kg 61 kg 62.5 kg 63.5 kg Objective General Appearance: positive Moderate distress, Anxious and Other (respiratory distress); negative Alert Eyes Bilateral: positive Normal inspection, PERRL and EOMI ENT: positive ENT inspection nml, Pharynx nml and No signs of dehydration Neck: positive Nml inspection, Thyroid nml and No JVD Respiratory: positive Chest non-tender and Other ( Diminished air entry bilaterally, minimal expiratory wheezing. No crackles or rales heard.) Cardiovascular: positive Regular rate & rhythm and No murmur; negative Tachycardia or Bradycardia Abdomen: positive Non-tender and No organomegaly; negative Guarding, Rebound, Hepatomegaly, Splenomegaly or Mass Back: positive Nml inspection; negative CVA tenderness (R) or CVA tenderness (L) Skin: positive Color nml, No rash, Warm and Dry Extremities: positive Non-tender, Full ROM and No pedal edema Neurologic/Psychiatric: positive Other (On precedex, awakens to voice and stimulation) Lab Results 11/28/24 04:11 11/28/24 04:11 Other Labs: Lab Results x24hrs 11/28/24 11/28/24 11/27/24 Range/Units 05:53 04:11 17:50 WBC 15.5 H (4.8-10.8) x10^3/uL RBC 4.41 (4.20-5.40) 10^6/uL Hgb 12.8 (12.0-16.0) g/dL Hct 39.4 (37.0-47.0) % MCV 89.3 (81.0-99.0) fL MCH 29.0 (27.0-31.0) pg MCHC 32.5 (32.0-36.0) g/dL RDW 13.2 (12.0-15.0) % Plt Count 261 (130-450) 10^3/uL MPV 12.4 H (7.9-10.8) fL VBG pH 7.580 H (7.31-7.41) Ionized Calcium 1.12 (1.09-1.30) mmol/L Sodium 135 (135-145) mmol/L Potassium 4.6 H (3.5-4.5) mmol/L Chloride 99 L (101-111) mmol/L Carbon Dioxide 32 (21-32) mmol/L Anion Gap 4.0 L (6-13) BUN 24 H (6-20) mg/dL Creatinine 0.5 L (0.6-1.3) mg/dL Estimated GFR (MDRD) 120 (>89) Glucose 150 H (74-104) mg/dL POC Whole Bld Glucose 130 158 (70-100) mg/dL Calcium 8.1 L (8.5-10.3) mg/dL Phosphorus 3.6 (2.5-5.0) mg/dL Magnesium 2.3 (1.7-2.3) mg/dL Diagnostic Imaging Diagnostic Imaging Results: positive Final report reviewed Sepsis Event Note (H) Evaluation Current Stage of Sepsis: Sepsis Possible source of Sepsis: positive Pulmonary Sepsis Criteria Sepsis Criteria: Suspected or Documented, Recorded Heart Rate greater than 90 bpm, Recorded Respiratory Rate greater than 20 and WBC count greater than 12,000 or less than 4000 Assessment/Plan Problem List (1) Acute hypoxic respiratory failure: Impression: Patient presented with fatigue, weakness, as well as tachypnea. Respiratory viral panel positive for parainfluenza. CTA done showed no pulmonary embolus, stable appearance of right upper lobe spiculated nodules as well as slightly increased prominence of satellite nodules along inferior margin. No pneumothorax, pleural effusions, or consolidations were seen. Patient was intubated on admission 11/22, extubated in the afternoon of 11/23, and then subsequently reintubated on 11/25. This morning, patient was placed on a spontaneous breathing trial. She did relatively well, her RSBI was less than 105. Decision was made to extubate the patient. After extubation, patient became tachypneic, and had increased work of breathing. She was placed on BiPAP. She was still on Precedex drip, but was very adamant that she did not want to be reintubated. was at bedside, and he does state that this is in concordance with her goals of care. Had a long discussion with about her overall goals of care. We talked about what the next episode look like. This included reintubation now for the third time, possible transfer for evaluation for tracheostomy, as well as ventilator dependence. She has a long history of COPD, and was on chronic prednisone therapy prior to admission. She is still currently smoking. We also talked about hospice care/comfort care, really would shift the goals of care from aggressive medical treatment to comfort based care and make sure she was not feeling any pain, or anxiety, or work of breathing. I also reviewed the last advance care planning note that we have on file in 2022 which stated that the patient did not want to be intubated in the first place. The decided on making the patient comfort care. We did have the hospice team come by and speak with them. Likely the patient will pass in the hospital. (2) COPD (chronic obstructive pulmonary disease): Impression: See above. Qualifiers: COPD type: unspecified COPD Qualified Code(s): J44.9 - Chronic obstructive pulmonary disease, unspecified (3) Bipolar 1 disorder: Impression: Continue valproic acid. (4) Nicotine dependence: Impression: Patient continues to actively smoke daily. Continue nicotine patch. Will consult cessation when appropriate. Qualifiers: Nicotine product type: unspecified Substance use status: uncomplicated Qualified Code(s): F17.200 - Nicotine dependence, unspecified, uncomplicated (5) Hypothyroidism: Impression: Continue levothyroxine 50 mcg daily. Qualifiers: Hypothyroidism type: unspecified Qualified Code(s): E03.9 - Hypothyroidism, unspecified (6) GERD (gastroesophageal reflux disease): Impression: Continue Protonix. Qualifiers: Esophagitis presence: esophagitis presence not specified Qualified Code(s): K21.9 - Gastro-esophageal reflux disease without esophagitis (7) Small cell lung cancer, right upper lobe: Impression: Patient small cell lung cancer of the right upper lobe and received radiation treatment about a year ago. Has not followed up with oncologist since.
[2024-11-28] MEDS: EPINEPHrine 1 MG/ML AMP INH STA (14:31)
[2024-11-28] MEDS ORDERED: ONDANSETRON 4 MG/2 ML VIAL IVP PRN (15:45)
[2024-11-28] MEDS: LORazepam 2 MG/ML VIAL IVP PRN (16:11)
[2024-11-28] MEDS: MORPHINE 2 MG/ML CARPUJECT IVP PRN ×2 (16:12→17:07)
[2024-11-28] MEDS: SCOPOLAMINE PATCH TOP SCH (17:02)
[2024-11-28] MEDS: MORPHINE INJ 100 MG in SODIUM CHLORIDE 0.9% 100ML 90 ML IV SCH (19:53)
--- NOTE | 2024-11-29 11:40 | PROVIDER PROGRESS NOTE ---
Subjective Subjective Subjective: Had a long discussion with yesterday about her overall goals of care. We talked about what the next steps would look like. This included reintubation now for the third time, possible transfer for evaluation for tracheostomy, as well as ventilator dependence. She has a long history of COPD, and was on chronic prednisone therapy prior to admission. She is still currently smoking. We also talked about hospice care/comfort care, about how that would shift the goals of care from aggressive medical treatment to comfort based care and make sure she was not feeling any pain, or anxiety, or work of breathing. I also reviewed the last advance care planning note that we have on file in 2022 which stated that the patient did not want to be intubated in the first place. The decided on making the patient comfort care. We did have the hospice team come by and speak with them. Patient appears to be imminently dying. Current Medications Current Medications Current Medications: Current Medications Generic Name Dose Route Start Last Admin Trade Name Freq PRN Reason Stop Dose Admin Acetaminophen 650 mg 11/24/24 09:15 Acetaminophen 325 Mg Tablet PO Q4HR PRN Pain or Fever > 38C (100.4F) Formoterol Fumarate 20 mcg 11/25/24 19:00 11/28/24 19:30 Formoterol Fumarate Neb 20 Mcg/2 Ml INH Not Given RTBID LORRAINE Haloperidol 1 mg 11/28/24 15:45 Haloperidol 1 Mg Tablet PO Q2H PRN Agitation Dexmedetomidine/Sodium Chloride 100 mls @ 2.875 mls/hr 11/23/24 20:38 11/29/24 05:11 Precedex Premix IV 0.04 mcg/kg/hr .[id number] PRN 0.6 mls/hr Agitation Administration Protocol 0.2 MCG/KG/HR Morphine Sulfate 100 mg/ 100 mls @ 0.5 mls/hr 11/28/24 20:00 11/28/24 19:53 Sodium Chloride IV 0.5 mg/hr .Q72H LORRAINE 0.5 mls/hr Administration Protocol 0.5 MG/HR Lorazepam 1 mg 11/28/24 15:45 11/28/24 16:11 Lorazepam 2 Mg/Ml Vial IVP 1 mg Q6H PRN Administration Anxiety/Agitation Methylprednisolone 60 mg 11/24/24 00:00 11/29/24 05:58 Methylprednisolone Succinate 40 Mg/Ml Vial IVP 60 mg Q6H LORRAINE Administration Metoclopramide HCl 5 mg 11/28/24 01:03 11/28/24 02:56 Metoclopramide 10 Mg/2 Ml Vial IVP 5 mg Q8H PRN Administration Nausea / Vomiting Morphine Sulfate 2 mg 11/28/24 16:53 11/28/24 18:21 Morphine 2 Mg/Ml Carpuject IVP 2 mg Q1HR PRN Administration Severe Pain (Level 7-10)/ SOA Ondansetron HCl 4 mg 11/23/24 03:14 Ondansetron 4 Mg/2 Ml Vial IVP Q6HR PRN Nausea / Vomiting Ondansetron HCl 4 mg 11/28/24 15:45 Ondansetron 4 Mg/2 Ml Vial IVP Q8H PRN Nausea / Vomiting Scopolamine HBr 1 patch 11/28/24 16:00 11/28/24 17:02 Scopolamine Patch TOP 1 patch Q3D LORRAINE Administration Sodium Chloride 10 ml 11/23/24 09:00 11/29/24 08:44 Sodium Chloride Flush 0.9% 10 Ml Syringe IVP 10 ml 0100,0900,1700 LORRAINE Administration Sodium Chloride 10 ml 11/23/24 03:09 11/29/24 05:12 Sodium Chloride Flush 0.9% 10 Ml Syringe IVP 10 ml PRN PRN Administration NEEDED PER PROVIDER ORDERS Objective Vital Signs/Intake & Output Reviewed Vital Signs: Yes Vital Signs: Vital Signs x48h Pulse Resp BP Pulse Ox 11/29/24 11:16 64 18 88 L 11/29/24 11:00 18 11/29/24 10:00 20 11/29/24 08:55 20 11/29/24 07:55 20 11/29/24 07:50 63 20 141/77 H 86 L Intake & Output: Intake & Output 11/26/24 11/27/24 11/28/24 11/29/24 23:59 23:59 23:59 23:59 Intake Total 3557 / 3557 2019 966 / 966 86 / 86 Output Total 943 / 943 1265 / 1265 1336 / 1336 720 / 720 Balance 2614 / 2614 755 / 755 -370 / -370 -634 / -634 Weight (kg) 61 kg 62.5 kg 63.5 kg Objective General Appearance: positive Moderate distress, Anxious and Other (respiratory distress); negative Alert Eyes Bilateral: positive Normal inspection, PERRL and EOMI ENT: positive ENT inspection nml, Pharynx nml and No signs of dehydration Neck: positive Nml inspection, Thyroid nml and No JVD Respiratory: positive Chest non-tender and Other ( Diminished air entry bilaterally, minimal expiratory wheezing. No crackles or rales heard.) Cardiovascular: positive Regular rate & rhythm and No murmur; negative Tachycardia or Bradycardia Abdomen: positive Non-tender and No organomegaly; negative Guarding, Rebound, Hepatomegaly, Splenomegaly or Mass Back: positive Nml inspection; negative CVA tenderness (R) or CVA tenderness (L) Skin: positive Color nml, No rash, Warm and Dry Extremities: positive Non-tender, Full ROM and No pedal edema Neurologic/Psychiatric: positive Other (On precedex, awakens to voice and stimulation) Lab Results 11/28/24 04:11 11/28/24 04:11 Other Labs: Lab Results x24hrs 11/28/24 Range/Units 11:52 POC Whole Bld Glucose 134 (70-100) mg/dL Diagnostic Imaging Diagnostic Imaging Results: positive Final report reviewed Sepsis Event Note (H) Evaluation Current Stage of Sepsis: Sepsis Possible source of Sepsis: positive Pulmonary Sepsis Criteria Sepsis Criteria: Suspected or Documented, Recorded Heart Rate greater than 90 bpm, Recorded Respiratory Rate greater than 20 and WBC count greater than 12,000 or less than 4000 Assessment/Plan Problem List (1) Acute hypoxic respiratory failure: Impression: Patient presented with fatigue, weakness, as well as tachypnea. Respiratory viral panel positive for parainfluenza. CTA done showed no pulmonary embolus, stable appearance of right upper lobe spiculated nodules as well as slightly increased prominence of satellite nodules along inferior margin. No pneumothorax, pleural effusions, or consolidations were seen. Patient was intubated on admission 11/22, extubated in the afternoon of 11/23, and then subsequently reintubated on 11/25. This morning, patient was placed on a spontaneous breathing trial. She did relatively well, her RSBI was less than 105. Decision was made to extubate the patient. After extubation, patient became tachypneic, and had increased work of breathing. She was placed on BiPAP. She was still on Precedex drip, but was very adamant that she did not want to be reintubated. was at bedside, and he does state that this is in concordance with her goals of care. Had a long discussion with about her overall goals of care. We talked about what the next episode look like. This included reintubation now for the third time, possible transfer for evaluation for tracheostomy, as well as ventilator dependence. She has a long history of COPD, and was on chronic prednisone therapy prior to admission. She is still currently smoking. We also talked about hospice care/comfort care, really would shift the goals of care from aggressive medical treatment to comfort based care and make sure she was not feeling any pain, or anxiety, or work of breathing. I also reviewed the last advance care planning note that we have on file in 2022 which stated that the patient did not want to be intubated in the first place. The decided on making the patient comfort care. We did have the hospice team come by and speak with them. Patient is imminently dying. (2) COPD (chronic obstructive pulmonary disease): Impression: See above. Qualifiers: COPD type: unspecified COPD Qualified Code(s): J44.9 - Chronic obstructive pulmonary disease, unspecified (3) Bipolar 1 disorder: Impression: Continue valproic acid. (4) Nicotine dependence: Impression: Patient continues to actively smoke daily. Continue nicotine patch. Will consult cessation when appropriate. Qualifiers: Nicotine product type: unspecified Substance use status: uncomplicated Qualified Code(s): F17.200 - Nicotine dependence, unspecified, uncomplicated (5) Hypothyroidism: Impression: Continue levothyroxine 50 mcg daily. Qualifiers: Hypothyroidism type: unspecified Qualified Code(s): E03.9 - Hypothyroidism, unspecified (6) GERD (gastroesophageal reflux disease): Impression: Continue Protonix. Qualifiers: Esophagitis presence: esophagitis presence not specified Qualified Code(s): K21.9 - Gastro-esophageal reflux disease without esophagitis (7) Small cell lung cancer, right upper lobe: Impression: Patient small cell lung cancer of the right upper lobe and received radiation treatment about a year ago. Has not followed up with oncologist since.
[2024-11-29] MEDS: methylPREDNISolone SUCCINATE 125 MG/2 ML VIAL IVP SCH (21:28)
[2024-11-30] MEDS ORDERED: IPRATROPIUM/ALBUTEROL 3 ML NEB INH PRN (09:44)
[2024-11-30] MEDS: MORPHINE 2 MG/ML CARPUJECT IVP PRN (10:29)
--- NOTE | 2024-11-30 11:02 | PROVIDER PROGRESS NOTE ---
Subjective Subjective Subjective: Patient is awake today. She states that she feels like she is working really hard to breathe. She understands that she is on hospice and comfort care at this time. Had a long discussion with yesterday about her overall goals of care. We talked about what the next steps would look like. This included reintubation now for the third time, possible transfer for evaluation for tracheostomy, as well as ventilator dependence. She has a long history of COPD, and was on chronic prednisone therapy prior to admission. She is still currently smoking. We also talked about hospice care/comfort care, about how that would shift the goals of care from aggressive medical treatment to comfort based care and make sure she was not feeling any pain, or anxiety, or work of breathing. I also reviewed the last advance care planning note that we have on file in 2022 which stated that the patient did not want to be intubated in the first place. The decided on making the patient comfort care. We did have the hospice team come by and speak with them. Patient appears to be imminently dying. Current Medications Current Medications Current Medications: Current Medications Generic Name Dose Route Start Last Admin Trade Name Freq PRN Reason Stop Dose Admin Acetaminophen 650 mg 11/24/24 09:15 Acetaminophen 325 Mg Tablet PO Q4HR PRN Pain or Fever > 38C (100.4F) Albuterol/Ipratropium 3 ml 11/30/24 09:44 Ipratropium/Albuterol 3 Ml Neb INH Q4HR PRN Wheezing Haloperidol 1 mg 11/28/24 15:45 Haloperidol 1 Mg Tablet PO Q2H PRN Agitation Dexmedetomidine/Sodium Chloride 100 mls @ 2.875 mls/hr 11/23/24 20:38 11/29/24 16:12 Precedex Premix IV Infused .[id number] PRN Titration Agitation Protocol 0.2 MCG/KG/HR Lorazepam 1 mg 11/28/24 15:45 11/28/24 16:11 Lorazepam 2 Mg/Ml Vial IVP 1 mg Q6H PRN Administration Anxiety/Agitation Methylprednisolone Sodium Succinate 60 mg 11/29/24 21:00 11/30/24 10:11 Methylprednisolone Succinate 125 Mg/2 Ml Vial IVP 60 mg BID LORRAINE Administration Metoclopramide HCl 5 mg 11/28/24 01:03 11/28/24 02:56 Metoclopramide 10 Mg/2 Ml Vial IVP 5 mg Q8H PRN Administration Nausea / Vomiting Morphine Sulfate 4 mg 11/30/24 10:07 11/30/24 10:29 Morphine 2 Mg/Ml Carpuject IVP 4 mg Q1HR PRN Administration Severe Pain (Level 7-10)/ SOA Ondansetron HCl 4 mg 11/23/24 03:14 Ondansetron 4 Mg/2 Ml Vial IVP Q6HR PRN Nausea / Vomiting Ondansetron HCl 4 mg 11/28/24 15:45 Ondansetron 4 Mg/2 Ml Vial IVP Q8H PRN Nausea / Vomiting Scopolamine HBr 1 patch 11/28/24 16:00 11/28/24 17:02 Scopolamine Patch TOP 1 patch Q3D LORRAINE Administration Sodium Chloride 10 ml 11/23/24 09:00 11/30/24 10:13 Sodium Chloride Flush 0.9% 10 Ml Syringe IVP 10 ml 0100,[id number],1700 LORRAINE Administration Sodium Chloride 10 ml 11/23/24 03:09 11/30/24 10:30 Sodium Chloride Flush 0.9% 10 Ml Syringe IVP 10 ml PRN PRN Administration NEEDED PER PROVIDER ORDERS Objective Vital Signs/Intake & Output Reviewed Vital Signs: Yes Vital Signs: Vital Signs x48h Temp Pulse Resp Pulse Ox O2 Flow Rate 11/30/24 10:06 98.1 F 84 28 H 98 2 11/30/24 10:05 18 11/30/24 05:00 18 Intake & Output: Intake & Output 11/27/24 11/28/24 11/29/24 11/30/24 23:59 23:59 23:59 23:59 Intake Total 2019 966 / 966 186 / 186 Output Total 1265 / 1265 1336 / 1336 2069 / 2069 400 / 400 Balance 755 / 755 -370 / -370 -1884 / -1884 -381 / -381 Weight (kg) 62.5 kg 63.5 kg Objective General Appearance: positive Alert, Moderate distress, Anxious and Other (respiratory distress) Eyes Bilateral: positive Normal inspection, PERRL and EOMI ENT: positive ENT inspection nml, Pharynx nml and No signs of dehydration Neck: positive Nml inspection, Thyroid nml and No JVD Respiratory: positive Chest non-tender and Other ( Diminished air entry bilaterally, minimal expiratory wheezing. No crackles or rales heard.) Cardiovascular: positive Regular rate & rhythm and No murmur; negative Tachycardia or Bradycardia Abdomen: positive Non-tender and No organomegaly; negative Guarding, Rebound, Hepatomegaly, Splenomegaly or Mass Back: positive Nml inspection; negative CVA tenderness (R) or CVA tenderness (L) Skin: positive Color nml, No rash, Warm and Dry Extremities: positive Non-tender, Full ROM and No pedal edema Neurologic/Psychiatric: positive Disoriented to place and Disoriented to time Lab Results 11/28/24 04:11 11/28/24 04:11 Other Labs: Lab Results x24hrs 11/28/24 Range/Units 11:52 POC Whole Bld Glucose 134 (70-100) mg/dL Diagnostic Imaging Diagnostic Imaging Results: positive Final report reviewed Sepsis Event Note (H) Evaluation Current Stage of Sepsis: Sepsis Possible source of Sepsis: positive Pulmonary Sepsis Criteria Sepsis Criteria: Suspected or Documented, Recorded Heart Rate greater than 90 bpm, Recorded Respiratory Rate greater than 20 and WBC count greater than 12,000 or less than 4000 Assessment/Plan Problem List (1) Acute hypoxic respiratory failure: Impression: Patient presented with fatigue, weakness, as well as tachypnea. Respiratory viral panel positive for parainfluenza. CTA done showed no pulmonary embolus, stable appearance of right upper lobe spiculated nodules as well as slightly increased prominence of satellite nodules along inferior margin. No pneumothorax, pleural effusions, or consolidations were seen. Patient was intubated on admission 11/22, extubated in the afternoon of 11/23, and then subsequently reintubated on 11/25. Extubated again on 11/28. After extubation, patient became tachypneic, and had increased work of breathing. She was placed on BiPAP. She was still on Precedex drip, but was very adamant that she did not want to be reintubated. was at bedside, and he does state that this is in concordance with her goals of care. Had a long discussion with about her overall goals of care. We talked about what the next episode look like. This included reintubation now for the third time, possible transfer for evaluation for tracheostomy, as well as ventilator dependence. She has a long history of COPD, and was on chronic prednisone therapy prior to admission. She is still currently smoking. We also talked about hospice care/comfort care, really would shift the goals of care from aggressive medical treatment to comfort based care and make sure she was not feeling any pain, or anxiety, or work of breathing. I also reviewed the last advance care planning note that we have on file in 2022 which stated that the patient did not want to be intubated in the first place. The decided on making the patient comfort care. We did have the hospice team come by and speak with them. Patient is imminently dying. Was started on SR. MANAGER morphine yesterday; dc'd at this time. Continue IV morphine 4mg every hour as needed. Patient continues to have significant air hunger and work of breathing. Patient has also requested some comfort feeds. Will continue Solumedrol, wean down, and Duonebs as needed, as I believe it is helping with her work of breathing. (2) COPD (chronic obstructive pulmonary disease): Impression: See above. Qualifiers: COPD type: unspecified COPD Qualified Code(s): J44.9 - Chronic obstructive pulmonary disease, unspecified (3) Bipolar 1 disorder: Impression: Hold valproic acid. Patient unable to safely swallow. (4) Nicotine dependence: Impression: Patient continues to actively smoke daily. Continue nicotine patch. Qualifiers: Nicotine product type: unspecified Substance use status: uncomplicated Qualified Code(s): F17.200 - Nicotine dependence, unspecified, uncomplicated (5) Hypothyroidism: Impression: Hold levothyroxine 50 mcg. Qualifiers: Hypothyroidism type: unspecified Qualified Code(s): E03.9 - Hypothyroidism, unspecified (6) GERD (gastroesophageal reflux disease): Impression: Hold Protonix. Qualifiers: Esophagitis presence: esophagitis presence not specified Qualified Code(s): K21.9 - Gastro-esophageal reflux disease without esophagitis (7) Small cell lung cancer, right upper lobe: Impression: Patient small cell lung cancer of the right upper lobe and received radiation treatment about a year ago. Has not followed up with oncologist since.
[2024-11-30] MEDS ORDERED: HALOPERIDOL 5 MG/ML VIAL IVP PRN (21:01)
[2024-12-01] MEDS: methylPREDNISolone SUCCINATE 125 MG/2 ML VIAL IVP SCH (08:28)
--- NOTE | 2024-12-01 08:55 | PROVIDER PROGRESS NOTE ---
Subjective Subjective Subjective: Patient is more lethargic today. She is able to swallow, so we are going to trial oral morphine. I successful, we will try to wean back on the IV morphine that is keeping her here. Had a long discussion with yesterday about her overall goals of care. We talked about what the next steps would look like. This included reintubation now for the third time, possible transfer for evaluation for tracheostomy, as well as ventilator dependence. She has a long history of COPD, and was on chronic prednisone therapy prior to admission. She is still currently smoking. We also talked about hospice care/comfort care, about how that would shift the goals of care from aggressive medical treatment to comfort based care and make sure she was not feeling any pain, or anxiety, or work of breathing. I also reviewed the last advance care planning note that we have on file in 2022 which stated that the patient did not want to be intubated in the first place. The decided on making the patient comfort care. We did have the hospice team come by and speak with them. Patient appears to be imminently dying. Current Medications Current Medications Current Medications: Current Medications Generic Name Dose Route Start Last Admin Trade Name Freq PRN Reason Stop Dose Admin Acetaminophen 650 mg 11/24/24 09:15 Acetaminophen 325 Mg Tablet PO Q4HR PRN Pain or Fever > 38C (100.4F) Albuterol/Ipratropium 3 ml 11/30/24 09:44 Ipratropium/Albuterol 3 Ml Neb INH Q4HR PRN Wheezing Haloperidol 1 mg 11/28/24 15:45 Haloperidol 1 Mg Tablet PO Q2H PRN Agitation Haloperidol 1 mg 11/30/24 21:01 Haloperidol 5 Mg/Ml Vial IVP Q6H PRN Agitation Lorazepam 1 mg 11/28/24 15:45 12/01/24 07:02 Lorazepam 2 Mg/Ml Vial IVP 1 mg Q6H PRN Administration Anxiety/Agitation Methylprednisolone Sodium Succinate 60 mg 12/01/24 09:00 12/01/24 08:28 Methylprednisolone Succinate 125 Mg/2 Ml Vial IVP 60 mg DAILY LORRAINE Administration Metoclopramide HCl 5 mg 11/28/24 01:03 11/28/24 02:56 Metoclopramide 10 Mg/2 Ml Vial IVP 5 mg Q8H PRN Administration Nausea / Vomiting Morphine Sulfate 4 mg 11/30/24 10:07 12/01/24 06:54 Morphine 2 Mg/Ml Carpuject IVP 4 mg Q1HR PRN Administration Severe Pain (Level 7-10)/ SOA Morphine Sulfate 10 mg 12/01/24 08:24 Morphine Judith 10 Mg/0.5 Ml Oral Syringe PO Q2HR PRN Moderate Pain (Level 4-6) Ondansetron HCl 4 mg 11/23/24 03:14 Ondansetron 4 Mg/2 Ml Vial IVP Q6HR PRN Nausea / Vomiting Ondansetron HCl 4 mg 11/28/24 15:45 Ondansetron 4 Mg/2 Ml Vial IVP Q8H PRN Nausea / Vomiting Scopolamine HBr 1 patch 11/28/24 16:00 11/28/24 17:02 Scopolamine Patch TOP 1 patch Q3D LORRAINE Administration Sodium Chloride 10 ml 11/23/24 09:00 12/01/24 08:31 Sodium Chloride Flush 0.9% 10 Ml Syringe IVP 10 ml 0100,[id number],1700 LORRAINE Administration Sodium Chloride 10 ml 11/23/24 03:09 11/30/24 12:21 Sodium Chloride Flush 0.9% 10 Ml Syringe IVP 10 ml PRN PRN Administration NEEDED PER PROVIDER ORDERS Objective Vital Signs/Intake & Output Reviewed Vital Signs: Yes Vital Signs: Vital Signs x48h Temp Pulse Resp Pulse Ox O2 Flow Rate 11/30/24 10:06 98.1 F 84 28 H 98 2 11/30/24 10:05 18 11/30/24 05:00 18 Intake & Output: Intake & Output 11/28/24 11/29/24 11/30/24 12/01/24 23:59 23:59 23:59 23:59 Intake Total 966 / 966 186 / 186 Output Total 1336 / 1336 2069 / 0 950 / 950 250 / 250 Balance -370 / -370 -1884 / -1884 -931 / -931 -250 / -250 Weight (kg) 63.5 kg Objective General Appearance: positive Alert, Mild distress, Anxious and Other (respiratory distress) Eyes Bilateral: positive Normal inspection, PERRL and EOMI ENT: positive ENT inspection nml, Pharynx nml and No signs of dehydration Neck: positive Nml inspection, Thyroid nml and No JVD Respiratory: positive Chest non-tender and Other ( Diminished air entry bilaterally, minimal expiratory wheezing. No crackles or rales heard.) Cardiovascular: positive Regular rate & rhythm and No murmur; negative Tachycardia or Bradycardia Abdomen: positive Non-tender and No organomegaly; negative Guarding, Rebound, Hepatomegaly, Splenomegaly or Mass Back: positive Nml inspection; negative CVA tenderness (R) or CVA tenderness (L) Skin: positive Color nml, No rash, Warm and Dry Extremities: positive Non-tender, Full ROM and No pedal edema Neurologic/Psychiatric: positive Disoriented to place and Disoriented to time Lab Results 11/28/24 04:11 11/28/24 04:11 Other Labs: Lab Results x24hrs 11/28/24 Range/Units 11:52 POC Whole Bld Glucose 134 (70-100) mg/dL Diagnostic Imaging Diagnostic Imaging Results: positive Final report reviewed Sepsis Event Note (H) Evaluation Current Stage of Sepsis: Sepsis Possible source of Sepsis: positive Pulmonary Sepsis Criteria Sepsis Criteria: Suspected or Documented, Recorded Heart Rate greater than 90 bpm, Recorded Respiratory Rate greater than 20 and WBC count greater than 12,000 or less than 4000 Assessment/Plan Problem List (1) Acute hypoxic respiratory failure: Impression: Patient presented with fatigue, weakness, as well as tachypnea. Respiratory viral panel positive for parainfluenza. CTA done showed no pulmonary embolus, stable appearance of right upper lobe spiculated nodules as well as slightly increased prominence of satellite nodules along inferior margin. No pneumothorax, pleural effusions, or consolidations were seen. Patient was intubated on admission 11/22, extubated in the afternoon of 11/23, and then subsequently reintubated on 11/25. Extubated again on 11/28. After extubation, patient became tachypneic, and had increased work of breathing. She was placed on BiPAP. She was still on Precedex drip, but was very adamant that she did not want to be reintubated. was at bedside, and he does state that this is in concordance with her goals of care. Had a long discussion with about her overall goals of care. We talked about what the next episode look like. This included reintubation now for the third time, possible transfer for evaluation for tracheostomy, as well as ventilator dependence. She has a long history of COPD, and was on chronic prednisone therapy prior to admission. She is still currently smoking. We also talked about hospice care/comfort care, really would shift the goals of care from aggressive medical treatment to comfort based care and make sure she was not feeling any pain, or anxiety, or work of breathing. I also reviewed the last advance care planning note that we have on file in 2022 which stated that the patient did not want to be intubated in the first place. The decided on making the patient comfort care. We did have the hospice team come by and speak with them. Patient is imminently dying. Continue IV morphine 4mg every hour as needed. Added oral morphine today. May trial fentanyl patch. Will speak with Hospice team about hospice at home. She is still requiring IV morphine. Patient continues to have significant air hunger and work of breathing. Will continue Solumedrol, wean down, and Duonebs as needed, as I believe it is helping with her work of breathing. (2) COPD (chronic obstructive pulmonary disease): Impression: See above. Qualifiers: COPD type: unspecified COPD Qualified Code(s): J44.9 - Chronic obstructive pulmonary disease, unspecified (3) Bipolar 1 disorder: Impression: Hold valproic acid. Patient unable to safely swallow. (4) Nicotine dependence: Impression: Patient continues to actively smoke daily. Continue nicotine patch. Qualifiers: Nicotine product type: unspecified Substance use status: uncomplicated Qualified Code(s): F17.200 - Nicotine dependence, unspecified, uncomplicated (5) Hypothyroidism: Impression: Hold levothyroxine 50 mcg. Qualifiers: Hypothyroidism type: unspecified Qualified Code(s): E03.9 - Hypothyroidism, unspecified (6) GERD (gastroesophageal reflux disease): Impression: Hold Protonix. Qualifiers: Esophagitis presence: esophagitis presence not specified Qualified Code(s): K21.9 - Gastro-esophageal reflux disease without esophagitis (7) Small cell lung cancer, right upper lobe: Impression: Patient small cell lung cancer of the right upper lobe and received radiation treatment about a year ago. Has not followed up with oncologist since.
[2024-12-01] MEDS: MORPHINE SOL 10 MG/0.5 ML ORAL SYRINGE PO PRN (13:05)
--- NOTE | 2024-12-02 09:56 | PROVIDER PROGRESS NOTE ---
Subjective Subjective Subjective: Patient is more lethargic today. She is able to swallow, so we are going to trial oral morphine. She has not required IV morphine for about 12 hours. If she can stay off of it, she will be medically cleared as of today. Will plan for Hospice at home. Current Medications Current Medications Current Medications: Current Medications Generic Name Dose Route Start Last Admin Trade Name Freq PRN Reason Stop Dose Admin Acetaminophen 650 mg 11/24/24 09:15 Acetaminophen 325 Mg Tablet PO Q4HR PRN Pain or Fever > 38C (100.4F) Albuterol/Ipratropium 3 ml 11/30/24 09:44 Ipratropium/Albuterol 3 Ml Neb INH Q4HR PRN Wheezing Haloperidol 1 mg 11/28/24 15:45 Haloperidol 1 Mg Tablet PO Q2H PRN Agitation Haloperidol 1 mg 11/30/24 21:01 Haloperidol 5 Mg/Ml Vial IVP Q6H PRN Agitation Lorazepam 1 mg 11/28/24 15:45 12/02/24 06:52 Lorazepam 2 Mg/Ml Vial IVP 1 mg Q6H PRN Administration Anxiety/Agitation Methylprednisolone Sodium Succinate 60 mg 12/01/24 09:00 12/01/24 08:28 Methylprednisolone Succinate 125 Mg/2 Ml Vial IVP 60 mg DAILY LORRAINE Administration Metoclopramide HCl 5 mg 11/28/24 01:03 11/28/24 02:56 Metoclopramide 10 Mg/2 Ml Vial IVP 5 mg Q8H PRN Administration Nausea / Vomiting Morphine Sulfate 4 mg 11/30/24 10:07 12/01/24 23:31 Morphine 2 Mg/Ml Carpuject IVP 4 mg Q1HR PRN Administration Severe Pain (Level 7-10)/ SOA Morphine Sulfate 10 mg 12/01/24 08:24 12/02/24 06:50 Morphine Judith 10 Mg/0.5 Ml Oral Syringe PO 10 mg Q2HR PRN Administration Moderate Pain (Level 4-6) Ondansetron HCl 4 mg 11/23/24 03:14 Ondansetron 4 Mg/2 Ml Vial IVP Q6HR PRN Nausea / Vomiting Ondansetron HCl 4 mg 11/28/24 15:45 Ondansetron 4 Mg/2 Ml Vial IVP Q8H PRN Nausea / Vomiting Scopolamine HBr 1 patch 11/28/24 16:00 12/01/24 15:45 Scopolamine Patch TOP 1 patch Q3D LORRAINE Administration Sodium Chloride 10 ml 11/23/24 09:00 12/01/24 23:31 Sodium Chloride Flush 0.9% 10 Ml Syringe IVP 10 ml 0100,0900,1700 LORRAINE Administration Sodium Chloride 10 ml 11/23/24 03:09 11/30/24 12:21 Sodium Chloride Flush 0.9% 10 Ml Syringe IVP 10 ml PRN PRN Administration NEEDED PER PROVIDER ORDERS Objective Vital Signs/Intake & Output Reviewed Vital Signs: Yes Vital Signs: Vital Signs x48h O2 Flow Rate 12/02/24 08:45 2 Intake & Output: Intake & Output 11/29/24 11/30/24 12/01/24 12/02/24 23:59 23:59 23:59 23:59 Intake Total 186 / 186 19 / 19 360 / 360 100 / 100 Output Total 2069 / 2069 950 / 950 775 / 775 250 / 250 Balance -1884 / -1884 -931 / -931 -415 / -415 -150 / -150 Objective General Appearance: positive Alert, Mild distress, Anxious and Other (respiratory distress) Eyes Bilateral: positive Normal inspection, PERRL and EOMI ENT: positive ENT inspection nml, Pharynx nml and No signs of dehydration Neck: positive Nml inspection, Thyroid nml and No JVD Respiratory: positive Chest non-tender and Other ( Diminished air entry bilaterally, minimal expiratory wheezing. No crackles or rales heard.) Cardiovascular: positive Regular rate & rhythm and No murmur; negative Tachycardia or Bradycardia Abdomen: positive Non-tender and No organomegaly; negative Guarding, Rebound, Hepatomegaly, Splenomegaly or Mass Back: positive Nml inspection; negative CVA tenderness (R) or CVA tenderness (L) Skin: positive Color nml, No rash, Warm and Dry Extremities: positive Non-tender, Full ROM and No pedal edema Neurologic/Psychiatric: positive Disoriented to place and Disoriented to time Lab Results 11/28/24 04:11 11/28/24 04:11 Other Labs: Lab Results x24hrs 11/27/24 Range/Units 23:49 POC Whole Bld Glucose 158 (70-100) mg/dL Diagnostic Imaging Diagnostic Imaging Results: positive Final report reviewed Sepsis Event Note (H) Evaluation Current Stage of Sepsis: Sepsis Possible source of Sepsis: positive Pulmonary Sepsis Criteria Sepsis Criteria: Suspected or Documented, Recorded Heart Rate greater than 90 bpm, Recorded Respiratory Rate greater than 20 and WBC count greater than 12,000 or less than 4000 Assessment/Plan Problem List (1) Acute hypoxic respiratory failure: Impression: Patient presented with fatigue, weakness, as well as tachypnea. Respiratory viral panel positive for parainfluenza. CTA done showed no pulmonary embolus, stable appearance of right upper lobe spiculated nodules as well as slightly increased prominence of satellite nodules along inferior margin. No pneumothorax, pleural effusions, or consolidations were seen. Patient was intubated on admission 11/22, extubated in the afternoon of 11/23, and then subsequently reintubated on 11/25. Extubated again on 11/28. After extubation, patient became tachypneic, and had increased work of breathing. She was placed on BiPAP. She was still on Precedex drip, but was very adamant that she did not want to be reintubated. was at bedside, and he does state that this is in concordance with her goals of care. Had a long discussion with about her overall goals of care. We talked about what the next episode look like. This included reintubation now for the third time, possible transfer for evaluation for tracheostomy, as well as ventilator dependence. She has a long history of COPD, and was on chronic prednisone therapy prior to admission. She is still currently smoking. We also talked about hospice care/comfort care, really would shift the goals of care from aggressive medical treatment to comfort based care and make sure she was not feeling any pain, or anxiety, or work of breathing. I also reviewed the last advance care planning note that we have on file in 2022 which stated that the patient did not want to be intubated in the first place. The decided on making the patient comfort care. We did have the hospice team come by and speak with them. Continue IV morphine as needed. We have been using oral morphine with good results. Will speak with Hospice team about hospice at home. Patient continues to have significant air hunger and work of breathing. Will continue weaning down Solumedrol, start oral prednisone tomorrow, and Duonebs as needed, as I believe it is helping with her work of breathing. (2) COPD (chronic obstructive pulmonary disease): Impression: See above. Qualifiers: COPD type: unspecified COPD Qualified Code(s): J44.9 - Chronic obstructive pulmonary disease, unspecified (3) Bipolar 1 disorder: Impression: Hold valproic acid. Patient unable to safely swallow. (4) Nicotine dependence: Impression: Patient continues to actively smoke daily. Continue nicotine patch. Qualifiers: Nicotine product type: unspecified Substance use status: uncomplicated Qualified Code(s): F17.200 - Nicotine dependence, unspecified, uncomplicated (5) Hypothyroidism: Impression: Hold levothyroxine 50 mcg. Qualifiers: Hypothyroidism type: unspecified Qualified Code(s): E03.9 - Hypothyroidism, unspecified (6) GERD (gastroesophageal reflux disease): Impression: Hold Protonix. Qualifiers: Esophagitis presence: esophagitis presence not specified Qualified Code(s): K21.9 - Gastro-esophageal reflux disease without esophagitis (7) Small cell lung cancer, right upper lobe: Impression: Patient small cell lung cancer of the right upper lobe and received radiation treatment about a year ago. Has not followed up with oncologist since.
[2024-12-02] MEDS: FLUTICASONE NASAL SPRAY NAS SCH (12:16)
--- NOTE | 2024-12-03 08:41 | PROVIDER PROGRESS NOTE ---
Subjective Subjective Subjective: Patient is more lethargic today. She is able to swallow, so we are going to try to continue to push oral morphine only. She is still requiring a few doses of IV morphine. Yesterday, her expressed to Social Work a misunderstanding of Hospice care and comfort care. He has had a Hospice informational, and we've had a few conversations where he's agreed on comfort based care/Hospice Care. I will speak with him today again regarding what Hospice means. We discussed Hospice care, and he would like to proceed with that as discussed previously. He is concerned about being able to take care of her at home. He does state that he has a friend whose was on hospice, and they hired caregivers. His friend is helping him find appropriate caregivers. He thinks that having to pay rent and board at a facility is not something that's reasonable for him at his time. I did speak with the hospice team about whether she would qualify for inpatient hospice at this time, and she would not. Current Medications Current Medications Current Medications: Current Medications Generic Name Dose Route Start Last Admin Trade Name Freq PRN Reason Stop Dose Admin Acetaminophen 650 mg 11/24/24 09:15 Acetaminophen 325 Mg Tablet PO Q4HR PRN Pain or Fever > 38C (100.4F) Albuterol/Ipratropium 3 ml 11/30/24 09:44 Ipratropium/Albuterol 3 Ml Neb INH Q4HR PRN Wheezing Fluticasone Propionate 1 sprays 12/02/24 13:00 12/02/24 12:16 Fluticasone Nasal [place] CHRISTIANA 1 spr DAILY LORRAINE Administration Haloperidol 1 mg 11/28/24 15:45 Haloperidol 1 Mg Tablet PO Q2H PRN Agitation Haloperidol 1 mg 11/30/24 21:01 Haloperidol 5 Mg/Ml Vial IVP Q6H PRN Agitation Lorazepam 1 mg 11/28/24 15:45 12/02/24 06:52 Lorazepam 2 Mg/Ml Vial IVP 1 mg Q6H PRN Administration Anxiety/Agitation Metoclopramide HCl 5 mg 11/28/24 01:03 11/28/24 02:56 Metoclopramide 10 Mg/2 Ml Vial IVP 5 mg Q8H PRN Administration Nausea / Vomiting Morphine Sulfate 4 mg 11/30/24 10:07 12/02/24 23:50 Morphine 2 Mg/Ml Carpuject IVP 4 mg Q1HR PRN Administration Severe Pain (Level 7-10)/ SOA Morphine Sulfate 10 mg 12/01/24 08:24 12/03/24 07:41 Morphine Judith 10 Mg/0.5 Ml Oral Syringe PO 10 mg Q2HR PRN Administration Moderate Pain (Level 4-6) Ondansetron HCl 4 mg 11/23/24 03:14 Ondansetron 4 Mg/2 Ml Vial IVP Q6HR PRN Nausea / Vomiting Ondansetron HCl 4 mg 11/28/24 15:45 Ondansetron 4 Mg/2 Ml Vial IVP Q8H PRN Nausea / Vomiting Prednisone 20 mg 12/03/24 08:00 Prednisone 20 Mg Tablet PO DAILYWM LORRAINE Scopolamine HBr 1 patch 11/28/24 16:00 12/01/24 15:45 Scopolamine Patch TOP 1 patch Q3D LORRAINE Administration Sodium Chloride 10 ml 11/23/24 09:00 12/02/24 23:37 Sodium Chloride Flush 0.9% 10 Ml Syringe IVP 10 ml 0100,[id number],1700 LORRAINE Administration Sodium Chloride 10 ml 11/23/24 03:09 12/02/24 14:29 Sodium Chloride Flush 0.9% 10 Ml Syringe IVP 10 ml PRN PRN Administration NEEDED PER PROVIDER ORDERS Objective Vital Signs/Intake & Output Reviewed Vital Signs: Yes Vital Signs: Vital Signs x48h O2 Flow Rate 12/02/24 08:45 2 Intake & Output: Intake & Output 11/30/24 12/01/24 12/02/24 12/03/24 23:59 23:59 23:59 23:59 Intake Total 360 / 360 200 / 200 Output Total 950 / 950 775 / 775 700 / 700 300 / 300 Balance -931 / -931 -415 / -415 -500 / -500 -300 / -300 Objective General Appearance: positive Alert, Mild distress, Anxious and Other (answers yes/no questions, talks occasionally; pursed lip breathing, mild respiratory distress ) Eyes Bilateral: positive Normal inspection, PERRL and EOMI ENT: positive ENT inspection nml, Pharynx nml and No signs of dehydration Neck: positive Nml inspection, Thyroid nml and No JVD Respiratory: positive Chest non-tender and Other ( Diminished air entry bilaterally, mild wheezing) Cardiovascular: positive Regular rate & rhythm and No murmur; negative Tachycardia or Bradycardia Abdomen: positive Non-tender and No organomegaly; negative Guarding, Rebound, Hepatomegaly, Splenomegaly or Mass Back: positive Nml inspection; negative CVA tenderness (R) or CVA tenderness (L) Skin: positive Color nml, No rash, Warm and Dry Extremities: positive Non-tender, Full ROM and No pedal edema Neurologic/Psychiatric: positive Disoriented to place and Disoriented to time Lab Results 11/28/24 04:11 11/28/24 04:11 Other Labs: Lab Results x24hrs 11/27/24 Range/Units 23:49 POC Whole Bld Glucose 158 (70-100) mg/dL Sepsis Event Note (H) Evaluation Current Stage of Sepsis: Sepsis Possible source of Sepsis: positive Pulmonary Sepsis Criteria Sepsis Criteria: Suspected or Documented, Recorded Heart Rate greater than 90 bpm, Recorded Respiratory Rate greater than 20 and WBC count greater than 12,000 or less than 4000 Assessment/Plan Problem List (1) Acute hypoxic respiratory failure: Impression: Patient presented with fatigue, weakness, as well as tachypnea. Respiratory viral panel positive for parainfluenza. CTA done showed no pulmonary embolus, stable appearance of right upper lobe spiculated nodules as well as slightly increased prominence of satellite nodules along inferior margin. No pneumothorax, pleural effusions, or consolidations were seen. Patient was intubated on admission 11/22, extubated in the afternoon of 11/23, and then subsequently reintubated on 11/25. Extubated again on 11/28. After extubation, patient became tachypneic, and had increased work of breathing. She was placed on BiPAP. She expressed that she did not want to be reintubated. was at bedside, and he does state that this is in concordance with her goals of care. Had a long discussion with about her overall goals of care. We talked about what the next steps would look like. This included reintubation now for the third time, possible transfer for evaluation for tracheostomy, as well as ventilator dependence. She has a long history of COPD, and was on chronic prednisone therapy prior to admission. She is still currently smoking. We also talked about hospice care/comfort care, would shift the goals of care from aggressive medical treatment to comfort based care and make sure she was not feeling any pain, or anxiety, or work of breathing. I also reviewed the last advance care planning note that we have on file in 2022 which stated that the patient did not want to be intubated in the first place. The decided on making the patient comfort care. We did have the hospice team come by and speak with them. Continue IV morphine as needed. We have been using oral morphine with good results. Will speak with Hospice about hospice at home. Patient's would like to go with [facility]. Patient is awake and answers some questions, but continues to have significant air hunger and work of breathing. Continue oral prednisone 20mg daily as per home dose, and Duonebs as needed, as I believe it is helping with her work of breathing and comfort. (2) COPD (chronic obstructive pulmonary disease): Impression: See above. Qualifiers: COPD type: unspecified COPD Qualified Code(s): J44.9 - Chronic obstructive pulmonary disease, unspecified (3) Bipolar 1 disorder: Impression: Hold valproic acid. (4) Nicotine dependence: Impression: Patient continues to actively smoke daily. Continue nicotine patch. Qualifiers: Nicotine product type: unspecified Substance use status: uncomplicated Qualified Code(s): F17.200 - Nicotine dependence, unspecified, uncomplicated (5) Hypothyroidism: Impression: Hold levothyroxine 50 mcg. Qualifiers: Hypothyroidism type: unspecified Qualified Code(s): E03.9 - Hypothyroidism, unspecified (6) GERD (gastroesophageal reflux disease): Impression: Hold Protonix. Qualifiers: Esophagitis presence: esophagitis presence not specified Qualified Code(s): K21.9 - Gastro-esophageal reflux disease without esophagitis (7) Small cell lung cancer, right upper lobe: Impression: Patient small cell lung cancer of the right upper lobe and received radiation treatment about a year ago. Has not followed up with oncologist since.
[2024-12-03] MEDS: predniSONE 20 MG TABLET PO SCH (09:01)
[2024-12-03] MEDS: ACETAMINOPHEN 325 MG TABLET PO PRN (09:01)
[2024-12-03] MEDS: haloperidoL 1 MG TABLET PO PRN (11:01)
[2024-12-04 11:09] VITALS: BP 145/80; TEMP 97.9; O2SAT 96
--- NOTE | 2024-12-04 11:55 | PROVIDER PROGRESS NOTE ---
Subjective Prog Note Date Prog Note Date: 12/04/24 Prog Note Time: 11:54 Subjective Pt reports feeling: No change Subjective: Seen with nurse this morning. Eyes are open, she is staring into the distance. I have to move into her field of vision for her to notice me since she did not respond to my voice. Respiratory distress and that she is using accessory muscles but she appears to be in pain not because of shortness of breath. She tells me that her left leg is really painful and she is with silent tears Current Medications Current Medications Current Medications: Current Medications Generic Name Dose Route Start Last Admin Trade Name Freq PRN Reason Stop Dose Admin Acetaminophen 650 mg 11/24/24 09:15 12/03/24 18:14 Acetaminophen 325 Mg Tablet PO 650 mg Q4HR PRN Administration Pain or Fever > 38C (100.4F) Albuterol/Ipratropium 3 ml 11/30/24 09:44 Ipratropium/Albuterol 3 Ml Neb INH Q4HR PRN Wheezing Fluticasone Propionate 1 sprays 12/02/24 13:00 12/04/24 09:34 Fluticasone Nasal [place] CHRISTIANA 1 spr DAILY LORRAINE Administration Haloperidol 1 mg 11/28/24 15:45 12/03/24 20:31 Haloperidol 1 Mg Tablet PO 1 mg Q2H PRN Administration Agitation Lorazepam 1 mg 11/28/24 15:45 12/03/24 23:48 Lorazepam 2 Mg/Ml Vial IVP 1 mg Q6H PRN Administration Anxiety/Agitation Metoclopramide HCl 5 mg 11/28/24 01:03 11/28/24 02:56 Metoclopramide 10 Mg/2 Ml Vial IVP 5 mg Q8H PRN Administration Nausea / Vomiting Morphine Sulfate 4 mg 11/30/24 10:07 12/04/24 09:36 Morphine 2 Mg/Ml Carpuject IVP 4 mg Q1HR PRN Administration Severe Pain (Level 7-10)/ SOA Morphine Sulfate 10 mg 12/01/24 08:24 12/03/24 22:21 Morphine Judith 10 Mg/0.5 Ml Oral Syringe PO 10 mg Q2HR PRN Administration Moderate Pain (Level 4-6) Ondansetron HCl 4 mg 11/23/24 03:14 Ondansetron 4 Mg/2 Ml Vial IVP Q6HR PRN Nausea / Vomiting Ondansetron HCl 4 mg 11/28/24 15:45 Ondansetron 4 Mg/2 Ml Vial IVP Q8H PRN Nausea / Vomiting Prednisone 20 mg 12/03/24 08:00 12/04/24 09:34 Prednisone 20 Mg Tablet PO 20 mg DAILYWM LORRAINE Administration Scopolamine HBr 1 patch 11/28/24 16:00 12/01/24 15:45 Scopolamine Patch TOP 1 patch Q3D LORRAINE Administration Sodium Chloride 10 ml 11/23/24 09:00 12/04/24 09:34 Sodium Chloride Flush 0.9% 10 Ml Syringe IVP 10 ml [id number],1700 LORRAINE Administration Sodium Chloride 10 ml 11/23/24 03:09 12/02/24 14:29 Sodium Chloride Flush 0.9% 10 Ml Syringe IVP 10 ml PRN PRN Administration NEEDED PER PROVIDER ORDERS Objective Vital Signs/Intake & Output Reviewed Vital Signs: Yes Vital Signs: Vital Signs x48h Temp Pulse Resp BP Pulse Ox O2 Flow Rate 12/04/24 11:00 36.6 C 84 22 145/80 H 96 1 12/04/24 08:05 1 Intake & Output: Intake & Output 12/01/24 12/02/24 12/03/24 12/04/24 23:59 23:59 23:59 23:59 Intake Total 360 / 360 200 / 200 60 / 60 Output Total 775 / 775 700 / 700 950 / 950 500 / 500 Balance -415 / -415 -500 / -500 -890 / -890 -500 / -500 Objective General Appearance: positive Severe distress and Other (Cachectic, frail, fast breathing due to pain) Eyes Bilateral: positive PERRL and EOMI Neck: positive Nml inspection, Thyroid nml, No JVD and Other (Dry lips and oral mucosa); negative Stiff neck Respiratory: positive Other (Fast rate with shoulders going up and down quickly due to pain in her leg. Lungs are clear.) Cardiovascular: positive Regular rate & rhythm; negative Tachycardia or Bradycardia Abdomen: positive Non-tender, Nml bowel sounds and Other (Last BM noted to be November 27, distended) Skin: positive Dry and Pallor Extremities: positive Full ROM, Nml appearance and Pedal edema (3+) Neurologic/Psychiatric: positive Motor nml, Disoriented to person, Disoriented to place, Disoriented to time and Other (Follows commands, is verbalizing pain and tells you where it hurts) Lab Results 11/28/24 04:11 11/28/24 04:11 Sepsis Event Note (H) Evaluation Current Stage of Sepsis: Sepsis Possible source of Sepsis: positive Pulmonary Sepsis Criteria Sepsis Criteria: Suspected or Documented, Recorded Heart Rate greater than 90 bpm, Recorded Respiratory Rate greater than 20 and WBC count greater than 12,000 or less than 4000 Assessment/Plan Problem List (1) Acute hypoxic respiratory failure: Impression: Patient presented with fatigue, weakness, as well as tachypnea. PCR positive for parainfluenza. CTA w/o pulmonary embolus, stable appearance of right upper lobe spiculated nodules as well as slightly increased prominence of satellite nodules along inferior margin. No pneumothorax, pleural effusions, or consolidations were seen. Patient was intubated on admission 11/22, extubated in the afternoon of 11/23, and then subsequently reintubated on 11/25. Extubated again on 11/28. After extubation, patient became tachypneic, and had increased work of breathing. She was placed on BiPAP. She expressed that she did not want to be reintubated. was at bedside, and he does state that this is in concordance with her goals of care. The hospitalist on service that they had a long talk with her and goals of care were discussed. Reintubation with tracheostomy and vent dependence discussed. Already with a long history of COPD and on chronic prednisone. Still smoking. Transitioning to hospice was also discussed. Family has decided for transitioning to [facility] and has met with them. However is overwhelmed. Cannot take care of her. She does not meet criteria for GIP. She is not able to qualify under a long-term facility benefit. It would have to be self-pay. cannot do that and they are working toward getting her home. Social work meeting with regularly. Continue IV morphine as needed. Her leg pain was severe this am and RN was giving her meds. We have been using oral morphine with good results. Patient is awake and answers some questions, but continues to have significant air hunger and work of breathing. Continue oral prednisone 20mg daily as per home dose, and Duonebs as needed, as it is helping with her work of breathing and comfort. this has been her overall condition for 2 days now. No new orders for today as we await decision from as to where she goes. (2) COPD (chronic obstructive pulmonary disease): Impression: See above. Qualifiers: COPD type: unspecified COPD Qualified Code(s): J44.9 - Chronic obstructive pulmonary disease, unspecified (3) Bipolar 1 disorder: Impression: Hold valproic acid. (4) Nicotine dependence: Impression: Patient continues to actively smoke daily. Continue nicotine patch. Qualifiers: Nicotine product type: unspecified Substance use status: uncomplicated Qualified Code(s): F17.200 - Nicotine dependence, unspecified, uncomplicated (5) Hypothyroidism: Impression: Hold levothyroxine 50 mcg. Qualifiers: Hypothyroidism type: unspecified Qualified Code(s): E03.9 - Hypothyroidism, unspecified (6) GERD (gastroesophageal reflux disease): Impression: Hold Protonix. Qualifiers: Esophagitis presence: esophagitis presence not specified Qualified Code(s): K21.9 - Gastro-esophageal reflux disease without esophagitis (7) Small cell lung cancer, right upper lobe: Impression: Patient small cell lung cancer of the right upper lobe and received radiation treatment about a year ago. CT scan done during this admission shows spiculated nodule within the right upper lobe extending to the pleura similar to the July 16, 2024 CT. Measures 2 x 1.5 cm with adjacent satellite spiculated nodules. Has not followed up with oncologist since.
--- NOTE | 2024-12-05 07:53 | Discharge Summary ---
"Discharge Summary Admit Date: 11/23/24 Discharge Date: 12/05/24 Discharging Provider: Kaycee Hadley MD Primary Care Provider: KEVAN Jj Code Status: Do Not Attempt Resuscitation DIAGNOSES Discharge Diagnoses with Status of Each Condition: 1. Acute hypoxic respiratory failure 2. Parainfluenza 3. COPD with exacerbation 4. Dependence on a ventilator 5. Nicotine dependence 6. Bipolar disorder 7. Hypothyroidism 8. GERD 9. 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 She presents to the ER via EMS with complaints of worsening shortness of breath, O2 sats 80s at time of EMS arrival, placed on nasal cannula. She received IV solumedrol 125 mg and nebs en route, her shortness of breath progressed, she became agitated, they tried BIPAP (in the ambulance, no beds available in the ER), and patient became more combative, received ketamine for agitation. Patient is not on home O2. In the ER she remained agitated, confused, intubated for airway protection due to significant respiratory distress, although sats stable on nasal cannula. At time of my evaluation patient is intubated and sedated, unable to obtain ROS. Patient received IV antibiotics in ER. CONSULTS | PROCEDURES Procedures: For chest x-rays were done. She has right upper lobe scarring and atelectasis versus small infiltrate not significantly changed over 4 x-rays. No airspace opacities. No pleural effusions. X-rays were done for ET tube placement with the multiple intubations and extubation she had. Chest/thorax CT angiogram does not have pulmonary embolism. Enteric tube positioned from the thoracic inlet with sideport within the gastric bubble. Spiculated nodule within the right upper lobe similar to previous CT July 16, 2024. Slight increased prominence of the satellite nodules along the inferior margin. Support devices present. Blood cultures from November 22 reviewed and no growth after 5 days HOSPITAL COURSE Hospital Course: (1) Acute hypoxic respiratory failure: Impression: Patient presented with fatigue, weakness, as well as tachypnea. PCR positive for parainfluenza. CTA w/o pulmonary embolus, stable appearance of right upper lobe spiculated nodules as well as slightly increased prominence of satellite nodules along inferior margin. No pneumothorax, pleural effusions, or consolidations were seen. Patient was intubated on admission 11/22, extubated in the afternoon of 11/23, and then subsequently reintubated on 11/25. Extubated again on 11/28. After extubation, patient became tachypneic, and had increased work of breathing. She was placed on BiPAP. She expressed that she did not want to be reintubated. was at bedside, and he does state that this is in concordance with her goals of care. The hospitalist on service that they had a long talk with her and goals of care were discussed. Reintubation with tracheostomy and vent dependence discussed. Already with a long history of COPD and on chronic prednisone. Still smoking. Transitioning to hospice was also discussed. Family has decided for transitioning to [facility] and has met with them. However is overwhelmed. Cannot take care of her. She does not meet criteria for GIP. She is not able to qualify under a [facility] benefit. It would have to be self-pay. cannot do that and they are working toward getting her home. Social work met with regularly. we continued IV morphine as needed. Her leg pain was severe this am and RN was giving her meds. We have been using oral morphine with good results. At discharge the IV morphine was stopped and roxanol was continued. Patient is awake and answers some questions, but continues to have significant air hunger and work of breathing. At discharge I am continuing oral prednisone at 15 mg daily as per home dose, and Duonebs as needed, as it is helping with her work of breathing and comfort. (2) COPD (chronic obstructive pulmonary disease): Impression: See above and below #4. Qualifiers: COPD type: unspecified COPD Qualified Code(s): J44.9 - Chronic obstructive pulmonary disease, unspecified (3) Bipolar 1 disorder: Impression: Valproic acid held during her stay and at discharge. (4) Nicotine dependence: Impression: Patient was actively smoking daily [employer]. Continue nicotine patch. Qualifiers: Nicotine product type: unspecified Substance use status: uncomplicated Qualified Code(s): F17.200 - Nicotine dependence, unspecified, uncomplicated (5) Hypothyroidism: Impression: Levothyroxine 50 mcg held during her stay and not resumed at discharge. Qualifiers: Hypothyroidism type: unspecified Qualified Code(s): E03.9 - Hypothyroidism, unspecified (6) GERD (gastroesophageal reflux disease): Impression: Resume prn omeprazole at home. Qualifiers: Esophagitis presence: esophagitis presence not specified Qualified Code(s): K21.9 - Gastro-esophageal reflux disease without esophagitis (7) Small cell lung cancer, right upper lobe: Impression: Patient small cell lung cancer of the right upper lobe and received radiation treatment about a year ago. CT scan done during this admission shows spiculated nodule within the right upper lobe extending to the pleura similar to the July 16, 2024 CT. Measures 2 x 1.5 cm with adjacent satellite spiculated nodules. Has not followed up with oncologist since. At discharge she was staring off into the distance. She would look at me when I spoke her name. But not verbally responsive. Use of accessory muscles evident. Mild tachypnea. Temperature is 36.6, heart rate 84, respirations 22, 96% on 2 L. Blood pressure 145/80. Skin was warm and pink, but hands and feet were cold. There was no mottling. Almost no air movement and lungs were nearly silent. Regular rate and rhythm with systolic ejection murmur. An abdomen that was soft, nontender and hypoactive bowel sounds. Greater than 30 minutes spent coordinating discharge This document was made in part using voice recognition software. While efforts are made to proofread this document, sound alike and grammatical errors may occur. ALLERGIES Allergies Allergy/AdvReac Type Severity Reaction Status Date / Time Barbiturates Allergy Severe Unknown Verified 11/22/24 22:46 fluconazole Allergy Intermediate Pt prefers Verified 11/22/24 22:46 not to take. Pt has concerns for these side effec MEDICATIONS Ambulatory Orders Medication Instructions Recorded Confirmed ciclesonide 160 mcg/actuation 1 puff IH BID 05/06/19 11/23/24 aerosol inhaler ([place]ves[place]) ipratropium 0.5 mg-albuterol 3 mg See Rx Instructions .Route 06/18/24 11/23/24 (2.5 mg base)/3 mL nebulization .COMPLEX #270 mL soln cyanocobalamin (vitamin B-12) 1,000 mcg PO QDAY 06/26/24 11/23/24 1,000 mcg capsule cyclobenzaprine 10 mg tablet 10 mg PO TID PRN muscle spasm 06/26/24 11/23/24 nebulizer and compressor 06/26/24 06/26/24 omeprazole 20 mg capsule,delayed 20 mg PO QDAY 06/26/24 11/23/24 release tiotropium 2.5 mcg-olodaterol 2.5 2 puff inhalation QDAY 06/26/24 11/23/24 mcg/actuation mist for inhalation (Stiolto Respimat) albuterol sulfate 90 mcg/actuation See Rx Instructions .Route 07/20/24 11/23/24 aerosol inhaler .COMPLEX #13.4 grams fluticasone propionate 50 1 spray intranasal BID PRN nasal 09/03/24 11/23/24 mcg/actuation nasal congestion #48 grams spray,suspension fexofenadine PO DIRECTED 10/26/24 sodium chloride [Saline Solution] 10/26/24 prednisone 5 mg tablet 15 mg PO DAILY 11/23/24 11/23/24 acetaminophen 325 mg tablet 650 mg (2 x 325 mg) PO Q4HR PRN 12/05/24 Pain Or Fever > 38c (100.4f) #60 tabs bisacodyl 10 mg rectal suppository 10 mg NE DAILY PRN Constipation #3 12/05/24 (Dulcolax (bisacodyl)) ea lorazepam 0.5 mg tablet (Ativan) 0.5 mg PO Q6H PRN Anxiety #10 tabs 12/05/24 morphine concentrate 100 mg/5 mL 5 mg (0.25 mL) PO Q4H PRN pain or 12/05/24 (20 mg/mL) oral solution breathlessness #30 mL olanzapine 5 mg disintegrating 5 mg PO DAILY PRN Agitation, 12/05/24 tablet (Zyprexa Zydis) nausea and vomiting #10 tabs sennosides 8.6 mg tablet (senna) 8.6 mg PO BID PRN Constipation #10 12/05/24 tabs PHYSICAL EXAM AT DISCHARGE Vital Signs: Last vital signs December 04 were 36.6, heart rate 84, respirations 22, O2 sat 96% on 1 L. Blood pressure 145/80. Since she is on comfort measures no other vital signs were accumulated. General Appearance: positive Moderate distress and Other (Cachectic, confused, severely fatigued elderly female. She is able to communicate when she is uncomfortable with pain.) Eyes Bilateral: positive PERRL ENT: positive Other (Mouth breathing has caused dehydration) Neck: negative Stiff neck Respiratory: positive Other (Moderate respiratory distress with weakness. She is not grunting or using her abdominal muscles but the struggle to breathe causes her shoulders to go up and down and mild rib retraction.) Cardiovascular: positive Regular rate & rhythm and Systolic murmur Abdomen: positive Non-tender, No organomegaly and Nml bowel sounds Skin: positive Dry and Pallor Extremities: positive Pedal edema and Other (Very cold hands and feet, no mottling) Neurologic/Psychiatric: positive Disoriented to place and Disoriented to time; negative Motor nml (No focal weakness but she is profoundly weak. Unable to even roll over on her side on her own.) LABS 11/28/24 04:11 11/28/24 04:11 SEPSIS Current Stage of Sepsis: Sepsis Possible source of Sepsis: Pulmonary Sepsis Criteria: Suspected or Documented, Recorded Heart Rate greater than 90 bpm, Recorded Respiratory Rate greater than 20 and WBC count greater than 12,000 or less than 4000 FOLLOW UP Follow Up: She is transitioning to hospice and follow-up with me with hospice senior medical billing specialist and their nurses. TIME SPENT Time Spent in Discharge (Minutes): 40 Discharge Plan Discharge Patient Disposition: 50 Hospice/Home DC/Xfer Condition: Poor Medically Cleared Date:: 12/03/24 Medically Cleared Comments:: overwhelmed and trying to decide where to take her since SNF not an option and she couldn't stay here Prescriptions: New acetaminophen 325 mg Tablet 650 mg PO Q4HR PRN (Reason: Pain Or Fever > 38c (100.4f)) Qty: 60 0RF sennosides [senna] 8.6 mg Tablet 8.6 mg PO BID PRN (Reason: Constipation) Qty: 10 0RF Rx Instructions: Take one tablet, by mouth, twice a day as needed for constipation. morphine concentrate 100 mg/5 mL (20 mg/mL) Solution 5 mg PO Q4H PRN (Reason: pain or breathlessness) Qty: 30 0RF Rx Instructions: Take 0.25 ml (equal to 5 mg) by mouth, or under the tongue, every 4 hours as needed for moderate to severe pain. lorazepam [Ativan] 0.5 mg Tablet 0.5 mg PO Q6H PRN (Reason: Anxiety) Qty: 10 0RF Rx Instructions: Take one tablet, by mouth, every 6 hours as needed for anxiety. bisacodyl [Dulcolax (bisacodyl)] 10 mg Suppository 10 mg NE DAILY PRN (Reason: Constipation) Qty: 3 0RF Rx Instructions: Unwrap and insert one suppository rectally daily, as needed for constipation. olanzapine [Zyprexa Zydis] 5 mg Tablet,Disintegrating 5 mg PO DAILY PRN (Reason: Agitation, nausea and vomiting) Qty: 10 0RF Rx Instructions: Dissolve one tablet, in mouth, twice daily as needed for agitation or nausea and/or vomiting. Continued ipratropium-albuterol 0.5 mg-3 mg(2.5 mg base)/3 mL solution for nebulization See Rx Instructions .ROUTE .COMPLEX Qty: 270 3RF Dose Instruction: Inhale contents of 1 vial (1 ampule) as directed via nebulizer 3 times daily in nebulizer for wheezing, coughing, and shortness of breath Rx Instructions: Inhale contents of 1 vial (1 ampule) as directed via nebulizer 3 times daily in nebulizer for wheezing, coughing, and shortness of breath albuterol sulfate 90 mcg/actuation HFA aerosol inhaler See Rx Instructions .ROUTE .COMPLEX Qty: 13.4 1RF Dose Instruction: Inhale 1 puff using inhaler every four to six hours as needed for copd for wheezing, cough, shortness of breath Rx Instructions: Inhale 1 puff using inhaler every four to six hours as needed for copd for wheezing, cough, shortness of breath fluticasone propionate 50 mcg/actuation spray,suspension 1 spray intranasal BID PRN (Reason: nasal congestion) Qty: 48 1RF (DME) sodium chloride [Saline Solution] See Rx Instructions .ROUTE Rx Instructions: Nasal Moisturizing [place] Solution (Saline soln) .... [place] in each nostril four times daily fexofenadine PO DIRECTED Rx Instructions: Elena Allergy Alvesco 6.1 GM HFA aerosol inhaler 1 puff IH BID prednisone 5 mg tablet 15 mg PO DAILY cyanocobalamin (vitamin B-12) 1,000 mcg capsule 1,000 mcg PO QDAY cyclobenzaprine 10 mg tablet 10 mg PO TID PRN (Reason: muscle spasm) omeprazole 20 mg capsule,delayed release(DR/EC) 20 mg PO QDAY (DME) nebulizer and compressor Device See Rx Instructions .ROUTE Rx Instructions: As directed Stiolto Respimat 2.5-2.5 mcg/actuation mist 2 puff inhalation QDAY Discontinued divalproex [Depakote] 500 MG tablet,delayed release (DR/EC) 500 mg PO BID duloxetine 30 mg capsule,delayed release(DR/EC) 30 mg PO QDAY Rx Instructions: Take one capsule by mouth daily. If no improvement after two weeks, may increase to 2 capsules daily. Contact PCP to report medication effect. levothyroxine 50 mcg tablet 50 mcg PO QDAY Activity Restrictions: Activity as Tolerated Diet: Regular Health Concerns: You came to our emergency room because of severe shortness of breath. You have end-stage emphysema and are on oxygen at home and still smoke. You also have a history of right lung cancer. We found you to be in severe respiratory distress due to your emphysema. You had a very miriam course in the hospital and had to have us help you breathe through putting a tube into your lungs through your mouth. You went on and off the machines twice and were getting ready to go on a third time when you and your decided you were not going to do this anymore. You have decided to transition to hospice. He will be going home and your and caregivers will be taking care of you. Hospice will also help take care of you. We are sending you home with medications to help you with comfort. Those include morphine drops when the respiratory distress and pain are severe. Lorazepam for when the anxiety is very severe. Nausea medicines. And secretion medicines. Hospice will be meeting you at the house when you get home. Print Language: [place] Patient Instructions: Hospice Start, Hospice Pain Management, Hospice Dyspnea Care Follow-up Care: Genevieve Sumner ARNP [Primary Care Provider] -"
== END 2024-12-05 10:00 | disposition hospice, home (50) | DRG 871 ==
LOC: EDBD → ED 22:06 → ICU 11-23 03:09 → MS2 11-29 16:58
PROVIDERS: ADMIT Student in an Organized Health Care Education/Training Program; ATTEND Student in an Organized Health Care Education/Training Program
DX: Z51.5 Encounter for palliative care; M79.605 Pain in left leg; B34.8 Other viral infections of unspecified site; E03.9 Hypothyroidism, unspecified; Z66 Do not resuscitate; R41.82 Altered mental status, unspecified; G92.8 Other toxic encephalopathy; R79.89 Other specified abnormal findings of blood chemistry; Z85.118 Personal history of other malignant neoplasm of bronchus and lung; F31.9 Bipolar disorder, unspecified; D72.829 Elevated white blood cell count, unspecified; Z87.891 Personal history of nicotine dependence; Z79.52 Long term (current) use of systemic steroids; K21.9 Gastro-esophageal reflux disease without esophagitis; E83.39 Other disorders of phosphorus metabolism; Z78.1 Physical restraint status; R00.0 Tachycardia, unspecified; F17.210 Nicotine dependence, cigarettes, uncomplicated; J96.01 Acute respiratory failure with hypoxia; J44.9 Chronic obstructive pulmonary disease, unspecified; A41.9 Sepsis, unspecified organism; J44.1 Chronic obstructive pulmonary disease with (acute) exacerbation; I21.A1 Myocardial infarction type 2; R00.1 Bradycardia, unspecified; C34.11 Malignant neoplasm of upper lobe, right bronchus or lung; I95.2 Hypotension due to drugs